=== PATIENT | female | born 1955 | race African-American/Black ===

== ENCOUNTER 2016-10-25 19:25 | Emergency (ER) | payer OTHER ==
[~2016-10-25] VITALS: Ht 157.5 cm; Wt 56.7 kg
[2016-10-25 19:31] VITALS: BP 166/84
--- NOTE | 2016-10-25 19:45 | PHYS DOC ---
Past Medical History Past Medical History: Asthma, [place] Past Surgical History: Other Additional Past Surgical Histo: 're-did my valves' Alcohol Use: None Drug Use: None Adult General Chief Complaint Chief Complaint: ELBOW PROBLEM HPI HPI Patient is a 61 year old male presents emergency department stating that she fell about 2 weeks ago and landed on her left elbow. She states that she is here tonight because she has fluid on the elbow. She denies any numbness or tingling into the hands. She has full range of motion of the left elbow. She does state she is right-hand dominant. Shunt denies any fever, chills or any nausea vomiting. Review of Systems Review of Systems Constitutional: Denies fever or chills [] Eyes: Denies change in visual acuity, redness, or eye pain [] HENT: Denies nasal congestion or sore throat [] Respiratory: Denies cough or shortness of breath [] Cardiovascular: No additional information not addressed in HPI [] GI: Denies abdominal pain, nausea, vomiting, bloody stools or diarrhea [] : Denies dysuria or hematuria [] Musculoskeletal: Denies back pain. C/o left elbow having water on it Integument: Denies rash or skin lesions [] Neurologic: Denies headache, focal weakness or sensory changes [] Allergies Allergies Allergies Coded Allergies Type Severity Reaction Last Updated Verified hydrocodone Allergy Intermediate Itching 10/25/16 Yes Physical Exam Physical Exam Constitutional: Well developed, well nourished, no acute distress, non-toxic appearance. [] HENT: Normocephalic, atraumatic, bilateral external ears normal, oropharynx moist, no oral exudates, nose normal. [] Eyes: PERRLA, EOMI, conjunctiva normal, no discharge. [] Neck: Normal range of motion, no tenderness, supple, no stridor. [] Cardiovascular:Heart rate regular rhythm Lungs & Thorax: Bilateral breath sounds clear to auscultation [] Skin: Warm, dry, no erythema, no rash. [] Back: No tenderness Extremities: No tenderness, no cyanosis, no clubbing, ROM intact, no edema. Left elbow appears to have swelling noted, no redness, no warmth and no drainage noted from the site. Patient with full ROM noted. peripheral pulses 2+ cap refill brick < 2 seconds. Neurologic: Alert and oriented X 3, normal motor function, normal sensory function, no focal deficits noted. [] Psychologic: Affect normal, judgement normal, mood normal. [] Current Patient Data Vital Signs Vital Signs Date Time Temp Pulse Resp B/P Pulse Ox O2 Delivery O2 Flow Rate FiO2 10/25/16 19:31 98.5 75 20 96 Room Air 98.5 EKG EKG [] Radiology/Procedures Radiology/Procedures [] Course & Med Decision Making Course & Med Decision Making Pertinent Labs and Imaging studies reviewed. (See chart for details) X-rays were negative for any bony abnormalities. No significant effusion noted at the elbow although there does appear to be swelling along the forearm area per Dr. Rossi. Patient will be placed in a sling with recommendations for ice packs on 20 minutes off 20 minutes several times today also recommended patient to take ibuprofen 600 mg every 8 hours. He'll follow-up with orthopedic. Signs and symptoms to return back to emergency department was provided. Patient agrees with discharge instructions treatment regimens and follow-up recommendations. [] Dragon Disclaimer Dragon Disclaimer This electronic medical record was generated, in whole or in part, using a voice recognition dictation system. Departure Departure Impression: Primary Impression: Elbow pain, left Disposition: 01 HOME, SELF-CARE Condition: STABLE Referrals: NO PCP (PCP) LISSETH FOSS MD Patient Instructions: Elbow Injury-Brief Additional Instructions: Activity as tolerated Ibuprofen 600 mg every 8 hours with food, stop taking if you develop upset stomach Wear the sling for comfort You make take the arm out of the sling several times a day Ice packs on 20 minutes and off 20 minutes several times a day Followup with orthopedic in 1 weeks Return to emergency department as needed for signs and symptoms that become worse. CASTILLO ROSADO APRN Oct 25, 2016 19:45
--- NOTE | 2016-10-26 08:41 | RAD ---
Left elbow, 3 views, 10/25/2016: History: Fall, elbow pain No fracture or dislocation is identified. There is mild spurring at the elbow joint. No joint effusion is seen. There is a prominent lucency projected over the deep soft tissues at the proximal forearm level. The appearance suggests the present of a fatty mass such as a lipoma. IMPRESSION: 1. No acute bony abnormality is detected. 2. Low-density mass in the proximal forearm, most likely a lipoma.
== END 2016-10-25 20:15 | disposition home or self-care (01) ==
LOC: ER 19:25
DX: M25.522 Pain in left elbow (principal); J45.909 Unspecified asthma, uncomplicated; I25.2 Old myocardial infarction; Z88.6 Allergy status to analgesic agent
CPT/HCPCS: 73080; 99284

== ENCOUNTER 2017-01-17 13:25 | Emergency (ER) | payer OTHER ==
[2017-01-17 13:53] LABS: BASO # 0.1 x10^3/uL (0.0-0.2); BASO % 1 % (0-3); EOS % 0 % (0-3); HEMATOCRIT 39.3 % (36.0-47.0); LYMPH # 2.7 x10^3/uL (1.0-4.8); LYMPH % 33 % (24-48); MEAN CORPUSCULAR HEMOGLOBIN 31 pg (25-35); MEAN CORPUSCULAR HGB CONC 33 g/dL (31-37); MEAN CORPUSCULAR VOLUME 93 fL (79-100); MONO % 5 % (0-9); NEUT % 61 % (31-73); PLATELET COUNT 252 x10^3/uL (140-400); RED BLOOD COUNT 4.23 x10^6/uL (3.50-5.40); RED CELL DISTRIBUTION WIDTH 14.4 % (11.5-14.5); WHITE BLOOD COUNT 8.2 x10^3/uL (4.0-11.0)
[2017-01-17 14:05] LABS: CALCIUM 9.1 mg/dL (8.5-10.1); CREATININE 0.8 mg/dL (0.6-1.0); GFR 87.9; POTASSIUM 3.7 mmol/L (3.5-5.1)
[2017-01-17 14:11] LABS: ALBUMIN 4.1 g/dL (3.4-5.0); ALBUMIN/GLOBULIN RATIO 1.3 (1.0-1.7); MAGNESIUM 1.9 mg/dL (1.8-2.4); TOTAL PROTEIN 7.3 g/dL (6.4-8.2)
[2017-01-17 14:23] LABS: PROTHROMBIN TIME PATIENT 12.9 SEC (11.7-14.0)
[2017-01-17] MEDS ORDERED: IPRATRPIUM/ALBUTEROL 0.5/2.5MG 3 ML NEBU. NEB ONE (14:30)
[2017-01-17] MEDS ORDERED: fentaNYL PF VIAL 100 MCG/2 ML VIAL IV ONE (14:30)
[2017-01-17] MEDS ORDERED: DEXAMETHASONE SOD PHOS 20 MG/5 ML VIAL. IV ONE (14:30)
[2017-01-17] MEDS ORDERED: PROAIR HFA8.5 GM INH (14:41)
--- NOTE | 2017-01-17 14:41 | PHYS DOC ---
Past Medical History Past Medical History: Asthma, [place] Past Surgical History: Other Additional Past Surgical Histo: 're-did my valves' Alcohol Use: None Drug Use: None Adult General Chief Complaint Chief Complaint: CHEST PAIN HPI HPI Patient is a 61 year old female presenting to the emergency department for evaluation of left-sided chest pain has been going on since last night and has persisted all day today. Cannot describe the pain and says that it is not tight pressure achy burning sharp stabbing. She says it just hurts. Patient says that she has some shortness of breath with it but no nausea vomiting diaphoresis. Patient said that she has a history of heart attacks and her last heart attack was in 1994 that she required no stents. Her trencher driver as it [facility] but she does not remember who it is and she says she has an appointment with cardiology in July. Patient took a full dose aspirin and nitroglycerin and neither helped her pain. Review of Systems Review of Systems Constitutional: Denies fever or chills [] Eyes: Denies change in visual acuity, redness, or eye pain [] HENT: Denies nasal congestion or sore throat [] Respiratory: Denies cough. + shortness of breath [] Cardiovascular: + CP GI: Denies abdominal pain, nausea, vomiting, bloody stools or diarrhea [] : Denies dysuria or hematuria [] Musculoskeletal: Denies back pain or joint pain [] Integument: Denies rash or skin lesions [] Neurologic: Denies headache, focal weakness or sensory changes [] Current Medications Current Medications Current Medications Medications (Trade) Dose Ordered Sig/[facility] Start Time Stop Time Status Last Admin Dose Admin Albuterol/ Ipratropium (Duoneb) 3 ml 1X ONCE 01/17/17 14:30 01/17/17 14:31 DC Dexamethasone Sodium Phosphate (Decadron) 8 mg 1X ONCE 01/17/17 14:30 01/17/17 14:31 DC Fentanyl Citrate (Fentanyl 2ml Vial) 75 mcg 1X ONCE 01/17/17 14:30 01/17/17 14:31 DC Allergies Allergies Allergies Coded Allergies Type Severity Reaction Last Updated Verified hydrocodone Allergy Intermediate Itching 10/25/16 Yes Physical Exam Physical Exam Constitutional: Well developed, well nourished, no acute distress, non-toxic appearance. [] HENT: Normocephalic, atraumatic, bilateral external ears normal, oropharynx moist, no oral exudates, nose normal. [] Eyes: PERRLA, EOMI, conjunctiva normal, no discharge. [] Neck: Normal range of motion, no tenderness, supple, no stridor. [] Cardiovascular:Heart rate regular rhythm, no murmur [] Lungs & Thorax: Bilateral breath sounds diminished with inspiratory and expiratory wheezing. Abdomen: Bowel sounds normal, soft, no tenderness, no masses, no pulsatile masses. [] Skin: Warm, dry, no erythema, no rash. [] Back: No tenderness, no CVA tenderness. [] Extremities: No tenderness, no cyanosis, no clubbing, ROM intact, no edema. [] Neurologic: Alert and oriented X 3, normal motor function, normal sensory function, no focal deficits noted. [] Current Patient Data Vital Signs Vital Signs Date Time Temp Pulse Resp B/P (MAP) Pulse Ox O2 Delivery O2 Flow Rate FiO2 01/17/17 13:33 98.6 91 20 146/69 (94) 96 Room Air 98.6 Lab Values Laboratory Tests Test 01/17/17 13:43 White Blood Count 8.2 x10^3/uL (4.0-11.0) Red Blood Count 4.23 x10^6/uL (3.50-5.40) Hemoglobin 13.0 g/dL (12.0-15.5) Hematocrit 39.3 % (36.0-47.0) Mean Corpuscular Volume 93 fL (79-100) Mean Corpuscular Hemoglobin 31 pg (25-35) Mean Corpuscular Hemoglobin Concent 33 g/dL (31-37) Red Cell Distribution Width 14.4 % (11.5-14.5) Platelet Count 252 x10^3/uL (140-400) Neutrophils (%) (Auto) 61 % (31-73) Lymphocytes (%) (Auto) 33 % (24-48) Monocytes (%) (Auto) 5 % (0-9) Eosinophils (%) (Auto) 0 % (0-3) Basophils (%) (Auto) 1 % (0-3) Neutrophils # (Auto) 4.9 x10^3uL (1.8-7.7) Lymphocytes # (Auto) 2.7 x10^3/uL (1.0-4.8) Monocytes # (Auto) 0.4 x10^3/uL (0.0-1.1) Eosinophils # (Auto) 0.0 x10^3/uL (0.0-0.7) Basophils # (Auto) 0.1 x10^3/uL (0.0-0.2) Prothrombin Time 12.9 SEC (11.7-14.0) Prothrombin Time INR 1.0 (0.8-1.1) PTT 27 SEC (24-38) Sodium Level 143 mmol/L (136-145) Potassium Level 3.7 mmol/L (3.5-5.1) Chloride Level 104 mmol/L (98-107) Carbon Dioxide Level 31 mmol/L (21-32) Anion Gap 8 (6-14) Blood Urea Nitrogen 12 mg/dL (7-20) Creatinine 0.8 mg/dL (0.6-1.0) Estimated GFR (Cockcroft-Gault) 87.9 BUN/Creatinine Ratio 15 (6-20) Glucose Level 96 mg/dL (70-99) Calcium Level 9.1 mg/dL (8.5-10.1) Magnesium Level 1.9 mg/dL (1.8-2.4) Total Bilirubin 1.0 mg/dL (0.2-1.0) Aspartate Amino Transferase (AST) 26 U/L (15-37) Alanine Aminotransferase (ALT) 29 U/L (14-59) Alkaline Phosphatase 71 U/L (46-116) Creatine Kinase 79 U/L (26-192) Troponin I Quantitative < 0.017 ng/mL (0.000-0.055) AX-Awx-I-Type Natriuretic Peptide 514 pg/mL (0-124) H Total Protein 7.3 g/dL (6.4-8.2) Albumin 4.1 g/dL (3.4-5.0) Albumin/Globulin Ratio 1.3 (1.0-1.7) Lipase 143 U/L (73-393) Laboratory Tests 01/17/17 13:43 Laboratory Tests 01/17/17 13:43 EKG EKG Sinus rhythm at 99 beats per minutes with leftward axis no obvious ST elevation or depression that she has inverted T waves in leads V1 and V2 and aVR. Radiology/Procedures Radiology/Procedures normal mediastinum, normal heart size. No obvious free air or pneumothorax or opacity. Course & Med Decision Making Course & Med Decision Making Patient with abnormal EKG in the setting of an elderly woman with multiple risk factors and prior heart attack so I recommended admission to the hospital. Patient refused stating that her grandchildren are in town and that she cannot stay in the hospital. She verbalized understanding of the limitations of the test I can do in the emergency department and she accepted the risks of and disability by leaving against my advice. I told her to use the albuterol and take her aspirin daily and follow with the trencher driver within 72 hours and come back to the ER sooner with any new worsening pain fevers vomiting or other general concerns. Dragon Disclaimer Dragon Disclaimer This electronic medical record was generated, in whole or in part, using a voice recognition dictation system. Departure Departure Impression: Primary Impression: Chest pain Additional Impression: Wheezing Disposition: HOME, SELF-CARE Condition: GOOD Referrals: MELVI SCOTT MD Patient Instructions: Chest Pain (Nonspecific) Additional Instructions: Take a full dose aspirin daily and follow with the trencher driver and come back to the ED sooner with any new or worsening symptoms. Thank you! Scripts Albuterol Sulfate (PROAIR HFA INHALER) 8.5 Gm Hfa.aer.ad 1 PUFF INH Q4HRS Y for SHORTNESS OF BREATH, #1 INHALER 0 Refills Prov: JAE FUENTES DO 01/17/17 Problem Qualifiers Primary Impression: Chest pain Chest pain type: unspecified Qualified Codes: R07.9 - Chest pain, unspecified JAE FUENTES DO Jan 17, 2017 14:41
[2017-01-17 15:00] VITALS: BP 179/79
--- NOTE | 2017-01-17 15:49 | RAD ---
EXAM: Chest one view. HISTORY: Left chest pain. COMPARISON: None. FINDINGS: A frontal view of the chest is obtained. There are changes of coronary artery bypass grafting. There are no confluent infiltrates. There is no pneumothorax or pleural effusion. The heart is at the upper limits of normal size. The aorta is calcified and tortuous. IMPRESSION: 1. No confluent infiltrates.
--- NOTE | 2017-01-18 06:39 | EKG ---
[facility] [address] [place] [address] Test Date: 2017-01-17 Test Time: 13:37:41 Pat Name: ADE NOVAK Department: Room: Gender: F Water Tester: : 1955 Requested By: JAE FUENTES Order Number: [id number] Reading MD: Quinton Ennis Measurements Intervals [place] Rate: 99 P: 132 HI: 134 QRS: -172 QRSD: 74 T: 63 QT: 354 QTc: 460 Interpretive Statements SINUS TACHCYARDIA RVH LIMB LEAD MISPLACEMENT NON-SPECIFIC ST/T CHANGES Electronically Signed On 01-18-2017 9:39:54 CDT by Quinton Ennis
== END 2017-01-17 15:33 | disposition home or self-care (01) ==
LOC: ER 13:25
DX: R07.89 Other chest pain (principal); R06.2 Wheezing; R06.02 Shortness of breath; J45.909 Unspecified asthma, uncomplicated; I25.2 Old myocardial infarction; Z88.5 Allergy status to narcotic agent
CPT/HCPCS: 36415; 71010; 80053; 82550; 83690; 83735; 83880; 84484; 85027; 85610; 85730; 93005; 94250; 94640; 96374; 96375; 99285; J1100; J3010; J7620

== ENCOUNTER 2017-02-22 14:13 | Emergency (ER) | payer OTHER ==
[~2017-02-22] VITALS: Ht 157.5 cm; Wt 56.7 kg
[~2017-02-22 14:13] MED LIST: PROAIR HFA8.5 GM INH
[2017-02-22] MEDS ORDERED: IV NORMAL SALINE 1000ML BAG 1,000 ML IV SCH (14:35)
--- NOTE | 2017-02-22 14:44 | EKG ---
[facility] [address] [place] [address] Test Date: 2017-02-22 Test Time: 14:21:52 Pat Name: ADE NOVAK Department: Room: Gender: F Singing Messenger: : 1955 Requested By: DEE WILLETT Order Number: [id number] Reading MD: Measurements Intervals [place] Rate: 54 P: 53 NC: 170 QRS: -8 QRSD: 78 T: 80 QT: 440 QTc: 419 Interpretive Statements SINUS RHYTHM LEFT ATRIAL ABNORMALITY LEFTWARD AXIS R-S TRANSITION ZONE IN V LEADS DISPLACED TO THE RIGHT QRS(T) CONTOUR ABNORMALITY CONSIDER ANTEROSEPTAL MYOCARDIAL DAMAGE ST & T ABNORMALITY, CONSIDER ANTERIOR ISCHEMIA OR LEFT VENTRICULAR STRAIN HIGH LATERAL ISCHEMIA OR LEFT VENTRICULAR STRAIN RI6.01 Unconfirmed report No previous ECG available for comparison
[2017-02-22] MEDS ORDERED: ASPIRIN CHEWABLE 81 MG TABLET. PO ONE (14:45)
[2017-02-22] MEDS ORDERED: 0.9 % SODIUM CHLORIDE 10 ML DISP.SYRIN. IV PRN (14:45)
--- NOTE | 2017-02-22 14:45 | PHYS DOC ---
Past Medical History Past Medical History: Asthma, Hypertension, LA Past Surgical History: Other Additional Past Surgical Histo: 're-did my valves',OPEN HEART Smoking: Cigarettes Additional Information: PATIENT STATES, "STOPPED SMOKING 3 DAYS AGO." Alcohol Use: None Drug Use: None Adult General Chief Complaint Chief Complaint: CHEST PAIN [facility] HPI Is patient is a pleasant 61-year-old female with a history of LA back in 1997 presents with chest pain that began 2 days ago on Tuesday at rest. She describes the chest pain as dull and achy as a pressure over her left breast that is been continuous for the last 2 days. It is worsened with range of motion at the shoulder is not change with position but it is increased with exertion. The pain does not radiate to her neck, back, shoulder, abdomen. Patient denies any direct trauma, denies any recent URI symptoms like cough, runny nose, congestion , fevers, chills, patient normally gets her care at [facility] in today because the chest pain. Nothing makes it feel any better. It is not improved with rest or her medications. Differential diagnosis for chest pain: Pericarditis, myocarditis, endocarditis, pneumothorax, pneumonia, aortic dissection, esophageal spasm, esophagitis, peptic ulcer disease, acute coronary syndrome, mediastinitis, Boerhaave syndrome , musculoskeletal chest wall pain, costochondritis, intercostal strain, rib fracture, pulmonary contusion, pneumonitis, pleural effusion, pericardial effusion, pericardial tamponode, and pleurisy. Was considered upon arrival patient had immediate emergent EKG, chest x-ray, appropriate cardiac workup given aspirin and pain medications. Review of Systems Review of Systems Constitutional: Denies fever or chills [] Eyes: Denies change in visual acuity, redness, or eye pain [] HENT: Denies nasal congestion or sore throat [] Respiratory: Denies cough or shortness of breath [] Cardiovascular: No additional information not addressed in HPI [] GI: Denies abdominal pain, nausea, vomiting, bloody stools or diarrhea [] : Denies dysuria or hematuria [] Musculoskeletal: Denies back pain or joint pain [] Integument: Denies rash or skin lesions [] Neurologic: Denies headache, focal weakness or sensory changes [] Endocrine: Denies polyuria or polydipsia [] Current Medications Current Medications Current Medications Medications (Trade) Dose Ordered Sig/Jody Start Time Stop Time Status Last Admin Dose Admin Aspirin (Children'S Aspirin) 243 mg 1X ONCE 02/22/17 14:45 02/22/17 14:46 DC 02/22/17 15:16 243 MG Fentanyl Citrate (Fentanyl 2ml Vial) 25 mcg PRN Q15MIN PRN 02/22/17 14:45 02/23/17 14:44 02/22/17 16:55 25 MCG Sodium Chloride (Normal Saline Flush) 10 ml QSHIFT PRN 02/22/17 14:45 02/22/17 15:23 10 ML Allergies Allergies Allergies Coded Allergies Type Severity Reaction Last Updated Verified hydrocodone Allergy Intermediate Itching 10/25/16 Yes Physical Exam Physical Exam Is patient's vital signs were reviewed from the nursing notes and his parents she is mildly bradycardic and hypertensive. Constitutional: Well developed, well nourished, no acute distress, non-toxic appearance. [] HENT: Normocephalic, atraumatic, bilateral external ears normal, oropharynx moist, no oral exudates, nose normal. [] Eyes: PERRLA, EOMI, conjunctiva normal, no discharge. [] Neck: Normal range of motion, no tenderness, supple, no stridor. [] Cardiovascular:Heart rate regular rhythm, no murmur is and has chest wall tenderness that is slightly reproducible on exam. Over the left breast. There is no obvious signs of trauma no rash no crepitus Lungs & Thorax: Bilateral breath sounds clear to auscultation [] Abdomen: Bowel sounds normal, soft, no tenderness, no masses, no pulsatile masses. [] Skin: Warm, dry, no erythema, no rash. [] Back: No tenderness, no CVA tenderness. [] Extremities: No tenderness, no cyanosis, no clubbing, ROM intact, no edema. [] Neurologic: Alert and oriented X 3, normal motor function, normal sensory function, no focal deficits noted. [] Psychologic: Affect normal, judgement normal, mood normal. [] Current Patient Data Vital Signs Vital Signs Date Time Temp Pulse Resp B/P (MAP) Pulse Ox O2 Delivery O2 Flow Rate FiO2 02/22/17 16:55 17 100 Room Air 02/22/17 14:18 98.5 56 169/73 (105) 98.5 Lab Values Laboratory Tests Test 02/22/17 14:40 02/22/17 16:45 White Blood Count 4.5 x10^3/uL (4.0-11.0) Red Blood Count 3.99 x10^6/uL (3.50-5.40) Hemoglobin 12.4 g/dL (12.0-15.5) Hematocrit 37.5 % (36.0-47.0) Mean Corpuscular Volume 94 fL (79-100) Mean Corpuscular Hemoglobin 31 pg (25-35) Mean Corpuscular Hemoglobin Concent 33 g/dL (31-37) Red Cell Distribution Width 14.7 % (11.5-14.5) H Platelet Count 183 x10^3/uL (140-400) Neutrophils (%) (Auto) 49 % (31-73) Lymphocytes (%) (Auto) 43 % (24-48) Monocytes (%) (Auto) 8 % (0-9) Eosinophils (%) (Auto) 0 % (0-3) Basophils (%) (Auto) 0 % (0-3) Neutrophils # (Auto) 2.2 x10^3uL (1.8-7.7) Lymphocytes # (Auto) 1.9 x10^3/uL (1.0-4.8) Monocytes # (Auto) 0.3 x10^3/uL (0.0-1.1) Eosinophils # (Auto) 0.0 x10^3/uL (0.0-0.7) Basophils # (Auto) 0.0 x10^3/uL (0.0-0.2) Sodium Level 140 mmol/L (136-145) Potassium Level 3.0 mmol/L (3.5-5.1) L Chloride Level 103 mmol/L (98-107) Carbon Dioxide Level 28 mmol/L (21-32) Anion Gap 9 (6-14) Blood Urea Nitrogen 7 mg/dL (7-20) Creatinine 0.6 mg/dL (0.6-1.0) Estimated GFR (Cockcroft-Gault) 122.6 Glucose Level 125 mg/dL (70-99) H Calcium Level 9.2 mg/dL (8.5-10.1) Magnesium Level 1.7 mg/dL (1.8-2.4) L Total Bilirubin 0.7 mg/dL (0.2-1.0) Direct Bilirubin 0.1 mg/dL (0.0-0.2) Aspartate Amino Transferase (AST) 22 U/L (15-37) Alanine Aminotransferase (ALT) 31 U/L (14-59) Alkaline Phosphatase 61 U/L (46-116) Creatine Kinase 84 U/L (26-192) Creatine Kinase MB (Mass) < 0.5 ng/mL (0.0-3.6) Creatine Kinase MB Relative Index 0.6 % (0-4) Troponin I Quantitative < 0.017 ng/mL (0.000-0.055) DU-Mfm-J-Type Natriuretic Peptide 761 pg/mL (0-124) H Total Protein 6.7 g/dL (6.4-8.2) Albumin 3.8 g/dL (3.4-5.0) Lipase 163 U/L (73-393) Urine Collection Type Unknown Urine Color Yellow Urine Clarity Clear Urine pH 7.0 Urine Specific [place] 1.010 Urine Protein Negative mg/dL (NEG-TRACE) Urine Glucose (UA) Negative mg/dL (NEG) Urine Ketones (Stick) Negative mg/dL (NEG) Urine Blood Negative (NEG) Urine Nitrite Negative (NEG) Urine Bilirubin Negative (NEG) Urine Urobilinogen Dipstick 1.0 mg/dL (0.2 mg/dL) Urine Leukocyte Esterase Small (NEG) Urine RBC 0 /HPF (0-2) Urine WBC Occ /HPF (0-4) Urine Squamous Epithelial Cells Mod /LPF Urine Bacteria Few /HPF (0-FEW) Urine Mucus Mod /LPF Laboratory Tests 02/22/17 14:40 Laboratory Tests 02/22/17 14:40 EKG EKG EKG timed 2:21 PM 02/22/2017 demonstrates normal sinus rhythm heart rate 54 bradycardic with left axis deviation patient has an old Q-wave in V1 which is likely secondary to her prior LA. Patient is T-wave inversion and T-wave flattening in the lateral leads. This is an abnormal EKG. Read by Dr. Willett. [ ] Radiology/Procedures Radiology/Procedures [] IMAGING REPORT Signed PATIENT: ADE NOVAK ACCOUNT: [id number] : 1955 LOCATION: ER AGE: 61 SEX: F EXAM STATUS: REG ER ORD. PHYSICIAN: DEE WILLETT MD REASON: chest pain PROCEDURE: CHEST PA & LATERAL Indication left-sided chest pain. PA and lateral views of the chest were obtained. Comparison is made to a study 01/17/2017. Heart size and pulmonary vessels are normal. Postoperative changes in the chest are noted. The lungs are clear of acute infiltrates. Significant pleural fluid is not seen. There is no pneumothorax. Bony structures appear grossly intact. IMPRESSION: No acute or focal process seen in the chest DICTATED and SIGNED BY: ADAM FLEMING MD DATE: 02/22/17 1504 CC: DEE WILLETT MD; UNKNOWN PCP NAME ~ Course & Med Decision Making Course & Med Decision Making Pertinent Labs and Imaging studies reviewed. (See chart for details) and presents with continuous chest pain for 2 daysDifferential diagnosis for chest pain: Pericarditis, myocarditis, endocarditis, pneumothorax, pneumonia, aortic dissection, esophageal spasm, esophagitis, peptic ulcer disease, acute coronary syndrome, mediastinitis, Boerhaave syndrome, musculoskeletal chest wall pain, costochondritis, intercostal strain, rib fracture, pulmonary contusion, pneumonitis, pleural effusion, pericardial effusion, pericardial tamponode, and pleurisy. Was considered upon arrival. Patient has easily reproducible chest pain on examination. But given her cardiac history I felt it prudent to explore this with a little more thoroughness. Patient had x-ray and EKG, cardiac workup to include troponin, BNP, CBC CMP and urinalysis. Patientmild hypokalemia with a negative troponin and mildly elevated BNP and x-ray findings or physical exam findings of congestive heart failure. sHe is symptom-free at this time and will follow-up [facility] in the future. Patient tells me that their symptoms given during CC are improved. Time is now 5 PM he feels markedly better and feels reassured that her troponin is negative Plan for discharge and is to follow-up with cardiology in the next 24-48 hours for repeat evaluation. 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 History: Highly suspicious 2 points moderately suspicious 1. slightly suspicious 0 point EKG: ST segment depression 2. nonspecific repolarization disturbance 1. normal 0 point Age: Greater than 65 2 points, 65-45 1., less than 45 years old 0 points Risk factors:> 3 risk factors 2 points, 1-2 risk factors one point, no risk factors 0 point Troponin: > 2 times normal 2 points, 1-2 times normal 1., normal limits 0 point Total score: Score % pts MACE/n MACE Policy 0-3 32% 1.9% 0.05% Discharge 4-6 51% 413/3136 13% 1.3% Observation Risk management 7-10 17% 518/1045 50% 2.8% Observation Treatment, CAG [] Impression chest pain of unclear etiology Disposition: PCP referral in next 24-48 hours with referral to cardiology within the next week. Asked to return for any new or increasing symptoms, chest pain not relieved with her medications at home or if she has new questions or concerns. Dragon Disclaimer Dragon Disclaimer This electronic medical record was generated, in whole or in part, using a voice recognition dictation system. Departure Departure Impression: Primary Impression: Chest pain Additional Impression: Hypokalemia Disposition: HOME, SELF-CARE Condition: IMPROVED Referrals: UNKNOWN PCP NAME (PCP) Patient Instructions: Chest Pain (Nonspecific), Hypokalemia Additional Instructions: Although your presentation is low risk for cardiac chest pain at this time I would advise a follow-up with your primary care doctor next 24-48 hours. Please return immediately for any new or increasing chest pain or feel any question concerns. Although there is no evidence of damage today we know he of heart disease and he would be advised to return immediately for any new or increasing chest pain. Scripts Potassium Chloride (POTASSIUM CHLORIDE) 10 Meq Capsule.er 10 MEQ PO DAILY for 10 Days, #10 TAB.SR Prov: DEE WILLETT MD 02/22/17 Naproxen (NAPROSYN) 500 Mg Tablet 1 TAB PO BID, #14 TAB 1 Refill Prov: DEE WILLETT MD 02/22/17 Problem Qualifiers DEE WILLETT MD Feb 22, 2017 14:45
[2017-02-22 14:53] LABS: BASO % 0 % (0-3); EOS % 0 % (0-3); HEMATOCRIT 37.5 % (36.0-47.0); HEMOGLOBIN 12.4 g/dL (12.0-15.5); LYMPH # 1.9 x10^3/uL (1.0-4.8); LYMPH % 43 % (24-48); MEAN CORPUSCULAR HEMOGLOBIN 31 pg (25-35); MEAN CORPUSCULAR HGB CONC 33 g/dL (31-37); MEAN CORPUSCULAR VOLUME 94 fL (79-100); MONO % 8 % (0-9); NEUT % 49 % (31-73); PLATELET COUNT 183 x10^3/uL (140-400); RED BLOOD COUNT 3.99 x10^6/uL (3.50-5.40); RED CELL DISTRIBUTION WIDTH 14.7 % (11.5-14.5); WHITE BLOOD COUNT 4.5 x10^3/uL (4.0-11.0)
--- NOTE | 2017-02-22 15:09 | RAD ---
Indication left-sided chest pain. PA and lateral views of the chest were obtained. Comparison is made to a study 01/17/2017. Heart size and pulmonary vessels are normal. Postoperative changes in the chest are noted. The lungs are clear of acute infiltrates. Significant pleural fluid is not seen. There is no pneumothorax. Bony structures appear grossly intact. IMPRESSION: No acute or focal process seen in the chest
[2017-02-22 15:14] LABS: ALBUMIN 3.8 g/dL (3.4-5.0); CALCIUM 9.2 mg/dL (8.5-10.1); CREATININE 0.6 mg/dL (0.6-1.0); DIRECT BILIRUBIN 0.1 mg/dL (0.0-0.2); GFR 122.6; MAGNESIUM 1.7 mg/dL (1.8-2.4); TOTAL BILIRUBIN 0.7 mg/dL (0.2-1.0); TOTAL PROTEIN 6.7 g/dL (6.4-8.2)
[2017-02-22 15:22] LABS: CREATINE KINASE 84 U/L (26-192)
[2017-02-22] MEDS: fentaNYL PF VIAL 100 MCG/2 ML VIAL IV PRN ×2 (15:22→16:55)
[2017-02-22 15:28] LABS: CKMB MASS < 0.5 ng/mL (0.0-3.6)
[2017-02-22 17:02] LABS: BILIRUBIN,URINE NEGATIVE (NEG); GLUCOSE,URINE NEGATIVE (NEG); NITRITE,URINE NEGATIVE (NEG); PROTEIN,URINE NEGATIVE (NEG-TRACE)
[2017-02-22 17:14] LABS: BACTERIA,URINE FEW /HPF (0-FEW); RBC,URINE 0 /HPF (0-2); SQUAMOUS EPITHELIAL CELL,UR MOD /LPF; WBC,URINE OCC /HPF (0-4)
[2017-02-22] MEDS ORDERED: NAPR500T PO (17:42)
[2017-02-22] MEDS ORDERED: POTASSIUM CHLO10 MEQ PO (17:43)
[2017-02-22 17:59] VITALS: BP 168/75
== END 2017-02-22 18:02 | disposition home or self-care (01) ==
LOC: ER 14:13
DX: R07.89 Other chest pain (principal); E87.6 Hypokalemia; R00.1 Bradycardia, unspecified; J45.909 Unspecified asthma, uncomplicated; I10 Essential (primary) hypertension; I25.2 Old myocardial infarction; F17.210 Nicotine dependence, cigarettes, uncomplicated; Z95.1 Presence of aortocoronary bypass graft; Z88.5 Allergy status to narcotic agent
CPT/HCPCS: 36415; 71020; 80048; 80076; 81001; 82553; 83690; 83735; 83880; 84484; 85027; 87086; 93005; 96361; 96374; 96376; 99285; J3010; J7030

== ENCOUNTER 2017-02-24 16:43 | Emergency (ER) | payer OTHER ==
[~2017-02-24] VITALS: Ht 157.5 cm; Wt 56.7 kg
[~2017-02-24 16:43] MED LIST changes: +NAPR500T PO; +POTASSIUM CHLO10 MEQ PO
[2017-02-24 17:06] LABS: BASO # 0.1 x10^3/uL (0.0-0.2); BASO % 1 % (0-3); EOS % 1 % (0-3); HEMATOCRIT 36.9 % (36.0-47.0); LYMPH # 2.5 x10^3/uL (1.0-4.8); LYMPH % 30 % (24-48); MEAN CORPUSCULAR HEMOGLOBIN 31 pg (25-35); MEAN CORPUSCULAR HGB CONC 33 g/dL (31-37); MEAN CORPUSCULAR VOLUME 95 fL (79-100); MONO % 8 % (0-9); NEUT % 61 % (31-73); PLATELET COUNT 194 x10^3/uL (140-400); RED BLOOD COUNT 3.89 x10^6/uL (3.50-5.40); RED CELL DISTRIBUTION WIDTH 14.7 % (11.5-14.5); WHITE BLOOD COUNT 8.3 x10^3/uL (4.0-11.0)
[2017-02-24 17:18] LABS: INR 0.9 (0.8-1.1)
[2017-02-24 17:28] LABS: BARBITURATES NEG (NEG); BENZODIAZEPINES NEG (NEG); CANNABINOIDS NEG (NEG); COCAINE NEG (NEG); METHADONE NEG (NEG); OPIATES NEG (NEG); PHENCYCLIDINE NEG (NEG)
--- NOTE | 2017-02-24 17:28 | PHYS DOC ---
Past Medical History Past Medical History: Asthma, Hypertension, [place] Past Surgical History: Other Additional Past Surgical Histo: 're-did my valves',OPEN HEART Additional Information: LESS THAN 0.25 PPD, PATIENT STATES, "I AM TRYING TO QUIT." Alcohol Use: None Drug Use: None Adult General Chief Complaint Chief Complaint: CHEST PAIN HPI HPI Patient is a 61 year old female who presents with achy left side chest pain x 2 weeks, constant in nature, no associated SOB. Worse with deep inspiration, no known trauma, no cough or fevers. PCP is Dr. Negrito Minaya. Patient reported that she had a heart attack in the past but when I asked that she had stents she reports that she had a valve replaced. 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 She does not recall her medications that she is supposed to be taking. Denies current smoking or any drug use. Review of Systems Review of Systems Constitutional: Denies fever or chills [] Eyes: Denies change in visual acuity, redness, or eye pain [] HENT: Denies nasal congestion or sore throat [] Respiratory: Denies cough or shortness of breath [] Cardiovascular: Per history of present illness GI: Denies abdominal pain, nausea, vomiting, bloody stools or diarrhea [] : Denies dysuria or hematuria [] Musculoskeletal: Denies back pain or joint pain [] Integument: Denies rash or skin lesions [] Neurologic: Denies headache, focal weakness or sensory changes [] Current Medications Current Medications Current Medications Medications (Trade) Dose Ordered Sig/Jody Start Time Stop Time Status Last Admin Dose Admin Albuterol/ Ipratropium (Duoneb) 3 ml 1X ONCE 02/24/17 18:00 02/24/17 18:01 DC 02/24/17 17:35 3 ML Aspirin (Tj Aspirin) 325 mg 1X ONCE 02/24/17 18:00 02/24/17 18:01 DC Ketorolac Tromethamine (Toradol) 30 mg 1X ONCE 02/24/17 18:00 02/24/17 18:01 DC 02/24/17 17:58 30 MG Allergies Allergies Allergies Coded Allergies Type Severity Reaction Last Updated Verified hydrocodone Allergy Intermediate Itching 10/25/16 Yes Physical Exam Physical Exam Constitutional: Well developed, well nourished, no acute distress, non-toxic appearance. constant moving and pt appears anxious HENT: Normocephalic, atraumatic, bilateral external ears normal, oropharynx moist, no oral exudates, nose normal. [] Eyes: PERRLA, EOMI, conjunctiva normal, no discharge. [] Neck: Normal range of motion, no tenderness, supple, no stridor. [] Cardiovascular:Heart rate regular with regular rhythm Lungs & Thorax: Bilateral breath sounds clear to auscultation, left side CP that is ttp and reproduces pt's pain. Abdomen:soft, no tenderness, no masses, no pulsatile masses. [] Skin: Warm, dry, no erythema, no rash. [] Back: No tenderness, no CVA tenderness. [] Extremities: No tenderness, no cyanosis, no clubbing, ROM intact, no edema. negative Homans bilaterally Neurologic: Alert and oriented X 3, normal motor function, normal sensory function, no focal deficits noted. [] Psychologic: Affect normal, judgement normal, mood normal. [] Current Patient Data Vital Signs Vital Signs Date Time Temp Pulse Resp B/P (MAP) Pulse Ox O2 Delivery O2 Flow Rate FiO2 02/24/17 17:37 99 Room Air 02/24/17 16:50 97.5 67 18 154/85 (108) 97.5 Lab Values Laboratory Tests Test 02/24/17 16:56 02/24/17 17:00 02/24/17 17:30 02/24/17 17:33 White Blood Count 8.3 x10^3/uL (4.0-11.0) # Red Blood Count 3.89 x10^6/uL (3.50-5.40) Hemoglobin 12.0 g/dL (12.0-15.5) Hematocrit 36.9 % (36.0-47.0) Mean Corpuscular Volume 95 fL (79-100) Mean Corpuscular Hemoglobin 31 pg (25-35) Mean Corpuscular Hemoglobin Concent 33 g/dL (31-37) Red Cell Distribution Width 14.7 % (11.5-14.5) H Platelet Count 194 x10^3/uL (140-400) Neutrophils (%) (Auto) 61 % (31-73) Lymphocytes (%) (Auto) 30 % (24-48) Monocytes (%) (Auto) 8 % (0-9) Eosinophils (%) (Auto) 1 % (0-3) Basophils (%) (Auto) 1 % (0-3) Neutrophils # (Auto) 5.1 x10^3uL (1.8-7.7) Lymphocytes # (Auto) 2.5 x10^3/uL (1.0-4.8) Monocytes # (Auto) 0.6 x10^3/uL (0.0-1.1) Eosinophils # (Auto) 0.0 x10^3/uL (0.0-0.7) Basophils # (Auto) 0.1 x10^3/uL (0.0-0.2) Prothrombin Time 12.0 SEC (11.7-14.0) Prothrombin Time INR 0.9 (0.8-1.1) Urine Opiates Screen Neg (NEG) Urine Methadone Screen Neg (NEG) Urine Barbiturates Neg (NEG) Urine Phencyclidine Screen Neg (NEG) Urine Amphetamine/Methamphetamine Neg (NEG) Urine Benzodiazepines Screen Neg (NEG) Urine Cocaine Screen Neg (NEG) Urine Cannabinoids Screen Neg (NEG) Urine Ethyl Alcohol Neg (NEG) Sodium Level 145 mmol/L (136-145) Potassium Level 4.0 mmol/L (3.5-5.1) Chloride Level 106 mmol/L (98-107) Carbon Dioxide Level 30 mmol/L (21-32) Anion Gap 9 (6-14) 13 mmol/L (6-14) Blood Urea Nitrogen 7 mg/dL (7-20) Creatinine 0.5 mg/dL (0.6-1.0) L Estimated GFR (Cockcroft-Gault) 151.3 BUN/Creatinine Ratio 14 (6-20) Glucose Level 97 mg/dL (70-99) 85 mg/dL (70-99) Calcium Level 8.8 mg/dL (8.5-10.1) Magnesium Level Pending Total Bilirubin Pending Aspartate Amino Transferase (AST) Pending Alanine Aminotransferase (ALT) Pending Alkaline Phosphatase Pending POC Troponin I 0.00 ng/ml (<0.08) Total Protein Pending Albumin Pending Albumin/Globulin Ratio Pending POC Hemoglobin 13.3 g/dL (12-15) POC Hematocrit 39 % (36-40) POC Sodium 141 mmol/L (135-145) POC Potassium 3.8 mmol/L (3.5-5.0) POC Chloride 103 mmol/L (98-110) POC Total CO2 31 mmol/L (23-32) POC Blood Urea Nitrogen 7 mg/dL (8-26) L POC Creatinine 0.7 mg/dL (0.5-1.4) POC Ionized Calcium (Ivette) 1.21 mmol/L (1.13-1.32) Laboratory Tests 02/24/17 16:56 Laboratory Tests 02/24/17 17:30 02/24/17 17:33 EKG EKG 55 bpm, sinus, normal axis, normal intervals, no ST elevation or depression appreciated, T-wave inversions in V3-V5[] Radiology/Procedures Radiology/Procedures CXR: No acute pulmonary, cardiac, or bony abnormality[] Course & Med Decision Making Course & Med Decision Making Pertinent Labs and Imaging studies reviewed. (See chart for details) Pt given aspirin and IV toradol. No acute findings on ED workup. pt to take naprosyn scheduled and f/u with Dr. Minaya. Terrance Disclaimer Terrance Disclaimer This electronic medical record was generated, in whole or in part, using a voice recognition dictation system. Departure Departure Impression: Primary Impression: Chest pain Disposition: HOME, SELF-CARE Condition: STABLE Referrals: UNKNOWN PCP NAME (PCP) Scripts Naproxen (NAPROSYN) 500 Mg Tablet 1 TAB PO BID, #30 TAB 0 Refills Take with food or milk Prov: CLEMENT OVALLE MD 02/24/17 CLEMENT OVALLE MD Feb 24, 2017 17:28
[2017-02-24 17:53] LABS: POTASSIUM ISTAT 3.8 mmol/L (3.5-5.0)
[2017-02-24 17:58] LABS: CALCIUM 8.8 mg/dL (8.5-10.1); CREATININE 0.5 mg/dL (0.6-1.0); GFR 151.3
[2017-02-24 18:00] VITALS: BP 136/74
[2017-02-24] MEDS ORDERED: ASPIRIN 325 MG TABLET PO ONE (18:00)
[2017-02-24] MEDS ORDERED: KETOROLAC TROMETHAMINE 30 MG/ML INJ. IV ONE (18:00)
[2017-02-24] MEDS ORDERED: IPRATRPIUM/ALBUTEROL 0.5/2.5MG 3 ML NEBU. NEB ONE (18:00)
[2017-02-24] MEDS ORDERED: NAPR500T PO (18:01)
[2017-02-24 18:03] LABS: ALBUMIN 3.8 g/dL (3.4-5.0); ALBUMIN/GLOBULIN RATIO 1.7 (1.0-1.7); MAGNESIUM 1.9 mg/dL (1.8-2.4); TOTAL BILIRUBIN 0.3 mg/dL (0.2-1.0)
--- NOTE | 2017-02-24 18:55 | EKG ---
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
--- NOTE | 2017-02-25 08:17 | RAD ---
Indication chest pain. A single view of the chest was obtained and is compared to an examination 2 days previously. Postoperative changes are noted. Heart size is unchanged. There is no acute parenchymal infiltrate. No pleural fluid or pneumothorax is seen. There has not been a significant change compared to the previous exam. IMPRESSION: No acute or focal process. No significant change
== END 2017-02-24 18:22 | disposition home or self-care (01) ==
LOC: ER 16:43
DX: R07.89 Other chest pain (principal); J45.909 Unspecified asthma, uncomplicated; I10 Essential (primary) hypertension; I25.2 Old myocardial infarction; F17.200 Nicotine dependence, unspecified, uncomplicated; Z95.1 Presence of aortocoronary bypass graft; Z95.2 Presence of prosthetic heart valve; Z88.5 Allergy status to narcotic agent
CPT/HCPCS: 36415; 71010; 80047; 80053; 80305; 80320; 83735; 83880; 84484; 85027; 85610; 93005; 94250; 94640; 96374; 99285; J1885; J7620; G0481

== ENCOUNTER 2018-04-27 16:23 | Inpatient (IN) | payer OTHER ==
[~2018-04-27] VITALS: Ht 157.5 cm; Wt 56.7 kg
[~2018-04-27 16:23] MED LIST changes: +NAPR-683 PO; -NAPR500T PO; +POTA10TA12 PO; -POTASSIUM CHLO10 MEQ PO
[2018-04-27] MEDS ORDERED: ASPIRIN CHEWABLE 81 MG TABLET. PO ONE (16:45)
[2018-04-27] MEDS: NITROGLYCERIN SUBLINGUAL 0.4 MG BOTTLE OF 25. SL PRN ×3 (17:02→17:28)
--- NOTE | 2018-04-27 17:13 | EKG ---
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
--- NOTE | 2018-04-27 17:34 | RAD ---
CHEST PA LATERAL History: Chest pain today Comparison: February 24, 2017 Findings: 2 views of the chest are submitted. There is no infiltrate, pneumothorax, or effusion. The cardiac silhouette is within normal limits in size. There again has been a medial sternotomy. There is atherosclerotic calcification near aortic arch. There may be emphysema. Impression: 1. There is no radiographic evidence of acute cardiopulmonary disease. Electronically signed by: Alex Medina MD (04/27/2018 5:30 PM) [id number]
[2018-04-27 18:07] LABS: BASO % 1 % (0-3); EOS % 1 % (0-3); HEMATOCRIT 39.2 % (36.0-47.0); HEMOGLOBIN 13.2 g/dL (12.0-15.5); LYMPH # 2.3 x10^3/uL (1.0-4.8); LYMPH % 43 % (24-48); MEAN CORPUSCULAR HEMOGLOBIN 31 pg (25-35); MEAN CORPUSCULAR HGB CONC 34 g/dL (31-37); MEAN CORPUSCULAR VOLUME 92 fL (79-100); MONO # 0.4 x10^3/uL (0.0-1.1); MONO % 7 % (0-9); NEUT # 2.6 x10^3uL (1.8-7.7); NEUT % 48 % (31-73); PLATELET COUNT 265 x10^3/uL (140-400); RED BLOOD COUNT 4.25 x10^6/uL (3.50-5.40); RED CELL DISTRIBUTION WIDTH 13.9 % (11.5-14.5); WHITE BLOOD COUNT 5.3 x10^3/uL (4.0-11.0)
[2018-04-27 18:20] LABS: CALCIUM 9.2 mg/dL (8.5-10.1); CREATININE 0.7 mg/dL (0.6-1.0); GFR 102.3
[2018-04-27 18:22] LABS: PROTHROMBIN TIME PATIENT 13.6 SEC (11.7-14.0)
[2018-04-27 18:26] LABS: ALBUMIN 4.2 g/dL (3.4-5.0); ALBUMIN/GLOBULIN RATIO 1.4 (1.0-1.7); TOTAL BILIRUBIN 0.9 mg/dL (0.2-1.0); TOTAL PROTEIN 7.3 g/dL (6.4-8.2)
--- NOTE | 2018-04-27 20:27 | EKG ---
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
[2018-04-27] MEDS ORDERED: KETOROLAC 15 MG/ML VIAL. IV ONE (20:45)
[2018-04-27] MEDS ORDERED: INFLUENZA VAX SCREEN BY RX. MC ONE (22:15)
--- NOTE | 2018-04-27 22:18 | PHYS DOC ---
Past Medical History Past Medical History: Asthma, Hypertension, [place] Past Surgical History: Other Additional Past Surgical Histo: 're-did my valves',OPEN HEART, bypass in L leg Alcohol Use: None Drug Use: None Adult General Chief Complaint Chief Complaint: CHEST PAIN HPI HPI Patient is a 62 year old [f__sex] who presents with [] Review of Systems Review of Systems Constitutional: Denies fever or chills [] Eyes: Denies change in visual acuity, redness, or eye pain [] HENT: Denies nasal congestion or sore throat [] Respiratory: Denies cough or shortness of breath [] Cardiovascular: No additional information not addressed in HPI [] GI: Denies abdominal pain, nausea, vomiting, bloody stools or diarrhea [] : Denies dysuria or hematuria [] Musculoskeletal: Denies back pain or joint pain [] Integument: Denies rash or skin lesions [] Neurologic: Denies headache, focal weakness or sensory changes [] Endocrine: Denies polyuria or polydipsia [] All other systems were reviewed and found to be within normal limits, except as documented in this note. Current Medications Current Medications Current Medications Medications (Trade) Dose Ordered Sig/Jody Start Time Stop Time Status Last Admin Dose Admin Aspirin (Children'S Aspirin) 243 mg 1X ONCE 04/27/18 16:45 04/27/18 16:46 DC 04/27/18 17:03 243 MG Nitroglycerin (Nitrostat) 0.4 mg PRN Q5MIN PRN 04/27/18 16:45 04/27/18 17:28 0.4 MG Allergies Allergies Allergies Coded Allergies Type Severity Reaction Last Updated Verified hydrocodone Allergy Intermediate Itching 10/25/16 Yes Physical Exam Physical Exam Constitutional: Well developed, well nourished, no acute distress, non-toxic appearance. [] HENT: Normocephalic, atraumatic, bilateral external ears normal, oropharynx moist, no oral exudates, nose normal. [] Eyes: PERRLA, EOMI, conjunctiva normal, no discharge. [] Neck: Normal range of motion, no tenderness, supple, no stridor. [] Cardiovascular:Heart rate regular rhythm, no murmur [] Lungs & Thorax: Bilateral breath sounds clear to auscultation [] Abdomen: Bowel sounds normal, soft, no tenderness, no masses, no pulsatile masses. [] Skin: Warm, dry, no erythema, no rash. [] Back: No tenderness, no CVA tenderness. [] Extremities: No tenderness, no cyanosis, no clubbing, ROM intact, no edema. [] Neurologic: Alert and oriented X 3, normal motor function, normal sensory function, no focal deficits noted. [] Psychologic: Affect normal, judgement normal, mood normal. [] Current Patient Data Vital Signs Vital Signs Date Time Temp Pulse Resp B/P (MAP) Pulse Ox O2 Delivery O2 Flow Rate FiO2 04/27/18 20:22 58 18 156/70 (98) 99 Room Air 04/27/18 16:30 98.6 98.6 Lab Values Laboratory Tests Test 04/27/18 17:39 04/27/18 20:24 04/27/18 20:26 White Blood Count 5.3 x10^3/uL (4.0-11.0) Red Blood Count 4.25 x10^6/uL (3.50-5.40) Hemoglobin 13.2 g/dL (12.0-15.5) Hematocrit 39.2 % (36.0-47.0) Mean Corpuscular Volume 92 fL (79-100) Mean Corpuscular Hemoglobin 31 pg (25-35) Mean Corpuscular Hemoglobin Concent 34 g/dL (31-37) Red Cell Distribution Width 13.9 % (11.5-14.5) Platelet Count 265 x10^3/uL (140-400) Neutrophils (%) (Auto) 48 % (31-73) Lymphocytes (%) (Auto) 43 % (24-48) Monocytes (%) (Auto) 7 % (0-9) Eosinophils (%) (Auto) 1 % (0-3) Basophils (%) (Auto) 1 % (0-3) Neutrophils # (Auto) 2.6 x10^3uL (1.8-7.7) Lymphocytes # (Auto) 2.3 x10^3/uL (1.0-4.8) Monocytes # (Auto) 0.4 x10^3/uL (0.0-1.1) Eosinophils # (Auto) 0.0 x10^3/uL (0.0-0.7) Basophils # (Auto) 0.0 x10^3/uL (0.0-0.2) Prothrombin Time 13.6 SEC (11.7-14.0) Prothrombin Time INR 1.1 (0.8-1.1) Sodium Level 143 mmol/L (136-145) Potassium Level 4.0 mmol/L (3.5-5.1) Chloride Level 104 mmol/L (98-107) Carbon Dioxide Level 27 mmol/L (21-32) Anion Gap 12 (6-14) Blood Urea Nitrogen 19 mg/dL (7-20) Creatinine 0.7 mg/dL (0.6-1.0) Estimated GFR (Cockcroft-Gault) 102.3 BUN/Creatinine Ratio 27 (6-20) H Glucose Level 90 mg/dL (70-99) Calcium Level 9.2 mg/dL (8.5-10.1) Total Bilirubin 0.9 mg/dL (0.2-1.0) Aspartate Amino Transferase (AST) 15 U/L (15-37) Alanine Aminotransferase (ALT) 25 U/L (14-59) Alkaline Phosphatase 80 U/L (46-116) Troponin I Quantitative < 0.017 ng/mL (0.000-0.055) < 0.017 ng/mL (0.000-0.055) Total Protein 7.3 g/dL (6.4-8.2) Albumin 4.2 g/dL (3.4-5.0) Albumin/Globulin Ratio 1.4 (1.0-1.7) POC Troponin I 0.00 ng/ml (<0.08) Laboratory Tests 04/27/18 17:39 Laboratory Tests 04/27/18 17:39 EKG EKG 1630- SR no STEMI read by Dr. Chaidez increased inverted T wave in lead V3 no STEMI read by Dr. Leary. [] Radiology/Procedures Radiology/Procedures [] Course & Med Decision Making Course & Med Decision Making Pertinent Labs and Imaging studies reviewed. (See chart for details) Chest pain Pt was given 243 mg of ASA, 3 SL 0.4 mg nitro with no reduction in chest pain. 15 mg of IV toradol was given prior to admission. Labs were unremarkable, however EKG changes were present. [address] Novak will admit the patient for further evaluation of chest pain, advised Dr. Novak of EKG changes present, second troponin is pending. [] Dragon Disclaimer Dragon Disclaimer This electronic medical record was generated, in whole or in part, using a voice recognition dictation system. Departure Departure Impression: Primary Impression: Chest pain Disposition: ADMITTED INPATIENT Admitting Physician: Negrito Novak Condition: STABLE Referrals: NEGRITO NOVAK MD (PCP) Problem Qualifiers Primary Impression: Chest pain Chest pain type: unspecified Qualified Codes: R07.9 - Chest pain, unspecified TIMBO DAVIES [employer] PROGRAM MANAGER Apr 27, 2018 22:18
[2018-04-27 23:00] VITALS: BP 152/74
[2018-04-27] MEDS ORDERED: HALO5TAB PO (23:29)
[2018-04-27] MEDS ORDERED: ATOR40TA59 PO (23:29)
[2018-04-27] MEDS ORDERED: PANT20TA2 PO (23:29)
[2018-04-27] MEDS ORDERED: TRAZ150T49 PO (23:29)
[2018-04-27] MEDS ORDERED: SENN-37 PO (23:29)
[2018-04-27] MEDS ORDERED: LOSA25TA5 PO (23:29)
[2018-04-27] MEDS ORDERED: ASPI-630 PO (23:29)
[2018-04-27] MEDS ORDERED: PROAIR HFA8.5 GM INH (23:29)
[2018-04-27] MEDS ORDERED: NITR0.4T22 SL (23:29)
[2018-04-27] MEDS ORDERED: METO25TA4 PO (23:29)
[2018-04-27] MEDS ORDERED: ACET325T9 PO (23:29)
[2018-04-28 03:00] VITALS: BP 139/63
[2018-04-28 07:00] VITALS: BP 137/70
--- NOTE | 2018-04-28 08:55 | DISCH ---
DISCHARGE INSTRUCTIONS Condition on Discharge Condition on Discharge: Stable Activity After Discharge Activity Instructions for Disc: No restrictions Diet after Discharge Diet after Discharge: Regular Follow-Up Follow up with: per her doctor JAE NOVAK MD Apr 28, 2018 08:55
--- NOTE | 2018-04-28 08:57 | PDOC ---
Provider Note Provider Note [id number] JAE NOVAK MD Apr 28, 2018 08:57
[2018-04-28] MEDS ORDERED: ACETAMINOPHEN 325 MG TABLET. PO PRN (09:00)
[2018-04-28] MEDS ORDERED: NITROGLYCERIN SUBLINGUAL 0.4 MG BOTTLE OF 25. SL PRN (09:00)
--- NOTE | 2018-04-28 09:18 | SSS ---
ADMIT DATE: 04/27/2018 HOSPITAL SUMMARY: A 62-year-old black female whose primary care is another doctor Rei over by [facility] and just left after a normal cardiac workup for chest pain. It appears her chest pain is more of a chest wall pain area below the left breast. CBC, cardiac enzymes and CMP were all normal as was the chest x-ray and she is comfortable to be discharged and followed as an outpatient. FINAL DIAGNOSIS: Noncardiac chest pain. OPERATIONS, PROCEDURES, COMPLICATIONS AND CONSULTATIONS: None. DISPOSITION: All medications remain the same as she has taken from her primary care provider. Follow up with [facility] as her cardiologists are there as well. JAE NOVAK MD DR: JOSE/nts JOB#: [id number] / [id number]
[2018-04-28] MEDS ORDERED: LOSARTAN POTASSIUM 25 MG TABLET. PO SCH (09:30)
[2018-04-28] MEDS ORDERED: SENNOSIDES/DOCUSATE 8.6/50MG TABLET. PO SCH (09:30)
[2018-04-28] MEDS ORDERED: HALOPERIDOL 5 MG TABLET. PO SCH (09:30)
[2018-04-28] MEDS ORDERED: ASPIRIN CHEWABLE 81 MG TABLET. PO SCH (09:30)
[2018-04-28] MEDS: METOPROLOL TART IMMED RELEASE 25 MG TABLET. PO SCH ×3 (09:30→11:04)
[2018-04-28] MEDS ORDERED: PANTOPRAZOLE 40 MG TABLET.DR. PO SCH (09:30)
[2018-04-28 10:01] LABS: CHOLESTEROL/HDL RATIO 2.3
[2018-04-28 11:00] VITALS: BP 136/69
[2018-04-28 11:04] VITALS: BP 137/70
[2018-04-28] MEDS ORDERED: traZODone 50 MG TABLET. PO SCH (21:00)
[2018-04-28] MEDS ORDERED: ATORVASTATIN CALCIUM 40 MG TABLET. PO SCH (21:00)
== END 2018-04-28 14:15 | disposition home or self-care (01) | DRG 313 ==
LOC: ER 16:23 → 5 SOUTH 20:42
PROVIDERS: ADMIT Family Medicine; ATTEND Family Medicine
DX: R07.89 Other chest pain (principal); I10 Essential (primary) hypertension; J45.909 Unspecified asthma, uncomplicated; I25.2 Old myocardial infarction; Z79.899 Other long term (current) drug therapy; Z88.8 Allergy status to other drugs, medicaments and biological substances
CPT/HCPCS: 36415; 71046; 80053; 80061; 84443; 84484; 85025; 85610; 90471; 90756; 93005; J1885; Q2035

== ENCOUNTER 2018-05-14 17:10 | Emergency (ER) | payer OTHER ==
[~2018-05-14] VITALS: Ht 157.5 cm; Wt 54.4 kg
[~2018-05-14 17:10] MED LIST changes: +ACET325T9 PO; +ASPI-630 PO; +ATOR40TA59 PO; +HALO5TAB PO; +LOSA25TA5 PO; +METO25TA4 PO; +NITR0.4T22 SL; +PANT20TA2 PO; +SENN-37 PO; +TRAZ150T49 PO
[2018-05-14] MEDS ORDERED: ASPIRIN CHEWABLE 81 MG TABLET. PO ONE (17:45)
[2018-05-14] MEDS ORDERED: NITROGLYCERIN OINT 1 GM PACKET. TP ONE (17:45)
--- NOTE | 2018-05-14 17:45 | PHYS DOC ---
Past Medical History Past Medical History: Asthma, CAD, High Cholesterol, Hypertension, CT Past Surgical History: Other Additional Past Surgical Histo: 're-did my valves',OPEN HEART, bypass in L leg Additional Information: quit smoking 6 months ago Alcohol Use: None Drug Use: None Adult General Chief Complaint Chief Complaint: CHEST PAIN HPI HPI 62-year-old female presents to ER with complaints of left side chest pain just under her left breast which started 2 days ago. Patient reports she was not active when pain started up and pain has been constant. Patient currently rates pain at 7 out of 10 sharp and tight in nature. Patient denies any shortness of air, abdominal pain, nausea or vomiting, fever, or cough. Patient denies swelling in her extremities. Patient reports pain does increase when she rests the pain eases up. Patient denies any recent travel. Patient reports she has been out of her medications for the past 2 days which include cholesterol and hypertension medicine. Patient reports she has been out of her 81 mg aspirin and has not taken that in the past couple of days as well. Patient reports she quit smoking approximately 6 months ago. Patient denies any recent fall or injury. Review of Systems Review of Systems Constitutional: Denies fever or chills [] Eyes: Denies change in visual acuity, redness, or eye pain [] HENT: Denies nasal congestion or sore throat [] Respiratory: Denies cough or shortness of breath [] Cardiovascular: No additional information not addressed in HPI [] GI: Denies abdominal pain, nausea, vomiting, bloody stools or diarrhea [] : Denies dysuria or hematuria [] Musculoskeletal: Denies back pain or joint pain [] Integument: Denies rash or skin lesions [] Neurologic: Denies headache, focal weakness or sensory changes [] Endocrine: Denies polyuria or polydipsia [] All other systems were reviewed and found to be within normal limits, except as documented in this note. Current Medications Current Medications Current Medications Medications (Trade) Dose Ordered Sig/Jody Start Time Stop Time Status Last Admin Dose Admin Aspirin (Children'S Aspirin) 324 mg 1X ONCE 05/14/18 17:45 05/14/18 17:46 DC 05/14/18 17:58 324 MG Ibuprofen (Motrin) 600 mg 1X ONCE 05/14/18 19:45 05/14/18 19:46 DC 05/14/18 19:53 600 MG Nitroglycerin (Nitro-Bid Oint) 0.5 inch 1X ONCE 05/14/18 17:45 05/14/18 17:46 DC 05/14/18 17:59 0.5 INCH Allergies Allergies Allergies Coded Allergies Type Severity Reaction Last Updated Verified hydrocodone Allergy Intermediate Itching 10/25/16 Yes Physical Exam Physical Exam Constitutional: Well developed, well nourished, no acute distress, non-toxic appearance. [] HENT: Normocephalic, atraumatic, bilateral external ears normal, oropharynx moist, no oral exudates, nose normal. [] Eyes: PERRLA, EOMI, conjunctiva normal, no discharge. [] Neck: Normal range of motion, no tenderness, supple, no stridor. [] Cardiovascular:Heart rate regular rhythm, no murmur [] Lungs & Thorax: Bilateral breath sounds clear to auscultation [] Abdomen: Bowel sounds normal, soft, no tenderness, no masses, no pulsatile masses. [] Skin: Warm, dry, no erythema, no rash. [] Back: No tenderness, no CVA tenderness. [] Extremities: No tenderness, no cyanosis, no clubbing, ROM intact, no edema. [] Neurologic: Alert and oriented X 3, normal motor function, normal sensory function, no focal deficits noted. [] Psychologic: Affect normal, judgement normal, mood normal. [] Current Patient Data Vital Signs Vital Signs Date Time Temp Pulse Resp B/P (MAP) Pulse Ox O2 Delivery O2 Flow Rate FiO2 05/14/18 18:30 58 157/86 (109) 98 Room Air 05/14/18 17:15 98.2 20 98.2 Lab Values Laboratory Tests Test 05/14/18 17:25 05/14/18 19:38 White Blood Count 5.4 x10^3/uL (4.0-11.0) Red Blood Count 3.98 x10^6/uL (3.50-5.40) Hemoglobin 12.2 g/dL (12.0-15.5) Hematocrit 36.5 % (36.0-47.0) Mean Corpuscular Volume 92 fL (79-100) Mean Corpuscular Hemoglobin 31 pg (25-35) Mean Corpuscular Hemoglobin Concent 33 g/dL (31-37) Red Cell Distribution Width 14.0 % (11.5-14.5) Platelet Count 268 x10^3/uL (140-400) Neutrophils (%) (Auto) 39 % (31-73) Lymphocytes (%) (Auto) 50 % (24-48) H Monocytes (%) (Auto) 9 % (0-9) Eosinophils (%) (Auto) 1 % (0-3) Basophils (%) (Auto) 1 % (0-3) Neutrophils # (Auto) 2.1 x10^3uL (1.8-7.7) Lymphocytes # (Auto) 2.7 x10^3/uL (1.0-4.8) Monocytes # (Auto) 0.5 x10^3/uL (0.0-1.1) Eosinophils # (Auto) 0.1 x10^3/uL (0.0-0.7) Basophils # (Auto) 0.0 x10^3/uL (0.0-0.2) D-Dimer (Claudia) < 0.27 ug/mlFEU Sodium Level 143 mmol/L (136-145) Potassium Level 3.7 mmol/L (3.5-5.1) Chloride Level 104 mmol/L (98-107) Carbon Dioxide Level 32 mmol/L (21-32) Anion Gap 7 (6-14) Blood Urea Nitrogen 11 mg/dL (7-20) Creatinine 0.7 mg/dL (0.6-1.0) Estimated GFR (Cockcroft-Gault) 102.3 BUN/Creatinine Ratio 16 (6-20) Glucose Level 82 mg/dL (70-99) Calcium Level 9.2 mg/dL (8.5-10.1) Total Bilirubin 0.5 mg/dL (0.2-1.0) Aspartate Amino Transferase (AST) 14 U/L (15-37) L Alanine Aminotransferase (ALT) 23 U/L (14-59) Alkaline Phosphatase 70 U/L (46-116) Troponin I Quantitative < 0.017 ng/mL (0.000-0.055) < 0.017 ng/mL (0.000-0.055) Total Protein 7.3 g/dL (6.4-8.2) Albumin 3.7 g/dL (3.4-5.0) Albumin/Globulin Ratio 1.0 (1.0-1.7) Lipase 148 U/L (73-393) Laboratory Tests 05/14/18 17:25 Laboratory Tests 05/14/18 17:25 EKG EKG [] Radiology/Procedures Radiology/Procedures []PROCEDURE: CHEST AP ONLY Single view chest 05/14/2018 CLINICAL INDICATION: Left-sided chest pain. COMPARISON: Chest 04/27/2018 FINDINGS: Prior median sternotomy and CABG. Cardiac and mediastinal silhouettes unremarkable. No pleural effusion, pneumothorax or focal consolidation. IMPRESSION: No acute cardiopulmonary abnormality. Electronically signed by: Jorge Vazquez MD (05/14/2018 6:10 PM) [facility] DICTATED and SIGNED BY: JORGE VAZQUEZ MD DATE: 05/14/181807 Course & Med Decision Making Course & Med Decision Making Pertinent Labs and Imaging studies reviewed. (See chart for details) 1849: Discussed test results with pt with EKG having no acute ST elevation or STEMI and troponin <0.017; DDimer <0.27; chest xray with no acute findings. Discussed admission for further evaluation and pt is preferring to be discharged home. With her preference on being discharged home will repeat troponin while in the ER to obtain 2nd result to further rule out ACS. Patient reports she has had no change in left side chest pain while in the ER after Nitropaste was applied. RN reports pt after this provider left room preferred to be admitted although initially wanting to be discharged. Call placed to Dr. Novak her primary care physician and had return call from Dr. moreno who is on-call. Education's case and plan of care and with patient having ongoing chest pain 2 days with troponin <0.017 she is wanting 2nd troponin to be obtained and if NL then discussion will be had with pt regarding d/c home with outpt f/u w/cardiology and PCP for further eval/care. Dr. Moreno was accepting of admission but wanted further discussion with pt. This phone call was discussed with patient and following discussion regarding admission versus home discharge patient states she is comfortable if second troponin is normal limits she with again prefer home discharge with plans to follow up with tooling mechanic office tomorrow to discuss sooner appointment as she is scheduled in 2 weeks for her eval. 2027: Pt's 2nd troponin is <0.017- she is in no visible distress when this provider enters room for reevaluation area. Patient has equal nonlabored respirations and remains nontoxic in appearance. Patient reports no change or worsening of left-sided chest pain. Patient has been provided with dose of ibuprofen and with negative troponin discussed plans for home discharge with patient to follow-up with her tooling mechanic and primary care physician tomorrow. Education provided on signs and symptoms to return to ER for. Discharge instructions were discussed. Patient instructed on [id number] Tylenol and/ or ibuprofen as needed for pain relief as directed on container. Pt's case and plan of care was discussed with Dr. Leary. Terrance Disclaimer Terrance Disclaimer This electronic medical record was generated, in whole or in part, using a voice recognition dictation system. Departure Departure Impression: Primary Impression: Chest pain Disposition: 01 HOME, SELF-CARE Condition: STABLE Referrals: JAE NOVAK MD (PCP) Patient Instructions: Chest Pain (Nonspecific) Additional Instructions: As discussed you had to troponin levels obtained while in the ER which were both <0.017- as discussed you should call your tooling mechanic and primary doctor tomorrow for follow-up appointment. Tylenol and/or ibuprofen as needed for pain as directed on container. You need to get she reports daily medications refilled and continue on those as previously prescribed. CASEY GRIFFIN APRN May 14, 2018 17:45
[2018-05-14 17:50] LABS: BASO % 1 % (0-3); EOS # 0.1 x10^3/uL (0.0-0.7); EOS % 1 % (0-3); HEMATOCRIT 36.5 % (36.0-47.0); HEMOGLOBIN 12.2 g/dL (12.0-15.5); LYMPH # 2.7 x10^3/uL (1.0-4.8); LYMPH % 50 % (24-48); MEAN CORPUSCULAR HEMOGLOBIN 31 pg (25-35); MEAN CORPUSCULAR HGB CONC 33 g/dL (31-37); MEAN CORPUSCULAR VOLUME 92 fL (79-100); MONO # 0.5 x10^3/uL (0.0-1.1); MONO % 9 % (0-9); NEUT # 2.1 x10^3uL (1.8-7.7); NEUT % 39 % (31-73); PLATELET COUNT 268 x10^3/uL (140-400); RED BLOOD COUNT 3.98 x10^6/uL (3.50-5.40); WHITE BLOOD COUNT 5.4 x10^3/uL (4.0-11.0)
[2018-05-14 18:01] LABS: CALCIUM 9.2 mg/dL (8.5-10.1); CREATININE 0.7 mg/dL (0.6-1.0); GFR 102.3; POTASSIUM 3.7 mmol/L (3.5-5.1)
[2018-05-14 18:07] LABS: ALBUMIN 3.7 g/dL (3.4-5.0); TOTAL BILIRUBIN 0.5 mg/dL (0.2-1.0); TOTAL PROTEIN 7.3 g/dL (6.4-8.2)
--- NOTE | 2018-05-14 18:13 | RAD ---
Single view chest 05/14/2018 CLINICAL INDICATION: Left-sided chest pain. COMPARISON: Chest 04/27/2018 FINDINGS: Prior median sternotomy and CABG. Cardiac and mediastinal silhouettes unremarkable. No pleural effusion, pneumothorax or focal consolidation. IMPRESSION: No acute cardiopulmonary abnormality. Electronically signed by: Stan Vazquez MD (05/14/2018 6:10 PM) [facility]
[2018-05-14] MEDS ORDERED: IBUPROFEN 200 MG TABLET. PO ONE (19:45)
[2018-05-14 20:10] VITALS: BP 165/77
--- NOTE | 2018-05-15 01:00 | EKG ---
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
== END 2018-05-14 21:00 | disposition home or self-care (01) ==
LOC: ER 17:10
DX: R07.89 Other chest pain (principal); I10 Essential (primary) hypertension; E78.00 Pure hypercholesterolemia, unspecified; J45.909 Unspecified asthma, uncomplicated; I25.10 Atherosclerotic heart disease of native coronary artery without angina pectoris; I25.2 Old myocardial infarction; Z87.891 Personal history of nicotine dependence; Z95.1 Presence of aortocoronary bypass graft; Z88.5 Allergy status to narcotic agent
CPT/HCPCS: 36415; 71045; 80053; 83690; 84484; 85025; 85379; 93005; 99285-25

== ENCOUNTER 2018-08-28 19:22 | Emergency (ER) | payer OTHER ==
[~2018-08-28] VITALS: Ht 157.5 cm; Wt 56.7 kg
[~2018-08-28 19:22] MED LIST changes: +ALBU2.5V8 INH; -LOSA25TA5 PO; +LOSA25TA54 PO; -PROAIR HFA8.5 GM INH
[2018-08-28] MEDS ORDERED: ASPIRIN CHEWABLE 81 MG TABLET. PO ONE (19:30)
[2018-08-28] MEDS ORDERED: NITROGLYCERIN SUBLINGUAL 0.4 MG BOTTLE OF 25. SL PRN (19:30)
--- NOTE | 2018-08-28 19:45 | PHYS DOC ---
Past Medical History Past Medical History: Asthma, CAD, High Cholesterol, Hypertension, [place] Past Surgical History: Other Additional Past Surgical Histo: 're-did my valves',OPEN HEART, bypass in L leg Alcohol Use: None Drug Use: None Adult General Chief Complaint Chief Complaint: CHEST PAIN [facility] HPI Patient is a 63 year old female who presents with chest pain. Patient had onset of pain symptoms around 9:00 this morning. She was at rest when the pain started. She describes the pain over the lower portion of the left side of her chest which has been constant throughout the day. The patient reports that she has these symptoms on a chronic basis but they normally do not last this long. Today, she became alarmed because the symptoms lasted longer than normal. Patient does state she has a prior history of some heart problem but she is unable to say exactly what that is. She reports that she was seen at [facility]. She denies that she has any stents or has undergone any other intervention. The pain is nonradiating. There are no aggravating or alleviating factors. She does not have shortness of breath. She took a nitroglycerin without any relief. She states this pain feels different from prior pain related to her heart. No indigestion. No recent fever, chills, cough. Review of Systems Review of Systems Constitutional: Denies fever or chills Eyes: Denies change in visual acuity HENT: Denies nasal congestion Respiratory: Denies cough or shortness of breath Cardiovascular: No additional information not addressed in HPI GI: Denies abdominal pain : Denies dysuria Musculoskeletal: Denies back pain Integument: Denies rash or skin lesions Neurologic: Denies headache Endocrine: Denies polyuria All other systems were reviewed and found to be within normal limits, except as documented in this note. Current Medications Current Medications Current Medications Medications (Trade) Dose Ordered Sig/Jody Start Time Stop Time Status Last Admin Dose Admin Aspirin (Children'S Aspirin) 324 mg 1X ONCE 08/28/18 19:30 08/28/18 19:33 DC 08/28/18 19:39 324 MG Morphine Sulfate (Morphine Sulfate) 6 mg 1X ONCE 08/28/18 22:30 08/28/18 22:31 DC 08/28/18 23:10 6 MG Nitroglycerin (Nitrostat) 0.4 mg PRN Q5MIN PRN 08/28/18 19:30 08/28/18 19:40 0.4 MG Allergies Allergies Allergies Coded Allergies Type Severity Reaction Last Updated Verified hydrocodone Allergy Intermediate Itching 10/25/16 Yes Physical Exam Physical Exam Constitutional: Well developed, well nourished, no acute distress, non-toxic appearance HENT: Normocephalic, atraumatic, bilateral external ears normal, oropharynx moist Eyes: PERRLA, EOMI, conjunctiva normal Neck: Normal range of motion Cardiovascular:Heart rate regular rhythm, no murmur Lungs & Thorax: Bilateral breath sounds clear to auscultation Abdomen: Bowel sounds normal, soft, no tenderness Skin: Warm, dry, no erythema, no rash Extremities: No tenderness, no edema Neurologic: Alert and oriented X 3 Psychologic: Affect normal Current Patient Data Vital Signs Vital Signs Date Time Temp Pulse Resp B/P (MAP) Pulse Ox O2 Delivery O2 Flow Rate FiO2 08/28/18 23:10 18 98 08/28/18 20:19 Room Air 08/28/18 19:40 60 150/101 08/28/18 19:33 98.3 98.3 Lab Values Laboratory Tests Test 08/28/18 19:45 08/28/18 20:00 08/28/18 23:04 White Blood Count 5.7 x10^3/uL (4.0-11.0) Red Blood Count 3.96 x10^6/uL (3.50-5.40) Hemoglobin 12.3 g/dL (12.0-15.5) Hematocrit 37.4 % (36.0-47.0) Mean Corpuscular Volume 94 fL (79-100) Mean Corpuscular Hemoglobin 31 pg (25-35) Mean Corpuscular Hemoglobin Concent 33 g/dL (31-37) Red Cell Distribution Width 15.7 % (11.5-14.5) H Platelet Count 289 x10^3/uL (140-400) Neutrophils (%) (Auto) 34 % (31-73) Lymphocytes (%) (Auto) 56 % (24-48) H Monocytes (%) (Auto) 8 % (0-9) Eosinophils (%) (Auto) 2 % (0-3) Basophils (%) (Auto) 1 % (0-3) Neutrophils # (Auto) 1.9 x10^3uL (1.8-7.7) Lymphocytes # (Auto) 3.2 x10^3/uL (1.0-4.8) Monocytes # (Auto) 0.5 x10^3/uL (0.0-1.1) Eosinophils # (Auto) 0.1 x10^3/uL (0.0-0.7) Basophils # (Auto) 0.1 x10^3/uL (0.0-0.2) Prothrombin Time 12.5 SEC (11.7-14.0) Prothrombin Time INR 1.0 (0.8-1.1) PTT 30 SEC (24-38) D-Dimer (Claudia) < 0.27 ug/mlFEU Sodium Level 141 mmol/L (136-145) Potassium Level 4.8 mmol/L (3.5-5.1) Chloride Level 104 mmol/L (98-107) Carbon Dioxide Level 30 mmol/L (21-32) Anion Gap 7 (6-14) Blood Urea Nitrogen 21 mg/dL (7-20) H Creatinine 0.5 mg/dL (0.6-1.0) L Estimated GFR (Cockcroft-Gault) 150.3 Glucose Level 89 mg/dL (70-99) Calcium Level 8.9 mg/dL (8.5-10.1) Troponin I Quantitative < 0.017 ng/mL (0.000-0.055) < 0.017 ng/mL (0.000-0.055) SD-Fni-F-Type Natriuretic Peptide 533 pg/mL (0-124) H Urine Collection Type Unknown Urine Color Yellow Urine Clarity Clear Urine pH 6.0 Urine Specific [place] >=1.030 Urine Protein Negative mg/dL (NEG-TRACE) Urine Glucose (UA) Negative mg/dL (NEG) Urine Ketones (Stick) Negative mg/dL (NEG) Urine Blood Negative (NEG) Urine Nitrite Negative (NEG) Urine Bilirubin Negative (NEG) Urine Urobilinogen Dipstick 0.2 mg/dL (0.2 mg/dL) Urine Leukocyte Esterase Negative (NEG) Urine RBC 0 /HPF (0-2) Urine WBC 0 /HPF (0-4) Urine Squamous Epithelial Cells Few /LPF Urine Bacteria 0 /HPF (0-FEW) Urine Mucus Slight /LPF Urine Opiates Screen Neg (NEG) Urine Methadone Screen Neg (NEG) Urine Barbiturates Neg (NEG) Urine Phencyclidine Screen Neg (NEG) Urine Amphetamine/Methamphetamine Neg (NEG) Urine Benzodiazepines Screen Neg (NEG) Urine Cocaine Screen Neg (NEG) Urine Cannabinoids Screen Neg (NEG) Urine Ethyl Alcohol Neg (NEG) Laboratory Tests 08/28/18 19:45 Laboratory Tests 08/28/18 19:45 EKG EKG No STEMI Interpretation Time: 19:30 Radiology/Procedures Radiology/Procedures CXR: No acute findings. Course & Med Decision Making Course & Med Decision Making Pertinent Labs and Imaging studies reviewed. (See chart for details) 19:35: Patient is seen and examined. She has an EKG that does not reveal any acute ST changes concerning for ischemia. Nitroglycerin is not improving her pain symptoms. Standard ACS workup is ordered and morphine is ordered for pain. 20:50: Patient currently feeling improved. Will keep in the ER for a 3 hour troponin. 22:00: Pain initially improved but has returned. Patient is ordered to have an additional dose of pain medications.\ 23:50: Second troponin is returned and is not elevated. The patient does have flipped T waves in some of the V leads on her EKG except these are unchanged from prior EKGs. No dynamic changes are seen today. Patient does not have heart score greater than 3. Plan is for discharge home. Patient is agreeable. She is given some pain medication use at home and advised to follow-up with Dr. Minaya or return to the ER for any new or worsening symptoms. She is accompanied by her this evening who is driving her home. Dragon Disclaimer Dragon Disclaimer This electronic medical record was generated, in whole or in part, using a voice recognition dictation system. Departure Departure Disposition: 01 HOME, SELF-CARE Condition: GOOD Referrals: JAE MINAYA MD (PCP) Scripts Oxycodone/Apap 5-325 (PERCOCET 5-325 MG TABLET ) 1 Each Tablet 1-2 EACH PO PRN TID PRN for SEVERE PAIN, #15 TAB pain Prov: LIANA NOBLE DO 08/28/18 Ibuprofen (IBUPROFEN) 600 Mg Tablet 600 MG PO PRN Q6HRS PRN for PAIN, #20 TAB take with food or milk Prov: LIANA NOBLE DO 08/28/18 LIANA NOBLE DO Aug 28, 2018 19:45
[2018-08-28 19:55] LABS: BASO # 0.1 x10^3/uL (0.0-0.2); BASO % 1 % (0-3); EOS # 0.1 x10^3/uL (0.0-0.7); EOS % 2 % (0-3); HEMATOCRIT 37.4 % (36.0-47.0); HEMOGLOBIN 12.3 g/dL (12.0-15.5); LYMPH # 3.2 x10^3/uL (1.0-4.8); LYMPH % 56 % (24-48); MEAN CORPUSCULAR HEMOGLOBIN 31 pg (25-35); MEAN CORPUSCULAR HGB CONC 33 g/dL (31-37); MEAN CORPUSCULAR VOLUME 94 fL (79-100); MONO # 0.5 x10^3/uL (0.0-1.1); MONO % 8 % (0-9); NEUT # 1.9 x10^3uL (1.8-7.7); NEUT % 34 % (31-73); PLATELET COUNT 289 x10^3/uL (140-400); RED BLOOD COUNT 3.96 x10^6/uL (3.50-5.40); RED CELL DISTRIBUTION WIDTH 15.7 % (11.5-14.5); WHITE BLOOD COUNT 5.7 x10^3/uL (4.0-11.0)
[2018-08-28] MEDS ORDERED: MORPHINE SULFATE 4 MG/ML VIAL. IV ONE ×2 (20:00→22:30)
[2018-08-28 20:04] LABS: PROTHROMBIN TIME PATIENT 12.5 SEC (11.7-14.0)
[2018-08-28 20:07] LABS: BILIRUBIN,URINE NEGATIVE (NEG); CLARITY,URINE CLEAR; COLOR,URINE YELLOW; NITRITE,URINE NEGATIVE (NEG); PROTEIN,URINE NEGATIVE (NEG-TRACE); UROBILINOGEN,URINE 0.2 mg/dL (0.2 mg/dL)
[2018-08-28 20:08] LABS: CALCIUM 8.9 mg/dL (8.5-10.1); CREATININE 0.5 mg/dL (0.6-1.0); GFR 150.3; POTASSIUM 4.8 mmol/L (3.5-5.1)
[2018-08-28 20:14] LABS: BACTERIA,URINE 0 /HPF (0-FEW); BARBITURATES NEG (NEG); BENZODIAZEPINES NEG (NEG); CANNABINOIDS NEG (NEG); COCAINE NEG (NEG); METHADONE NEG (NEG); OPIATES NEG (NEG); PHENCYCLIDINE NEG (NEG); RBC,URINE 0 /HPF (0-2); SQUAMOUS EPITHELIAL CELL,UR FEW /LPF; WBC,URINE 0 /HPF (0-4)
[2018-08-28 20:15] LABS: AMPHETAMINE/METHAMPHETAMINE NEG (NEG)
[2018-08-28 23:30] VITALS: BP 141/73
[2018-08-28] MEDS ORDERED: IBUP-1007 PO (23:42)
[2018-08-28] MEDS ORDERED: OXYC1TAB15 PO (23:42)
--- NOTE | 2018-08-28 23:46 | RAD ---
Examination: PORTABLE CHEST 1V History: LEFT SIDED CHEST PAIN X1 DAY Comparison/Correlation: 05/14/2018 portable chest x-ray exam Findings: Portable upright frontal view of the chest was obtained. Sternal wires and mediastinal clips are present. Heart size and pulmonary vasculature are normal. No infiltrate or effusion. Surgical clips at the epigastric level is present. Impression: No active disease. Electronically signed by: Massimo Colin MD (08/28/2018 11:41 PM) [facility]
--- NOTE | 2018-08-29 05:12 | EKG ---
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
--- NOTE | 2018-08-29 08:30 | EKG ---
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
== END 2018-08-28 23:53 | disposition home or self-care (01) ==
LOC: ER 19:22
DX: R07.89 Other chest pain (principal); E78.00 Pure hypercholesterolemia, unspecified; J45.909 Unspecified asthma, uncomplicated; I10 Essential (primary) hypertension; I25.10 Atherosclerotic heart disease of native coronary artery without angina pectoris; I25.2 Old myocardial infarction; Z88.5 Allergy status to narcotic agent
CPT/HCPCS: 36415; 71045; 80048; 80307; 81001; 83880; 84484; 85025; 85379; 85610; 85730; 93005; 96374; 96376; 99284; J2270

== ENCOUNTER 2018-09-25 18:06 | Emergency (ER) | payer OTHER ==
[~2018-09-25] VITALS: Ht 157.5 cm; Wt 61.2 kg
[~2018-09-25 18:06] MED LIST changes: +IBUP-1007 PO; +OXYC1TAB15 PO
[2018-09-25] MEDS ORDERED: ASPIRIN CHEWABLE 81 MG TABLET. PO ONE (18:45)
--- NOTE | 2018-09-25 18:52 | PHYS DOC ---
Past Medical History Past Medical History: Asthma, CAD, High Cholesterol, Hypertension, [place] Past Surgical History: Other Additional Past Surgical Histo: 're-did my valves',OPEN HEART, bypass in L leg Smoking: Less than 1pk/day Alcohol Use: None Drug Use: None Adult General Chief Complaint Chief Complaint: CHEST PAIN HPI HPI Patient is a 63 year old female who presents with reproducible sharp stabbing chest wall pain that began at [id number] today while at rest. Currently rates pain at 8/10. No relief with nitro paste x1 and Tylenol before presenting to ED. No identifiable precipitating or aggravating factors. Denies shortness of breath, nausea, vomiting, headache, cough or recent illness. [] Review of Systems Review of Systems Constitutional: Denies fever or chills [] Eyes: Denies change in visual acuity, redness, or eye pain [] HENT: Denies nasal congestion or sore throat [] Respiratory: Denies cough or shortness of breath [] Cardiovascular: No additional information not addressed in HPI [] GI: Denies abdominal pain, nausea, vomiting, bloody stools or diarrhea [] : Denies dysuria or hematuria [] Musculoskeletal: Denies back pain or joint pain [] Integument: Denies rash or skin lesions [] Neurologic: Denies headache, focal weakness or sensory changes [] Endocrine: Denies polyuria or polydipsia [] All other systems were reviewed and found to be within normal limits, except as documented in this note. Current Medications Current Medications Current Medications Medications (Trade) Dose Ordered Sig/Jody Start Time Stop Time Status Last Admin Dose Admin Aspirin (Children'S Aspirin) 324 mg 1X ONCE 09/25/18 18:45 09/25/18 18:46 DC 09/25/18 19:13 324 MG Ketorolac Tromethamine (Toradol 15mg Vial) 15 mg 1X ONCE 09/25/18 19:45 09/25/18 19:46 DC 09/25/18 20:14 15 MG Allergies Allergies Allergies Coded Allergies Type Severity Reaction Last Updated Verified hydrocodone Allergy Intermediate Itching 10/25/16 Yes Physical Exam Physical Exam Constitutional: Well developed, well nourished, no acute distress, non-toxic appearance. [] HENT: Normocephalic, atraumatic, bilateral external ears normal, oropharynx moist, no oral exudates, nose normal. [] Eyes: PERRLA, EOMI, conjunctiva normal, no discharge. [] Neck: Normal range of motion, no tenderness, supple, no stridor. [] Cardiovascular:Heart rate regular rhythm, no murmur [] Lungs & Thorax: Bilateral breath sounds clear to auscultation, chest wall tenderness to palpation inferior to left breast. [] Abdomen: Bowel sounds normal, soft, no tenderness, no masses, no pulsatile masses. [] Skin: Warm, dry, no erythema, no rash. [] Back: No tenderness, no CVA tenderness. [] Extremities: No tenderness, no cyanosis, no clubbing, ROM intact, no edema. [] Neurologic: Alert and oriented X 3, normal motor function, normal sensory function, no focal deficits noted. [] Psychologic: Affect normal, judgement normal, mood normal, mild psychomotor agitation. [] Current Patient Data Vital Signs Vital Signs Date Time Temp Pulse Resp B/P (MAP) Pulse Ox O2 Delivery O2 Flow Rate FiO2 09/25/18 21:45 64 20 179/86 (117) 99 Room Air 09/25/18 18:55 98.2 98.2 Lab Values Laboratory Tests Test 09/25/18 19:03 09/25/18 21:42 White Blood Count 5.3 x10^3/uL (4.0-11.0) Red Blood Count 3.93 x10^6/uL (3.50-5.40) Hemoglobin 12.0 g/dL (12.0-15.5) Hematocrit 36.5 % (36.0-47.0) Mean Corpuscular Volume 93 fL (79-100) Mean Corpuscular Hemoglobin 31 pg (25-35) Mean Corpuscular Hemoglobin Concent 33 g/dL (31-37) Red Cell Distribution Width 14.7 % (11.5-14.5) H Platelet Count 288 x10^3/uL (140-400) Neutrophils (%) (Auto) 40 % (31-73) Lymphocytes (%) (Auto) 50 % (24-48) H Monocytes (%) (Auto) 7 % (0-9) Eosinophils (%) (Auto) 1 % (0-3) Basophils (%) (Auto) 1 % (0-3) Neutrophils # (Auto) 2.1 x10^3uL (1.8-7.7) Lymphocytes # (Auto) 2.6 x10^3/uL (1.0-4.8) Monocytes # (Auto) 0.4 x10^3/uL (0.0-1.1) Eosinophils # (Auto) 0.1 x10^3/uL (0.0-0.7) Basophils # (Auto) 0.1 x10^3/uL (0.0-0.2) Sodium Level 143 mmol/L (136-145) Potassium Level 4.4 mmol/L (3.5-5.1) Chloride Level 103 mmol/L (98-107) Carbon Dioxide Level 31 mmol/L (21-32) Anion Gap 9 (6-14) Blood Urea Nitrogen 19 mg/dL (7-20) Creatinine 0.8 mg/dL (0.6-1.0) Estimated GFR (Cockcroft-Gault) 87.4 BUN/Creatinine Ratio 24 (6-20) H Glucose Level 99 mg/dL (70-99) Calcium Level 9.5 mg/dL (8.5-10.1) Total Bilirubin 0.4 mg/dL (0.2-1.0) Aspartate Amino Transferase (AST) 18 U/L (15-37) Alanine Aminotransferase (ALT) 17 U/L (14-59) Alkaline Phosphatase 68 U/L (46-116) Troponin I Quantitative < 0.017 ng/mL (0.000-0.055) < 0.017 ng/mL (0.000-0.055) Total Protein 7.4 g/dL (6.4-8.2) Albumin 3.8 g/dL (3.4-5.0) Albumin/Globulin Ratio 1.1 (1.0-1.7) Laboratory Tests 09/25/18 19:03 Laboratory Tests 09/25/18 19:03 EKG EKG NSR, rate 57, TWI PRESENT BUT SIMILAR TO PRIOR EKG DATED 08/28/18 Radiology/Procedures Radiology/Procedures [] Course & Med Decision Making Course & Med Decision Making Pt is a 63 year old female with past medical history of [place] ( 1997), hypertension, hyperlipidemia, and a valve replacement presents with reproducible left-sided chest wall pain. Most consistent with MSK related pain. Pertinent Labs and Imaging studies reviewed. (See chart for details) Plan EKG, no acute changes CXR, negative CBC, BMP \ MULTIPLE PRIOR PRESENTATIONS FOR SAME PT REPORTS RECENT NEG STRESS TEST AT [facility] A FEW MONTHS AGO SHE TELLS ME TROP NEG X TWO FEELS BETTER WITH TORADOL, seems appropriate for d/c home. does not sound like pe or dissection [] Dragon Disclaimer Dragon Disclaimer This electronic medical record was generated, in whole or in part, using a voice recognition dictation system. Departure Departure Impression: Primary Impression: Chest pain Disposition: HOME, SELF-CARE Condition: STABLE Referrals: JAE NOVAK MD (PCP) WIL MUÑIZ MD Sep 25, 2018 18:52
[2018-09-25 19:20] LABS: BASO # 0.1 x10^3/uL (0.0-0.2); BASO % 1 % (0-3); EOS # 0.1 x10^3/uL (0.0-0.7); EOS % 1 % (0-3); HEMATOCRIT 36.5 % (36.0-47.0); LYMPH # 2.6 x10^3/uL (1.0-4.8); LYMPH % 50 % (24-48); MEAN CORPUSCULAR HEMOGLOBIN 31 pg (25-35); MEAN CORPUSCULAR HGB CONC 33 g/dL (31-37); MEAN CORPUSCULAR VOLUME 93 fL (79-100); MONO # 0.4 x10^3/uL (0.0-1.1); MONO % 7 % (0-9); NEUT # 2.1 x10^3uL (1.8-7.7); NEUT % 40 % (31-73); PLATELET COUNT 288 x10^3/uL (140-400); RED BLOOD COUNT 3.93 x10^6/uL (3.50-5.40); RED CELL DISTRIBUTION WIDTH 14.7 % (11.5-14.5); WHITE BLOOD COUNT 5.3 x10^3/uL (4.0-11.0)
[2018-09-25 19:27] LABS: CALCIUM 9.5 mg/dL (8.5-10.1); CREATININE 0.8 mg/dL (0.6-1.0); GFR 87.4; POTASSIUM 4.4 mmol/L (3.5-5.1)
[2018-09-25 19:33] LABS: ALBUMIN 3.8 g/dL (3.4-5.0); ALBUMIN/GLOBULIN RATIO 1.1 (1.0-1.7); TOTAL BILIRUBIN 0.4 mg/dL (0.2-1.0); TOTAL PROTEIN 7.4 g/dL (6.4-8.2)
[2018-09-25] MEDS ORDERED: KETOROLAC 15 MG/ML VIAL. IV ONE (19:45)
[2018-09-25 21:45] VITALS: BP 179/86
--- NOTE | 2018-09-25 22:59 | RAD ---
AP portable chest radiograph 09/25/2018 Clinical History: Left-sided chest pain. Asthma. An AP erect portable digital radiograph of the chest was obtained. Comparison study is dated 08/28/2018. The patient is post median sternotomy. The cardiac silhouette is borderline enlarged. The thoracic aorta is tortuous. Atherosclerotic calcification of the thoracic aorta is seen. No acute pulmonary infiltrate is seen. No pleural effusion or pneumothorax is noted. Degenerative changes are seen involving the thoracic spine and both shoulders. Impression: No acute abnormality is seen. Electronically signed by: Bladimir Escudero MD (09/25/2018 10:56 PM) [facility]
--- NOTE | 2018-09-26 08:04 | EKG ---
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
== END 2018-09-25 22:26 | disposition home or self-care (01) ==
LOC: ER 18:06
DX: R07.89 Other chest pain (principal); J45.909 Unspecified asthma, uncomplicated; I25.10 Atherosclerotic heart disease of native coronary artery without angina pectoris; E78.00 Pure hypercholesterolemia, unspecified; I10 Essential (primary) hypertension; I25.2 Old myocardial infarction; F17.200 Nicotine dependence, unspecified, uncomplicated; Z88.5 Allergy status to narcotic agent
CPT/HCPCS: 36415; 71045; 80053; 84484; 85025; 93005; 96374; 99284; J1885

== ENCOUNTER 2018-12-27 00:48 | Emergency (ER) | payer OTHER ==
[~2018-12-27] VITALS: Ht 157.5 cm; Wt 59.0 kg
[2018-12-27 00:59] VITALS: BP 158/81
[2018-12-27] MEDS ORDERED: KETOROLAC 15 MG/ML VIAL. IV ONE (01:15)
--- NOTE | 2018-12-27 01:38 | RAD ---
AP chest. HISTORY: Chest pain Portable AP view was taken of the chest. Comparison is made with a study from September 2018. Patient had previous bypass. There is minimal linear scarring or atelectasis on the left. There are no other infiltrates. There is no effusion. Heart is upper normal in size. There is not evidence of heart failure. IMPRESSION: 1. Minimal linear scarring or atelectasis without other infiltrates. Electronically signed by: Yunior Harman MD (12/27/2018 1:34 AM) [facility]
[2018-12-27 01:42] LABS: BASO # 0.1 x10^3/uL (0.0-0.2); BASO % 1 % (0-3); EOS # 0.1 x10^3/uL (0.0-0.7); EOS % 1 % (0-3); HEMATOCRIT 33.8 % (36.0-47.0); HEMOGLOBIN 11.1 g/dL (12.0-15.5); LYMPH # 3.3 x10^3/uL (1.0-4.8); LYMPH % 52 % (24-48); MEAN CORPUSCULAR HEMOGLOBIN 30 pg (25-35); MEAN CORPUSCULAR HGB CONC 33 g/dL (31-37); MEAN CORPUSCULAR VOLUME 92 fL (79-100); MONO # 0.4 x10^3/uL (0.0-1.1); MONO % 7 % (0-9); NEUT # 2.4 x10^3uL (1.8-7.7); NEUT % 39 % (31-73); PLATELET COUNT 295 x10^3/uL (140-400); RED BLOOD COUNT 3.69 x10^6/uL (3.50-5.40); WHITE BLOOD COUNT 6.3 x10^3/uL (4.0-11.0)
[2018-12-27 01:51] LABS: CALCIUM 9.1 mg/dL (8.5-10.1); CREATININE 0.7 mg/dL (0.6-1.0); GFR 101.9; POTASSIUM 3.2 mmol/L (3.5-5.1)
[2018-12-27 01:57] LABS: ALBUMIN/GLOBULIN RATIO 1.3 (1.0-1.7); TOTAL BILIRUBIN 0.3 mg/dL (0.2-1.0)
--- NOTE | 2018-12-27 03:02 | PHYS DOC ---
Past Medical History Past Medical History: Asthma, CAD, High Cholesterol, Hypertension, [place] Past Surgical History: , Other Additional Past Surgical Histo: 're-did my valves',OPEN HEART, bypass in L leg Alcohol Use: None Drug Use: None Adult General Chief Complaint Chief Complaint: CHEST PAIN HPI HPI Patient is a 63 year old female presenting with chest pain. She's had this pain for 8 hours or more. It is been constant his left side under the breast it feels like, just double almost like a pressure sometimes hurts more to touch it or move in a certain way she says this feels very similar to the multiple times she has been in the emergency room for similar symptoms over the last year. Not worse with exertion Review of Systems Review of Systems Constitutional: Denies fever or chills [] Eyes: Denies change in visual acuity, redness, or eye pain [] HENT: Denies nasal congestion or sore throat [] Respiratory: GI: Denies abdominal pain, nausea, vomiting, bloody stools or diarrhea [] : Denies dysuria or hematuria [] Musculoskeletal: Denies back pain or joint pain [] Integument: Denies rash or skin lesions [] Neurologic: Denies headache, focal weakness or sensory changes []patient has known tremor Endocrine: Denies polyuria or polydipsia [] All other systems were reviewed and found to be within normal limits, except as documented in this note. Current Medications Current Medications Current Medications Medications (Trade) Dose Ordered Sig/Jody Start Time Stop Time Status Last Admin Dose Admin Ketorolac Tromethamine (Toradol 15mg Vial) 15 mg 1X ONCE 12/27/18 01:15 12/27/18 01:16 DC 12/27/18 01:19 15 MG Allergies Allergies Allergies Coded Allergies Type Severity Reaction Last Updated Verified hydrocodone Allergy Intermediate Itching 10/25/16 Yes Physical Exam Physical Exam Constitutional: Well developed, well nourished, no acute distress, non-toxic appearance. [] HENT: Normocephalic, atraumatic, bilateral external ears normal, oropharynx moist, no oral exudates, nose normal. [] Eyes: PERRLA, EOMI, conjunctiva normal, no discharge. [] Neck: Normal range of motion, no tenderness, supple, no stridor. [] Cardiovascular:Heart rate regular rhythm, mechanical heart sound noted Lungs & Thorax: Bilateral breath sounds clear to auscultation []reproducible chest wall tenderness just underneath the left breast Abdomen: Bowel sounds normal, soft, no tenderness, no masses, no pulsatile masses. [] Skin: Warm, dry, no erythema, no rash. [] Back: No tenderness, no CVA tenderness. [] Extremities: No tenderness, no cyanosis, no clubbing, ROM intact, no edema. [] Neurologic: Alert and oriented X 3, normal motor function, normal sensory function, no focal deficits noted. Tremor[] Psychologic: Affect normal, judgement normal, mood normal. [] Current Patient Data Vital Signs Vital Signs Date Time Temp Pulse Resp B/P (MAP) Pulse Ox O2 Delivery O2 Flow Rate FiO2 12/27/18 00:50 98.7 78 16 158/81 (106) 99 Room Air 98.7 Lab Values Laboratory Tests Test 12/27/18 01:25 White Blood Count 6.3 x10^3/uL (4.0-11.0) Red Blood Count 3.69 x10^6/uL (3.50-5.40) Hemoglobin 11.1 g/dL (12.0-15.5) L Hematocrit 33.8 % (36.0-47.0) L Mean Corpuscular Volume 92 fL (79-100) Mean Corpuscular Hemoglobin 30 pg (25-35) Mean Corpuscular Hemoglobin Concent 33 g/dL (31-37) Red Cell Distribution Width 14.0 % (11.5-14.5) Platelet Count 295 x10^3/uL (140-400) Neutrophils (%) (Auto) 39 % (31-73) Lymphocytes (%) (Auto) 52 % (24-48) H Monocytes (%) (Auto) 7 % (0-9) Eosinophils (%) (Auto) 1 % (0-3) Basophils (%) (Auto) 1 % (0-3) Neutrophils # (Auto) 2.4 x10^3uL (1.8-7.7) Lymphocytes # (Auto) 3.3 x10^3/uL (1.0-4.8) Monocytes # (Auto) 0.4 x10^3/uL (0.0-1.1) Eosinophils # (Auto) 0.1 x10^3/uL (0.0-0.7) Basophils # (Auto) 0.1 x10^3/uL (0.0-0.2) Sodium Level 141 mmol/L (136-145) Potassium Level 3.2 mmol/L (3.5-5.1) L Chloride Level 103 mmol/L (98-107) Carbon Dioxide Level 26 mmol/L (21-32) Anion Gap 12 (6-14) Blood Urea Nitrogen 16 mg/dL (7-20) Creatinine 0.7 mg/dL (0.6-1.0) Estimated GFR (Cockcroft-Gault) 101.9 BUN/Creatinine Ratio 23 (6-20) H Glucose Level 97 mg/dL (70-99) Calcium Level 9.1 mg/dL (8.5-10.1) Total Bilirubin 0.3 mg/dL (0.2-1.0) Aspartate Amino Transferase (AST) 14 U/L (15-37) L Alanine Aminotransferase (ALT) 20 U/L (14-59) Alkaline Phosphatase 63 U/L (46-116) Troponin I Quantitative < 0.017 ng/mL (0.000-0.055) Total Protein 7.0 g/dL (6.4-8.2) Albumin 4.0 g/dL (3.4-5.0) Albumin/Globulin Ratio 1.3 (1.0-1.7) Laboratory Tests 12/27/18 01:25 Laboratory Tests 12/27/18 01:25 EKG EKG []EKG shows a normal sinus rhythm rate of 57 there are T wave inversions anterolaterally similar to previous May 14, 2018 Radiology/Procedures Radiology/Procedures [] Impressions: IMPRESSION: 1. Minimal linear scarring or atelectasis without other infiltrates. Electronically signed by: Yunior Hough MD (12/27/2018 1:34 AM) [facility] DICTATED and SIGNED BY: YUNIOR HOUGH MD DATE: 12/27/18 0134 Course & Med Decision Making Course & Med Decision Making Pertinent Labs and Imaging studies reviewed. (See chart for details) []63 old female history of valve replacement not on any blood thinners presenting with chest pain multiple ER presentations for the same symptom. It d oes not sound cardiac troponin is negative after greater than 8 hours of constant pain it's not exertional EKG unchanged I removed her from last time this is almost an identical story think she is safe for outpatient management Terrance Disclaimer Dragon Disclaimer This electronic medical record was generated, in whole or in part, using a voice recognition dictation system. Departure Departure Impression: Primary Impression: Chest pain Disposition: 01 HOME, SELF-CARE Condition: STABLE Referrals: JAE NOVAK MD (PCP) Patient Instructions: Chest Pain (Nonspecific), [id number] WIL MUÑIZ MD December 27, 2018 03:02
--- NOTE | 2018-12-27 06:05 | EKG ---
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
== END 2018-12-27 02:31 | disposition home or self-care (01) ==
LOC: ER 00:48
DX: R07.89 Other chest pain (principal); R25.1 Tremor, unspecified; J45.909 Unspecified asthma, uncomplicated; E78.00 Pure hypercholesterolemia, unspecified; I10 Essential (primary) hypertension; I25.2 Old myocardial infarction; I25.10 Atherosclerotic heart disease of native coronary artery without angina pectoris; Z98.890 Other specified postprocedural states; Z88.5 Allergy status to narcotic agent
CPT/HCPCS: 36415; 71045; 80053; 84484; 85025; 93005; 96374; 99285; J1885

== ENCOUNTER 2019-04-25 18:24 | Emergency (ER) | payer OTHER ==
[~2019-04-25] VITALS: Ht 157.5 cm; Wt 60.8 kg
[~2019-04-25 18:24] MED LIST changes: +CLONAZEPAM1 MG PO; +CYCL10TA2 PO
[2019-04-25] MEDS ORDERED: ASPIRIN 325 MG TABLET PO ONE (18:45)
[2019-04-25] MEDS ORDERED: IV NORMAL SALINE 1000ML BAG 1,000 ML IV ONE (18:45)
--- NOTE | 2019-04-25 18:52 | EKG ---
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
--- NOTE | 2019-04-25 18:52 | PHYS DOC ---
Past Medical History Past Medical History: Asthma, CAD, High Cholesterol, Hypertension, AL Past Surgical History: Coronary Bypass Surgery, , Other Additional Past Surgical Histo: 're-did my valves',OPEN HEART, bypass in L leg Smoking: Quit Greater Than 1 Year Alcohol Use: None Drug Use: None Adult General Chief Complaint Chief Complaint: Chest pain HPI HPI 63-year-old female presents with report of chest pain to left side which started yesterday. Patient reports was recently admitted to the hospital for same 04/13/19 through 04/16/19. Patient denies trauma. Denies fever or chills. Denies cough. Denies leg swelling or calf tenderness. Patient reports she trialed nitroglycerin without improvement. Reports pain is worse with laying down. Patient with cardiac risk factors of prior CAD s/p single vessel CABG with COWAN to the LAD, former smoker, HTN, and hyperlipidemia. [facility] patient with Cath at 01/22/19. Records were obtained and showed patent COWAN graft with no distal stenosis in the LAD, mild disease involving the LCX, and minimal plaquing in the RCA as noted below. Additionally, Of note, she has had 5 admissions to for CP in the last 2 months with most recent at the end of March. Pain felt to be non-cardiac at the time with no further cardiac workup warranted after negative serial troponin. Review of Systems Review of Systems Constitutional: Denies fever or chills Eyes: Denies redness or eye pain HENT: Denies nasal congestion or sore throat Respiratory: Denies cough or shortness of breath Cardiovascular: Reports chest pain; denies palpitations GI: Denies abdominal pain, nausea, or vomiting : Denies dysuria or hematuria Musculoskeletal: Denies back pain or calf pain Integument: Denies rash or skin lesions Neurologic: Denies headache, focal weakness or sensory changes Complete systems were reviewed and found to be within normal limits, except as documented in this note. Current Medications Current Medications Current Medications Medications (Trade) Dose Ordered Sig/Jody Start Time Stop Time Status Last Admin Dose Admin Aspirin (Tj Aspirin) 325 mg 1X ONCE 04/25/19 18:45 04/25/19 18:46 DC 04/25/19 19:00 325 MG Fentanyl Citrate (Fentanyl 2ml Vial) 50 mcg 1X ONCE 04/25/19 21:00 04/25/19 21:01 DC 04/25/19 20:59 50 MCG Info (CONTRAST GIVEN -- Rx MONITORING) 1 each PRN DAILY PRN 04/25/19 19:45 04/27/19 19:44 Iohexol (Omnipaque 350 Mg/ml) 100 ml STK-MED ONCE 04/25/19 19:32 04/25/19 19:33 DC Sodium Chloride 1,000 ml @ 1,000 mls/hr 1X ONCE 04/25/19 18:45 04/25/19 19:44 DC 04/25/19 19:00 1,000 MLS/HR Allergies Allergies Allergies Coded Allergies Type Severity Reaction Last Updated Verified hydrocodone Allergy Intermediate Itching 10/25/16 Yes Physical Exam Physical Exam Constitutional: Well developed, well nourished, no acute distress, non-toxic appearance HENT: Normocephalic, atraumatic, oropharynx moist Eyes: Conjunctiva normal, no discharge Neck: Normal range of motion, no tenderness, supple Cardiovascular: Heart rate normal, regular rhythm Lungs & Thorax: Bilateral breath sounds clear to auscultation, no wheezing Abdomen: Soft, no tenderness Skin: Warm, dry, no erythema, no rash Extremities: No tenderness, ROM intact, no edema Neurologic: Alert and oriented X 3, no focal deficits noted Psychologic: Affect normal, judgement normal Current Patient Data Vital Signs Vital Signs Date Time Temp Pulse Resp B/P (MAP) Pulse Ox O2 Delivery O2 Flow Rate FiO2 04/25/19 20:59 18 100 Room Air 04/25/19 20:31 78 186/74 (111) 04/25/19 18:38 97.6 97.6 Lab Values Laboratory Tests Test 04/25/19 18:45 04/25/19 19:35 04/25/19 20:45 White Blood Count 6.2 x10^3/uL (4.0-11.0) Red Blood Count 3.52 x10^6/uL (3.50-5.40) Hemoglobin 10.6 g/dL (12.0-15.5) L Hematocrit 31.6 % (36.0-47.0) L Mean Corpuscular Volume 90 fL (79-100) Mean Corpuscular Hemoglobin 30 pg (25-35) Mean Corpuscular Hemoglobin Concent 34 g/dL (31-37) Red Cell Distribution Width 14.9 % (11.5-14.5) H Platelet Count 291 x10^3/uL (140-400) Neutrophils (%) (Auto) 47 % (31-73) Lymphocytes (%) (Auto) 43 % (24-48) Monocytes (%) (Auto) 8 % (0-9) Eosinophils (%) (Auto) 1 % (0-3) Basophils (%) (Auto) 1 % (0-3) Neutrophils # (Auto) 2.9 x10^3/uL (1.8-7.7) Lymphocytes # (Auto) 2.6 x10^3/uL (1.0-4.8) Monocytes # (Auto) 0.5 x10^3/uL (0.0-1.1) Eosinophils # (Auto) 0.1 x10^3/uL (0.0-0.7) Basophils # (Auto) 0.1 x10^3/uL (0.0-0.2) Prothrombin Time 11.8 SEC (11.7-14.0) Prothrombin Time INR 0.9 (0.8-1.1) Activated Partial Thromboplast Time 29 SEC (24-38) D-Dimer (Claudia) < 0.27 ug/mlFEU Sodium Level 144 mmol/L (136-145) Potassium Level 3.5 mmol/L (3.5-5.1) Chloride Level 107 mmol/L (98-107) Carbon Dioxide Level 31 mmol/L (21-32) Anion Gap 6 (6-14) Blood Urea Nitrogen 19 mg/dL (7-20) Creatinine 0.7 mg/dL (0.6-1.0) Estimated GFR (Cockcroft-Gault) 101.9 BUN/Creatinine Ratio 27 (6-20) H Glucose Level 101 mg/dL (70-99) H Calcium Level 8.9 mg/dL (8.5-10.1) Magnesium Level 1.8 mg/dL (1.8-2.4) Total Bilirubin 0.3 mg/dL (0.2-1.0) Aspartate Amino Transferase (AST) 15 U/L (15-37) Alanine Aminotransferase (ALT) 18 U/L (14-59) Alkaline Phosphatase 68 U/L (46-116) Creatine Kinase 98 U/L (26-192) Creatine Kinase MB (Mass) 1.0 ng/mL (0.0-3.6) Creatine Kinase MB Relative Index 1.0 % (0-4) Troponin I Quantitative < 0.017 ng/mL (0.000-0.055) < 0.017 ng/mL (0.000-0.055) QI-Igf-B-Type Natriuretic Peptide 169 pg/mL (0-124) H Total Protein 7.1 g/dL (6.4-8.2) Albumin 3.7 g/dL (3.4-5.0) Albumin/Globulin Ratio 1.1 (1.0-1.7) Lipase 179 U/L (73-393) Ethyl Alcohol Level < 10 mg/dL (0-10) Urine Collection Type Unknown Urine Color Yellow Urine Clarity Clear Urine pH 6.0 Urine Specific [place] 1.020 Urine Protein Negative mg/dL (NEG-TRACE) Urine Glucose (UA) Negative mg/dL (NEG) Urine Ketones (Stick) Negative mg/dL (NEG) Urine Blood Negative (NEG) Urine Nitrite Negative (NEG) Urine Bilirubin Negative (NEG) Urine Urobilinogen Dipstick 0.2 mg/dL (0.2 mg/dL) Urine Leukocyte Esterase Small (NEG) Urine RBC 0 /HPF (0-2) Urine WBC 1-4 /HPF (0-4) Urine Squamous Epithelial Cells Few /LPF Urine Bacteria 0 /HPF (0-FEW) Urine Mucus Mod /LPF Urine Opiates Screen Neg (NEG) Urine Methadone Screen Neg (NEG) Urine Barbiturates Neg (NEG) Urine Phencyclidine Screen Neg (NEG) Urine Amphetamine/Methamphetamine Neg (NEG) Urine Benzodiazepines Screen Neg (NEG) Urine Cocaine Screen Neg (NEG) Urine Cannabinoids Screen Neg (NEG) Urine Ethyl Alcohol Neg (NEG) Laboratory Tests 04/25/19 18:45 Laboratory Tests 04/25/19 18:45 EKG EKG @1828 NSR at 73bpm, NO ST elevation, t wave inversion I and avL and V2-V5; compared to prior EKG per [facility] from 12/27/18 without significant change Radiology/Procedures Radiology/Procedures PROCEDURE: CT ANGIOGRAPHY CHEST Examination: CT ANGIOGRAPHY CHEST History: Chest pain Comparison/Correlation: 04/13/2019 two-view chest x-ray exam Findings: Axial images of chest were obtained following IV contrast according to pulmonary arteriography protocol. Sagittal and coronal reformatted images were provided. MIP images provided. Tracheobronchial tree is unremarkable. Mild diffuse centrilobular emphysematous involvement of the lung sanchez noted. Pulmonary arterial vasculature is normal with no thromboembolic disease. Mild dilated cardiomegaly is evident. Thoracic aorta is unremarkable for the patient's age. No pleural or pericardial effusion. No enlarged thoracic lymph nodes. Partially visualized upper abdomen is unremarkable. No infiltrate. Significant calcific involvement of the proximal right main renal artery origin is noted up to 75 percent stenosis suspected. Approximately 50 percent left main renal artery stenosis suspected as well. Impression: No pulmonary arterial thromboembolic disease. Surrounding calcific involvement of the proximal right main renal artery with approximately 75 percent stenosis suspected. Centrilobular emphysema. PQRS Compliance Statement: One or more of the following individualized dose reduction techniques were utilized for this examination: 1. Automated exposure control 2. Adjustment of the mA and/or kV according to patient size 3. Use of iterative reconstruction technique Electronically signed by: Massimo Colin MD (04/25/2019 8:42 PM) [facility] Course & Med Decision Making Course & Med Decision Making Pertinent Labs and Imaging studies reviewed. (See chart for details) Patient presents with report of chest pain which has been ongoing since yesterday. Patient with history of multiple visits to both and here for same. Most recent visit here 04/13/19-04/16/19. Patient with history of recent cath at which was without concern for blockage. EKG stable. Labs obtained and posted to chart. Troponin x 2 negative. CTA chest without signs of PE. Some renal stenosis noted to right side. A copy of CT imaging given to patient to give to PCP and specialists as needed. Given recent admission and recent cath, doubt cardiac etiology despite HEART score 5. Discussed case with Dr. Ennis (cardiology) who is in agreement patient can follow up as outpatient. Patient stable for discharge with outpatient follow-up with PCP/cardiology/nephrology/vascular surgery. Discussed findings and plan with patient, who acknowledges understanding and agreement. Dragon Disclaimer Dragon Disclaimer This electronic medical record was generated, in whole or in part, using a voice recognition dictation system. Departure Departure Impression: Primary Impression: Chest pain Additional Impression: Renal artery stenosis Disposition: 01 HOME, SELF-CARE Condition: STABLE Referrals: JAE NOVAK MD (PCP) JOSEFINA ROLLINS MD, KIRK A MD KATRAPATI, PRASHANTH S MD Patient Instructions: Chest Pain (Nonspecific), [id number], Renal Artery Stenosis Scripts Oxycodone/Apap 5-325 (PERCOCET 5-325 MG TABLET ) 1 Each Tablet 0.5-1 TAB PO PRN Q6HRS PRN for PAIN, #10 TAB 0 Refills Prov: DIXIE WILLOUGHBY DO 04/25/19 The HEART Score for CP Pts HEART Score for Chest Pain: HEART Score for Chest Pain Response (Comments) Value History Moderately Suspicious 1 ECG Nonspecific Repolarizatio 1 Age >45 - < 65 1 Risk Factors >3 Risk Factors or Hx CAD 2 Troponin < Normal Limit 0 Total 5 Risk Factors: Risk Factors: DM, Current or recent (<one month) smoker, HTN, HLP, family history of CAD, obesity. Risk Scores: Score 0 - 3: 2.5% MACE over next 6 weeks - Discharge Home Score 4 - 6: 20.3% MACE over next 6 weeks - Admit for Clinical Observation Score 7 - 10: 72.7% MACE over next 6 weeks - Early Invasive Strategies Problem Qualifiers Primary Impression: Chest pain Chest pain type: unspecified Qualified Codes: R07.9 - Chest pain, unspecified DIXIE WILLOUGHBY DO Apr 25, 2019 18:52
[2019-04-25 19:00] LABS: BASO # 0.1 x10^3/uL (0.0-0.2); BASO % 1 % (0-3); EOS # 0.1 x10^3/uL (0.0-0.7); EOS % 1 % (0-3); HEMATOCRIT 31.6 % (36.0-47.0); HEMOGLOBIN 10.6 g/dL (12.0-15.5); LYMPH # 2.6 x10^3/uL (1.0-4.8); LYMPH % 43 % (24-48); MEAN CORPUSCULAR HEMOGLOBIN 30 pg (25-35); MEAN CORPUSCULAR HGB CONC 34 g/dL (31-37); MEAN CORPUSCULAR VOLUME 90 fL (79-100); MONO # 0.5 x10^3/uL (0.0-1.1); MONO % 8 % (0-9); NEUT # 2.9 x10^3/uL (1.8-7.7); NEUT % 47 % (31-73); PLATELET COUNT 291 x10^3/uL (140-400); RED BLOOD COUNT 3.52 x10^6/uL (3.50-5.40); RED CELL DISTRIBUTION WIDTH 14.9 % (11.5-14.5); WHITE BLOOD COUNT 6.2 x10^3/uL (4.0-11.0)
[2019-04-25 19:07] LABS: PARTIAL THROMBOPLASTIN TIME 29 SEC (24-38); PROTHROMBIN TIME PATIENT 11.8 SEC (11.7-14.0)
[2019-04-25 19:10] LABS: D-DIMER < 0.27 ug/mlFEU (0.00-0.50)
[2019-04-25 19:20] LABS: CALCIUM 8.9 mg/dL (8.5-10.1); CREATININE 0.7 mg/dL (0.6-1.0); GFR 101.9; POTASSIUM 3.5 mmol/L (3.5-5.1)
[2019-04-25] MEDS ORDERED: IOHEXOL 350 MG/ML 100 ML VIAL. IV ONE (19:30)
[2019-04-25 19:32] LABS: ALBUMIN 3.7 g/dL (3.4-5.0); ALBUMIN/GLOBULIN RATIO 1.1 (1.0-1.7); MAGNESIUM 1.8 mg/dL (1.8-2.4); TOTAL BILIRUBIN 0.3 mg/dL (0.2-1.0); TOTAL PROTEIN 7.1 g/dL (6.4-8.2)
[2019-04-25] MEDS ORDERED: IOHEXOL 350 MG/ML 100 ML VIAL. ONE (19:32)
[2019-04-25] MEDS ORDERED: CONTRAST GIVEN. MC PRN (19:45)
[2019-04-25 20:22] LABS: BARBITURATES NEG (NEG); BENZODIAZEPINES NEG (NEG); CANNABINOIDS NEG (NEG); COCAINE NEG (NEG); METHADONE NEG (NEG); OPIATES NEG (NEG); PHENCYCLIDINE NEG (NEG)
[2019-04-25 20:23] LABS: AMPHETAMINE/METHAMPHETAMINE NEG (NEG)
[2019-04-25 20:27] LABS: BILIRUBIN,URINE NEGATIVE (NEG); CLARITY,URINE CLEAR; COLOR,URINE YELLOW; NITRITE,URINE NEGATIVE (NEG); PROTEIN,URINE NEGATIVE (NEG-TRACE); UROBILINOGEN,URINE 0.2 mg/dL (0.2 mg/dL)
[2019-04-25 20:30] LABS: RBC,URINE 0 /HPF (0-2); SQUAMOUS EPITHELIAL CELL,UR FEW /LPF
[2019-04-25 20:31] VITALS: BP 186/74
[2019-04-25 20:31] LABS: BACTERIA,URINE 0 /HPF (0-FEW)
--- NOTE | 2019-04-25 20:45 | RAD ---
Examination: CT ANGIOGRAPHY CHEST History: Chest pain Comparison/Correlation: 04/13/2019 two-view chest x-ray exam Findings: Axial images of chest were obtained following IV contrast according to pulmonary arteriography protocol. Sagittal and coronal reformatted images were provided. MIP images provided. Tracheobronchial tree is unremarkable. Mild diffuse centrilobular emphysematous involvement of the lung sanchez noted. Pulmonary arterial vasculature is normal with no thromboembolic disease. Mild dilated cardiomegaly is evident. Thoracic aorta is unremarkable for the patient's age. No pleural or pericardial effusion. No enlarged thoracic lymph nodes. Partially visualized upper abdomen is unremarkable. No infiltrate. Significant calcific involvement of the proximal right main renal artery origin is noted up to 75 percent stenosis suspected. Approximately 50 percent left main renal artery stenosis suspected as well. Impression: No pulmonary arterial thromboembolic disease. Surrounding calcific involvement of the proximal right main renal artery with approximately 75 percent stenosis suspected. Centrilobular emphysema. PQRS Compliance Statement: One or more of the following individualized dose reduction techniques were utilized for this examination: 1. Automated exposure control 2. Adjustment of the mA and/or kV according to patient size 3. Use of iterative reconstruction technique Electronically signed by: Massimo Colin MD (04/25/2019 8:42 PM) [facility]
[2019-04-25] MEDS ORDERED: fentaNYL PF VIAL 100 MCG/2 ML VIAL IV ONE (21:00)
[2019-04-25] MEDS ORDERED: OXYC1TAB15 PO (21:04)
== END 2019-04-25 21:36 | disposition home or self-care (01) ==
LOC: ER 18:24
DX: R07.89 Other chest pain (principal); I70.1 Atherosclerosis of renal artery; J45.909 Unspecified asthma, uncomplicated; I25.10 Atherosclerotic heart disease of native coronary artery without angina pectoris; E78.00 Pure hypercholesterolemia, unspecified; I25.2 Old myocardial infarction; I10 Essential (primary) hypertension; Z95.5 Presence of coronary angioplasty implant and graft; Z98.890 Other specified postprocedural states; Z87.891 Personal history of nicotine dependence; Z88.5 Allergy status to narcotic agent
CPT/HCPCS: 36415; 71275; 80053; 80307; 81001; 82553; 83690; 83735; 83880; 84484; 85025; 85379; 85610; 85730; 87086; 93005; 96374; 99285; G0480; J3010; J7030; Q9967

== ENCOUNTER 2019-05-08 16:32 | Inpatient (IN) | payer OTHER ==
[~2019-05-08] VITALS: Ht 157.5 cm; Wt 63.2 kg
--- NOTE | 2019-05-08 17:19 | RAD ---
Exam: Chest one view INDICATION: Arm pain TECHNIQUE: Frontal view of the chest Comparisons: 04/13/2019 FINDINGS: Sternotomy wires are noted. The cardiomediastinal silhouette and pulmonary vessels are within normal limits. The lung and pleural spaces are clear. IMPRESSION: No acute cardiopulmonary process. Electronically signed by: Law Krishna MD (05/08/2019 5:16 PM) [facility]
[2019-05-08 17:40] LABS: PROTHROMBIN TIME PATIENT 12.9 SEC (11.7-14.0)
--- NOTE | 2019-05-08 17:40 | PHYS DOC ---
Past Medical History Past Medical History: Asthma, CAD, High Cholesterol, Hypertension, [place] (MODE MURPHY APRN) Past Surgical History: Coronary Bypass Surgery, , Other Additional Past Surgical Histo: 're-did my valves',OPEN HEART, bypass in L leg (MODE MURPHY APRN) Alcohol Use: None Drug Use: None (MODE MURPHY APRN) Adult General Chief Complaint Chief Complaint: UPPER EXTREMITY PAIN HPI HPI Patient is a 63 year old female with a history of [place] with open heart surgery in 1999, hypertension, high cholesterol, [place] disease, Who presents to the ED today complaining of intermittent episodes of left arm pain specifically shoulder to the elbow for the last 3 days. Patient denies any relieving or exacerbating factors to her symptoms. She states the pain was in bilateral shoulders three days ago but now it is on the left side only. Patient states she did not take her blood pressure medications today. She does not have any reason why. (MODE MURPHY APRN) Review of Systems Review of Systems Constitutional: Denies fever or chills [] Eyes: Denies change in visual acuity, redness, or eye pain [] HENT: Denies nasal congestion or sore throat [] Respiratory: Denies cough or shortness of breath [] Cardiovascular: Reports bilateral shoulder pain currently left shoulder and left arm GI: Denies abdominal pain, nausea, vomiting, bloody stools or diarrhea [] : Denies dysuria or hematuria [] Musculoskeletal: Denies back pain or joint pain [] Integument: Denies rash or skin lesions [] Neurologic: Denies headache, focal weakness or sensory changes [] All other systems were reviewed and found to be within normal limits, except as documented in this note. (MODE MURPHY APRN) Current Medications Current Medications Current Medications Medications (Trade) Dose Ordered Sig/Jody Start Time Stop Time Status Last Admin Dose Admin Acetaminophen (Tylenol) 1,000 mg 1X ONCE 05/08/19 20:45 05/08/19 20:46 DC 05/08/19 20:46 1,000 MG (KIARA MOFFETT MD) Allergies Allergies Allergies Coded Allergies Type Severity Reaction Last Updated Verified hydrocodone Allergy Intermediate Itching 10/25/16 Yes (KIARA MOFFETT MD) Physical Exam Physical Exam Constitutional: Well developed, well nourished, no acute distress, non-toxic appearance. [] HENT: Normocephalic, atraumatic, bilateral external ears normal, oropharynx moist, no oral exudates, nose normal. [] Eyes: PERRLA, EOMI, conjunctiva normal, no discharge. [] Neck: Normal range of motion, no tenderness, supple, no stridor. [] Cardiovascular: Old healed surgical incision noted midline chest. Heart rate regular rhythm, no murmur [] Lungs & Thorax: Bilateral breath sounds clear to auscultation [] Abdomen: Bowel sounds normal, soft, no tenderness, no masses, no pulsatile masses. [] Skin: Warm, dry, no erythema, no rash. [] Back: No tenderness, no CVA tenderness. [] Extremities: No tenderness, no cyanosis, no clubbing, ROM intact, no edema. [] Neurologic: Alert and oriented X 3, normal motor function, normal sensory function, no focal deficits noted. [] Psychologic: Affect normal, judgement normal, mood normal. [] (MODE MURPHY APRN) Current Patient Data Vital Signs Vital Signs Date Time Temp Pulse Resp B/P (MAP) Pulse Ox O2 Delivery O2 Flow Rate FiO2 05/08/19 19:30 63 143/69 (93) 98 Room Air 05/08/19 16:36 98.4 20 98.4 (KIARA MOFFETT MD) Lab Values Laboratory Tests Test 05/08/19 17:08 05/08/19 17:33 05/08/19 19:00 Prothrombin Time 12.9 SEC (11.7-14.0) Prothrombin Time INR 1.0 (0.8-1.1) Sodium Level 144 mmol/L (136-145) Potassium Level 3.5 mmol/L (3.5-5.1) Chloride Level 106 mmol/L (98-107) Carbon Dioxide Level 31 mmol/L (21-32) Anion Gap 7 (6-14) Blood Urea Nitrogen 12 mg/dL (7-20) Creatinine 0.7 mg/dL (0.6-1.0) Estimated GFR (Cockcroft-Gault) 101.9 BUN/Creatinine Ratio 17 (6-20) Glucose Level 86 mg/dL (70-99) Calcium Level 9.3 mg/dL (8.5-10.1) Magnesium Level 1.9 mg/dL (1.8-2.4) Total Bilirubin 0.6 mg/dL (0.2-1.0) Aspartate Amino Transferase (AST) 12 U/L (15-37) L Alanine Aminotransferase (ALT) 15 U/L (14-59) Alkaline Phosphatase 76 U/L (46-116) Creatine Kinase 86 U/L (26-192) Creatine Kinase MB (Mass) 0.8 ng/mL (0.0-3.6) Creatine Kinase MB Relative Index 0.9 % (0-4) Troponin I Quantitative < 0.017 ng/mL (0.000-0.055) MA-Prj-I-Type Natriuretic Peptide 375 pg/mL (0-124) H Total Protein 7.3 g/dL (6.4-8.2) Albumin 3.9 g/dL (3.4-5.0) Albumin/Globulin Ratio 1.1 (1.0-1.7) Thyroid Stimulating Hormone (TSH) 1.659 uIU/mL (0.358-3.74) White Blood Count 5.1 x10^3/uL (4.0-11.0) Red Blood Count 3.64 x10^6/uL (3.50-5.40) Hemoglobin 10.8 g/dL (12.0-15.5) L Hematocrit 32.6 % (36.0-47.0) L Mean Corpuscular Volume 89 fL (79-100) Mean Corpuscular Hemoglobin 30 pg (25-35) Mean Corpuscular Hemoglobin Concent 33 g/dL (31-37) Red Cell Distribution Width 14.8 % (11.5-14.5) H Platelet Count 308 x10^3/uL (140-400) Neutrophils (%) (Auto) 44 % (31-73) Lymphocytes (%) (Auto) 43 % (24-48) Monocytes (%) (Auto) 11 % (0-9) H Eosinophils (%) (Auto) 2 % (0-3) Basophils (%) (Auto) 1 % (0-3) Neutrophils # (Auto) 2.2 x10^3/uL (1.8-7.7) Lymphocytes # (Auto) 2.2 x10^3/uL (1.0-4.8) Monocytes # (Auto) 0.5 x10^3/uL (0.0-1.1) Eosinophils # (Auto) 0.1 x10^3/uL (0.0-0.7) Basophils # (Auto) 0.1 x10^3/uL (0.0-0.2) Urine Collection Type Unknown Urine Color Yellow Urine Clarity Clear Urine pH 7.5 Urine Specific [place]ullinger 1.025 Urine Protein Negative mg/dL (NEG-TRACE) Urine Glucose (UA) Negative mg/dL (NEG) Urine Ketones (Stick) Negative mg/dL (NEG) Urine Blood Negative (NEG) Urine Nitrite Negative (NEG) Urine Bilirubin Negative (NEG) Urine Urobilinogen Dipstick 1.0 mg/dL (0.2 mg/dL) Urine Leukocyte Esterase Small (NEG) Urine RBC 3-5 /HPF (0-2) Urine WBC 1-4 /HPF (0-4) Urine Squamous Epithelial Cells Mod /LPF Urine Amorphous Sediment Present /HPF Urine Bacteria Few /HPF (0-FEW) Urine Mucus Mod /LPF Urine Opiates Screen Neg (NEG) Urine Methadone Screen Neg (NEG) Urine Barbiturates Neg (NEG) Urine Phencyclidine Screen Neg (NEG) Urine Amphetamine/Methamphetamine Neg (NEG) Urine Benzodiazepines Screen Neg (NEG) Urine Cocaine Screen Neg (NEG) Urine Cannabinoids Screen Neg (NEG) Urine Ethyl Alcohol Neg (NEG) Laboratory Tests 05/08/19 17:33 Laboratory Tests 05/08/19 17:08 (KIARA MOFFETT MD) Lab Values Laboratory Tests Test 05/08/19 17:08 05/08/19 17:33 05/08/19 19:00 Prothrombin Time 12.9 SEC (11.7-14.0) Prothrombin Time INR 1.0 (0.8-1.1) Sodium Level 144 mmol/L (136-145) Potassium Level 3.5 mmol/L (3.5-5.1) Chloride Level 106 mmol/L (98-107) Carbon Dioxide Level 31 mmol/L (21-32) Anion Gap 7 (6-14) Blood Urea Nitrogen 12 mg/dL (7-20) Creatinine 0.7 mg/dL (0.6-1.0) Estimated GFR (Cockcroft-Gault) 101.9 BUN/Creatinine Ratio 17 (6-20) Glucose Level 86 mg/dL (70-99) Calcium Level 9.3 mg/dL (8.5-10.1) Magnesium Level 1.9 mg/dL (1.8-2.4) Total Bilirubin 0.6 mg/dL (0.2-1.0) Aspartate Amino Transferase (AST) 12 U/L (15-37) L Alanine Aminotransferase (ALT) 15 U/L (14-59) Alkaline Phosphatase 76 U/L (46-116) Creatine Kinase 86 U/L (26-192) Creatine Kinase MB (Mass) 0.8 ng/mL (0.0-3.6) Creatine Kinase MB Relative Index 0.9 % (0-4) Troponin I Quantitative < 0.017 ng/mL (0.000-0.055) EV-Xvf-O-Type Natriuretic Peptide 375 pg/mL (0-124) H Total Protein 7.3 g/dL (6.4-8.2) Albumin 3.9 g/dL (3.4-5.0) Albumin/Globulin Ratio 1.1 (1.0-1.7) Thyroid Stimulating Hormone (TSH) 1.659 uIU/mL (0.358-3.74) White Blood Count 5.1 x10^3/uL (4.0-11.0) Red Blood Count 3.64 x10^6/uL (3.50-5.40) Hemoglobin 10.8 g/dL (12.0-15.5) L Hematocrit 32.6 % (36.0-47.0) L Mean Corpuscular Volume 89 fL (79-100) Mean Corpuscular Hemoglobin 30 pg (25-35) Mean Corpuscular Hemoglobin Concent 33 g/dL (31-37) Red Cell Distribution Width 14.8 % (11.5-14.5) H Platelet Count 308 x10^3/uL (140-400) Neutrophils (%) (Auto) 44 % (31-73) Lymphocytes (%) (Auto) 43 % (24-48) Monocytes (%) (Auto) 11 % (0-9) H Eosinophils (%) (Auto) 2 % (0-3) Basophils (%) (Auto) 1 % (0-3) Neutrophils # (Auto) 2.2 x10^3/uL (1.8-7.7) Lymphocytes # (Auto) 2.2 x10^3/uL (1.0-4.8) Monocytes # (Auto) 0.5 x10^3/uL (0.0-1.1) Eosinophils # (Auto) 0.1 x10^3/uL (0.0-0.7) Basophils # (Auto) 0.1 x10^3/uL (0.0-0.2) Urine Collection Type Unknown Urine Color Yellow Urine Clarity Clear Urine pH 7.5 Urine Specific [place] 1.025 Urine Protein Negative mg/dL (NEG-TRACE) Urine Glucose (UA) Negative mg/dL (NEG) Urine Ketones (Stick) Negative mg/dL (NEG) Urine Blood Negative (NEG) Urine Nitrite Negative (NEG) Urine Bilirubin Negative (NEG) Urine Urobilinogen Dipstick 1.0 mg/dL (0.2 mg/dL) Urine Leukocyte Esterase Small (NEG) Urine RBC 3-5 /HPF (0-2) Urine WBC 1-4 /HPF (0-4) Urine Squamous Epithelial Cells Mod /LPF Urine Amorphous Sediment Present /HPF Urine Bacteria Few /HPF (0-FEW) Urine Mucus Mod /LPF Urine Opiates Screen Neg (NEG) Urine Methadone Screen Neg (NEG) Urine Barbiturates Neg (NEG) Urine Phencyclidine Screen Neg (NEG) Urine Amphetamine/Methamphetamine Neg (NEG) Urine Benzodiazepines Screen Neg (NEG) Urine Cocaine Screen Neg (NEG) Urine Cannabinoids Screen Neg (NEG) Urine Ethyl Alcohol Neg (NEG) Laboratory Tests 05/08/19 17:33 Laboratory Tests 05/08/19 17:08 (MODE MURPHY APRN) EKG EKG [address] Moffett sinus rhythm with inverted T waves noted in V4, V5, V2, V3, V6, this is similar to the last EKG done on April 25, 2019.[] (MODE MURPHY APRN) Radiology/Procedures Radiology/Procedures []PROCEDURE: PORTABLE CHEST 1V Exam: Chest one view INDICATION: Arm pain TECHNIQUE: Frontal view of the chest Comparisons: 04/13/2019 FINDINGS: Sternotomy wires are noted. The cardiomediastinal silhouette and pulmonary vessels are within normal limits. The lung and pleural spaces are clear. IMPRESSION: No acute cardiopulmonary process. Electronically signed by: Law Cuello MD (05/08/2019 5:16 PM) [facility] DICTATED and SIGNED BY: LAW CUELLO MD DATE: 05/08/19 1716 (MODE MURPHY APRN) Course & Med Decision Making Course & Med Decision Making Pertinent Labs and Imaging studies reviewed. (See chart for details) This is a 63-year-old female patient presented to the ED today with bilateral shoulder pain that began 3 days and currently concentrated on her left shoulder into the left arm. Patient's cardiac workup is negative. See Heart score template She has multiple risk factors. Will be admitted for chest pain rule out. I talked to Dr. Minaya, he stated he fired this patient I spoke to Dr. Aden who accepted patient for admission (MODE MURPHY APRN) Course & Med Decision Making I was not involved in the care of this patient at 1800 on 05/08/2019. (KIARA MOFFETT MD) Dragon Disclaimer Dragon Disclaimer This electronic medical record was generated, in whole or in part, using a voice recognition dictation system. (MODE MURPHY APRN) The HEART Score for CP Pts HEART Score for Chest Pain: HEART Score for Chest Pain Response (Comments) Value History Slighlty/Non-Suspicious 0 ECG Normal 0 Age >45 - < 65 1 Risk Factors >3 Risk Factors or Hx CAD 2 Troponin < Normal Limit 0 Total 3 Risk Factors: Risk Factors: DM, Current or recent (<one month) smoker, HTN, HLP, family history of CAD, obesity. Risk Scores: Score 0 - 3: 2.5% MACE over next 6 weeks - Discharge Home Score 4 - 6: 20.3% MACE over next 6 weeks - Admit for Clinical Observation Score 7 - 10: 72.7% MACE over next 6 weeks - Early Invasive Strategies (MODE MURPHY APRN) Departure Departure Impression: Primary Impression: Chest pain Additional Impressions: HTN (hypertension) Arm pain, left Disposition: 09 ADMITTED INPATIENT Condition: STABLE Referrals: JAE MINAYA MD (PCP) Problem Qualifiers Primary Impression: Chest pain Chest pain type: unspecified Qualified Codes: R07.9 - Chest pain, unspecified Additional Impressions: HTN (hypertension) Hypertension type: unspecified Qualified Codes: I10 - Essential (primary) hypertension MODE MURPHY APRN May 08, 2019 17:40 KIARA MOFFETT MD May 12, 2019 06:28
[2019-05-08 17:44] LABS: BASO # 0.1 x10^3/uL (0.0-0.2); BASO % 1 % (0-3); EOS # 0.1 x10^3/uL (0.0-0.7); EOS % 2 % (0-3); HEMATOCRIT 32.6 % (36.0-47.0); HEMOGLOBIN 10.8 g/dL (12.0-15.5); LYMPH # 2.2 x10^3/uL (1.0-4.8); LYMPH % 43 % (24-48); MEAN CORPUSCULAR HEMOGLOBIN 30 pg (25-35); MEAN CORPUSCULAR HGB CONC 33 g/dL (31-37); MEAN CORPUSCULAR VOLUME 89 fL (79-100); MONO # 0.5 x10^3/uL (0.0-1.1); MONO % 11 % (0-9); NEUT # 2.2 x10^3/uL (1.8-7.7); NEUT % 44 % (31-73); PLATELET COUNT 308 x10^3/uL (140-400); RED BLOOD COUNT 3.64 x10^6/uL (3.50-5.40); RED CELL DISTRIBUTION WIDTH 14.8 % (11.5-14.5); WHITE BLOOD COUNT 5.1 x10^3/uL (4.0-11.0)
[2019-05-08 17:48] LABS: CALCIUM 9.3 mg/dL (8.5-10.1); CREATININE 0.7 mg/dL (0.6-1.0); GFR 101.9; POTASSIUM 3.5 mmol/L (3.5-5.1)
[2019-05-08 17:50] LABS: ALBUMIN 3.9 g/dL (3.4-5.0); ALBUMIN/GLOBULIN RATIO 1.1 (1.0-1.7); MAGNESIUM 1.9 mg/dL (1.8-2.4); TOTAL BILIRUBIN 0.6 mg/dL (0.2-1.0); TOTAL PROTEIN 7.3 g/dL (6.4-8.2)
--- NOTE | 2019-05-08 18:09 | EKG ---
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
[2019-05-08 19:11] LABS: BILIRUBIN,URINE NEGATIVE (NEG); CLARITY,URINE CLEAR; COLOR,URINE YELLOW; NITRITE,URINE NEGATIVE (NEG); PH,URINE 7.5; PROTEIN,URINE NEGATIVE (NEG-TRACE)
[2019-05-08 19:19] LABS: AMPHETAMINE/METHAMPHETAMINE NEG (NEG); BARBITURATES NEG (NEG); BENZODIAZEPINES NEG (NEG); CANNABINOIDS NEG (NEG); COCAINE NEG (NEG); METHADONE NEG (NEG); OPIATES NEG (NEG); PHENCYCLIDINE NEG (NEG)
[2019-05-08 19:25] LABS: AMORPHOUS SEDIMENT,UR PRESENT /HPF; BACTERIA,URINE FEW /HPF (0-FEW); SQUAMOUS EPITHELIAL CELL,UR MOD /LPF
[2019-05-08] MEDS ORDERED: ACETAMINOPHEN 500 MG TABLET PO ONE (20:45)
[2019-05-08] MEDS ORDERED: NITROGLYCERIN SUBLINGUAL 0.4 MG BOTTLE OF 25. SL PRN (21:45)
[2019-05-08] MEDS ORDERED: ONDANSETRON PF 4 MG/2 ML VIAL. IV PRN (21:45)
[2019-05-08 23:25] VITALS: BP 166/105
[2019-05-08] MEDS ORDERED: OMEP20CA10 PO (23:50)
[2019-05-08] MEDS ORDERED: ISOS20TA2 PO (23:50)
[2019-05-08] MEDS ORDERED: NAPR500T8 PO (23:50)
[2019-05-09] MEDS: ACETAMINOPHEN 325 MG TABLET. PO PRN ×2 (00:39→10:58)
[2019-05-09 03:00] VITALS: BP 141/65
[2019-05-09 04:16] LABS: BASO % 1 % (0-3); EOS # 0.1 x10^3/uL (0.0-0.7); EOS % 2 % (0-3); HEMATOCRIT 33.5 % (36.0-47.0); HEMOGLOBIN 10.9 g/dL (12.0-15.5); LYMPH # 2.8 x10^3/uL (1.0-4.8); LYMPH % 56 % (24-48); MEAN CORPUSCULAR HEMOGLOBIN 29 pg (25-35); MEAN CORPUSCULAR HGB CONC 33 g/dL (31-37); MEAN CORPUSCULAR VOLUME 90 fL (79-100); MONO # 0.5 x10^3/uL (0.0-1.1); MONO % 10 % (0-9); NEUT # 1.6 x10^3/uL (1.8-7.7); NEUT % 32 % (31-73); PLATELET COUNT 302 x10^3/uL (140-400); RED BLOOD COUNT 3.72 x10^6/uL (3.50-5.40); RED CELL DISTRIBUTION WIDTH 14.8 % (11.5-14.5); WHITE BLOOD COUNT 4.9 x10^3/uL (4.0-11.0)
[2019-05-09 04:37] LABS: ALBUMIN 3.7 g/dL (3.4-5.0); ALBUMIN/GLOBULIN RATIO 1.1 (1.0-1.7); CALCIUM 9.4 mg/dL (8.5-10.1); CREATININE 0.7 mg/dL (0.6-1.0); GFR 101.9; POTASSIUM 3.1 mmol/L (3.5-5.1); TOTAL BILIRUBIN 0.7 mg/dL (0.2-1.0); TOTAL PROTEIN 7.1 g/dL (6.4-8.2)
[2019-05-09 07:20] VITALS: BP 158/70
[2019-05-09 10:39] VITALS: BP 145/107
[2019-05-09] MEDS ORDERED: POTASSIUM CHLORIDE 20 MEQ TABLET.ER. PO ONE (10:45)
--- NOTE | 2019-05-09 10:49 | PDOC2 ---
GABY COOPER COMMUNITY RELATIONS DIRECTOR 05/09/19 1049: CARDIAC CONSULT DATE OF CONSULT Date of Consult DATE: 05/09/19 TIME: 10:30 REASON FOR CONSULT Reason for Consult: Chest pain and arm pain REFERRING PHYSICIAN Referring Physician: Roseanna SOURCE Source: Chart review, Patient HISTORY OF PRESENT ILLNESS HISTORY OF PRESENT ILLNESS This is a 63 yo female admitted for complains of arm pain. No chest pain per se but only arms and shoulders. Reports that 3 days ago she started having intermittent achiness to both her arms and shoulders. No focal abnormalities and actually her right arm is better and its just her left arm now but tolerable. I was able to reproduce her pain with palpation to posterior side of her shoulder. Denies any exertional CP, nor LUZ nor diaphoresis. No fever or chills and no intractable coughing. No leg swelling, palpitations. Reports no nausea or vomiting. No recent heavy lifting or falls. She takes prilosec, and takes both ibuprofen and aleve and ASA. She ran out of statin, flexeril, and aleve last week. She has a follow up with cardiology on Jun 03 and she could not tell me his name. She has been hospitalized several times both at and here in the last 6 months and has had significant cardiac workup including LHC. PAST MEDICAL HISTORY Cardiovascular: CAD, HTN, Hyperlipidemia Pulmonary: Asthma CENTRAL NERVOUS SYSTEM: Other (charbel chorea) GI: GERD Psych: Schizophrenia (?denies, not on any meds) PAST SURGICAL HISTORY Past Surgical History: CABG (1999), Other ([facility] ) FAMILY HISTORY Family History noncontributory SOCIAL HISTORY Smoke: No ALCOHOL: none Drugs: None Lives: with Family CURRENT MEDICATIONS CURRENT MEDICATIONS Current Medications Medications (Trade) Dose Ordered Sig/Jody Route PRN Reason Start Time Stop Time Status Last Admin Dose Admin Acetaminophen (Tylenol) 1,000 mg 1X ONCE PO 05/08/19 20:45 05/08/19 20:46 DC 05/08/19 20:46 Acetaminophen (Tylenol) 650 mg PRN Q4HRS PRN PO FEVER 05/08/19 21:45 05/09/19 21:44 05/09/19 00:39 ALLERGIES ALLERGIES: Coded Allergies: hydrocodone (Verified Allergy, Intermediate, Itching, 10/25/16) swelling, itching ROS Review of System 14 point ROS evaluated with pertinent positives noted per HPI PHYSICAL EXAM General: Alert, Oriented X3, Cooperative, No acute distress HEENT: Atraumatic, Mucous membr. moist/pink Lungs: Clear to auscultation, Normal air movement Heart: Regular rate (SR no ectopies), Normal S1, Normal S2, No murmurs Abdomen: Soft, No tenderness Extremities: No cyanosis, No edema Skin: No breakdown, No significant lesion Neuro: Normal speech, Sensation intact, Other (arm restlessness, chorea form) Psych/Mental Status: Mental status NL, Mood NL MUSCULOSKELETAL: Osteoarthritic changes both hands VITALS/I&O VITALS/I&O: Vital Signs Date Time Temp Pulse Resp B/P (MAP) Pulse Ox O2 Delivery O2 Flow Rate FiO2 05/09/19 08:00 Room Air 05/09/19 07:20 98.4 69 18 158/70 (99) 97 98.4 LABS Lab: Laboratory Tests Test 05/08/19 17:08 05/08/19 17:33 05/08/19 19:00 05/09/19 00:52 Prothrombin Time 12.9 SEC (11.7-14.0) Prothrombin Time INR 1.0 (0.8-1.1) Sodium Level 144 mmol/L (136-145) Potassium Level 3.5 mmol/L (3.5-5.1) Chloride Level 106 mmol/L (98-107) Carbon Dioxide Level 31 mmol/L (21-32) Anion Gap 7 (6-14) Blood Urea Nitrogen 12 mg/dL (7-20) Creatinine 0.7 mg/dL (0.6-1.0) Estimated GFR (Cockcroft-Gault) 101.9 BUN/Creatinine Ratio 17 (6-20) Glucose Level 86 mg/dL (70-99) Calcium Level 9.3 mg/dL (8.5-10.1) Magnesium Level 1.9 mg/dL (1.8-2.4) Total Bilirubin 0.6 mg/dL (0.2-1.0) Aspartate Amino Transferase (AST) 12 U/L (15-37) L Alanine Aminotransferase (ALT) 15 U/L (14-59) Alkaline Phosphatase 76 U/L (46-116) Creatine Kinase 86 U/L (26-192) Creatine Kinase MB (Mass) 0.8 ng/mL (0.0-3.6) Creatine Kinase MB Relative Index 0.9 % (0-4) Troponin I Quantitative < 0.017 ng/mL (0.000-0.055) < 0.017 ng/mL (0.000-0.055) YX-Cal-D-Type Natriuretic Peptide 375 pg/mL (0-124) H Total Protein 7.3 g/dL (6.4-8.2) Albumin 3.9 g/dL (3.4-5.0) Albumin/Globulin Ratio 1.1 (1.0-1.7) Thyroid Stimulating Hormone (TSH) 1.659 uIU/mL (0.358-3.74) White Blood Count 5.1 x10^3/uL (4.0-11.0) Red Blood Count 3.64 x10^6/uL (3.50-5.40) Hemoglobin 10.8 g/dL (12.0-15.5) L Hematocrit 32.6 % (36.0-47.0) L Mean Corpuscular Volume 89 fL (79-100) Mean Corpuscular Hemoglobin 30 pg (25-35) Mean Corpuscular Hemoglobin Concent 33 g/dL (31-37) Red Cell Distribution Width 14.8 % (11.5-14.5) H Platelet Count 308 x10^3/uL (140-400) Neutrophils (%) (Auto) 44 % (31-73) Lymphocytes (%) (Auto) 43 % (24-48) Monocytes (%) (Auto) 11 % (0-9) H Eosinophils (%) (Auto) 2 % (0-3) Basophils (%) (Auto) 1 % (0-3) Neutrophils # (Auto) 2.2 x10^3/uL (1.8-7.7) Lymphocytes # (Auto) 2.2 x10^3/uL (1.0-4.8) Monocytes # (Auto) 0.5 x10^3/uL (0.0-1.1) Eosinophils # (Auto) 0.1 x10^3/uL (0.0-0.7) Basophils # (Auto) 0.1 x10^3/uL (0.0-0.2) Urine Collection Type Unknown Urine Color Yellow Urine Clarity Clear Urine pH 7.5 Urine Specific Sears 1.025 Urine Protein Negative mg/dL (NEG-TRACE) Urine Glucose (UA) Negative mg/dL (NEG) Urine Ketones (Stick) Negative mg/dL (NEG) Urine Blood Negative (NEG) Urine Nitrite Negative (NEG) Urine Bilirubin Negative (NEG) Urine Urobilinogen Dipstick 1.0 mg/dL (0.2 mg/dL) Urine Leukocyte Esterase Small (NEG) Urine RBC 3-5 /HPF (0-2) Urine WBC 1-4 /HPF (0-4) Urine Squamous Epithelial Cells Mod /LPF Urine Amorphous Sediment Present /HPF Urine Bacteria Few /HPF (0-FEW) Urine Mucus Mod /LPF Urine Opiates Screen Neg (NEG) Urine Methadone Screen Neg (NEG) Urine Barbiturates Neg (NEG) Urine Phencyclidine Screen Neg (NEG) Urine Amphetamine/Methamphetamine Neg (NEG) Urine Benzodiazepines Screen Neg (NEG) Urine Cocaine Screen Neg (NEG) Urine Cannabinoids Screen Neg (NEG) Urine Ethyl Alcohol Neg (NEG) Test 05/09/19 03:40 White Blood Count 4.9 x10^3/uL (4.0-11.0) Red Blood Count 3.72 x10^6/uL (3.50-5.40) Hemoglobin 10.9 g/dL (12.0-15.5) L Hematocrit 33.5 % (36.0-47.0) L Mean Corpuscular Volume 90 fL (79-100) Mean Corpuscular Hemoglobin 29 pg (25-35) Mean Corpuscular Hemoglobin Concent 33 g/dL (31-37) Red Cell Distribution Width 14.8 % (11.5-14.5) H Platelet Count 302 x10^3/uL (140-400) Neutrophils (%) (Auto) 32 % (31-73) Lymphocytes (%) (Auto) 56 % (24-48) H Monocytes (%) (Auto) 10 % (0-9) H Eosinophils (%) (Auto) 2 % (0-3) Basophils (%) (Auto) 1 % (0-3) Neutrophils # (Auto) 1.6 x10^3/uL (1.8-7.7) L Lymphocytes # (Auto) 2.8 x10^3/uL (1.0-4.8) Monocytes # (Auto) 0.5 x10^3/uL (0.0-1.1) Eosinophils # (Auto) 0.1 x10^3/uL (0.0-0.7) Basophils # (Auto) 0.0 x10^3/uL (0.0-0.2) Sodium Level 144 mmol/L (136-145) Potassium Level 3.1 mmol/L (3.5-5.1) L Chloride Level 105 mmol/L (98-107) Carbon Dioxide Level 30 mmol/L (21-32) Anion Gap 9 (6-14) Blood Urea Nitrogen 10 mg/dL (7-20) Creatinine 0.7 mg/dL (0.6-1.0) Estimated GFR (Cockcroft-Gault) 101.9 BUN/Creatinine Ratio 14 (6-20) Glucose Level 95 mg/dL (70-99) Calcium Level 9.4 mg/dL (8.5-10.1) Total Bilirubin 0.7 mg/dL (0.2-1.0) Aspartate Amino Transferase (AST) 10 U/L (15-37) L Alanine Aminotransferase (ALT) 12 U/L (14-59) L Alkaline Phosphatase 75 U/L (46-116) Troponin I Quantitative < 0.017 ng/mL (0.000-0.055) Total Protein 7.1 g/dL (6.4-8.2) Albumin 3.7 g/dL (3.4-5.0) Albumin/Globulin Ratio 1.1 (1.0-1.7) Laboratory Tests 05/08/19 17:33 05/09/19 03:40 Laboratory Tests 05/08/19 17:08 05/09/19 03:40 ECHOCARDIOGRAM ECHOCARDIOGRAM Echo 04/08/18 SUMMARY 1. Normal aortic size. 2. No aortic stenosis. 3. Left ventricular hypertrophy and diastolic dysfunction. Normal wall motion and ejection fraction. 4. Normal pulmonary artery pressure. 5. Normal right ventricle size and ejection fraction. 6. No pericardial effusion. STRESS TEST STRESS TEST Stress test 01/20/19 SUMMARY/OPINION: 1. Abnormal study. Again seen is the uptake defect in the mid to apical anteroseptum and entire apex that is partially reversible. Suggestive of mixed defect of prior myocardial injury with and ischemia. Summed stress score of 11 summed rest score of 4 with a summed difference/ischemia score of 7. Compared to prior study to 2014, and 2017 studies, defects were noted at the same anatomical location and with the same extent, intensity appears only slightly more pronounced on the current study (summed stress score was 9, summed rest score was 5 with a summed difference score of 4). No major changes. 2. Again noted intermediate risk features for future cardiovascular mortality: With summed stress score of 11. 3. Nonischemic ECG response to infusion. Abnormal baseline ECG as above. 4. Normal left ventricular ejection fraction 57% HEART CATH HEART CATH Cath 01/22/19 The left main coronary artery is a large-caliber vessel which distally bifurcates into LAD and circumflex. The left main is free of angiographically- significant disease, but does have some extraluminal calcification noted. The LAD is a medium-caliber vessel which gives off 1 major diagonal branch. The proximal/ostial portion of the LAD has 50% stenosis. The proximal portion of the diagonal has 30% stenosis. There is competitive filling within the midportion of the LAD. The circumflex is a medium caliber, at least codominant vessel, which gives off 2 obtuse marginal branches. There is diffuse [id number] plaquing throughout the AV-groove segment. There is 30% stenosis at the bifurcation of the 1st obtuse marginal, involving both the AV groove segment and the obtuse marginal. In the distal AV groove, there is a 30% stenosis present. The remainder of the vessel has only mild plaquing. The right coronary artery is a small vessel which appears to be codominant, perhaps supplying the basal inferior segment. There is diff IMPRESSION: [place] multivessel coronary disease. Patent COWAN to LAD. Normal LVEDP. ASSESSMENT/PLAN ASSESSMENT/PLAN 1. Atypical CP: MSK, reproducible 2. CAD s/p single vessel CABG with COWAN to the LAD. Cath at 01/24 showed patent COWAN graft with no distal stenosis in the LAD, mild disease involving the LCX, and minimal plaquing in the RCA as noted below. Of note, she has had 5 admissions to for CP in the last 2 months with most recent at the end of March. Pain felt to be non-cardiac at the time with no further cardiac workup warranted. 3. Hypertension: Controlled 4. Hyperlipidemia: lipids on goal 5. Schizophrenia? 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 Defer to PCP Recommendations 1. Pt did ran out of flexeril, lipitor, SL NTG last week but still has imdur. Continue this upon DC 2. Pt does take aleve, ibuprofen Rx and also ASA and prilosec . Advised not to take both aleve and ibuprofen 3. No further cardaic workup warranted at this time. Follow up with [facility] cardiology as scheduled on 06/03 MELVI SCOTT MD 05/09/19 8132: CARDIAC CONSULT ASSESSMENT/PLAN ASSESSMENT/PLAN Patient seen and examined. Agree with STRIKER OUT's assessment and plan. Chest pain with atypical features and most probably musculoskeletal. Myocardial infarction has been ruled out. Recent cardiac catheterization showed patent COWAN to LAD. No further cardiac workup is indicated at this time. Follow-up with primary cardiology at [facility]. Thank you for your consultation. GABY COOPER APRN May 09, 2019 10:49 MELVI SCOTT MD May 09, 2019 16:39
--- NOTE | 2019-05-09 12:00 | NUR ---
Discharge Note: MAGUE NOVAK Discharge instructions and discharge home medications reviewed with Patient and a copy given. All questions have been answered and understanding verbalized. The following instructions and handouts were given: losartan, cyclobenzaprine Patient discharged to home or self care with self via ambulated
--- NOTE | 2019-05-09 12:17 | SSS ---
ADMIT DATE: 05/09/2019 CHIEF COMPLAINT: Right arm pain. 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 She also has some other issues and is supposed to be on about 10 different prescriptions, but I think she ran out of all and all the bottles were empty. She apparently also had LA back in 1999. I discussed the case with ER physician. The patient was admitted overnight for observation. We did consult Cardiology, they saw her this morning I think, she states that she is cleared to go. I wrote all new prescriptions for her. We plan to discharge this afternoon. PAST MEDICAL HISTORY: Noncompliance, Rani's chorea, asthma, hypertension, hyperlipidemia and coronary artery bypass surgery. ALLERGIES: HYDROCODONE. FAMILY HISTORY: Coronary artery disease. SOCIAL HISTORY: She does not drink, smoke or take drugs. MEDICATIONS: Reviewed, please refer to the MRAD. REVIEW OF SYSTEMS: GENERAL: No history of weight change, weakness or fevers. SKIN: No bruising, hair changes or rashes. EYES: No blurred, double or loss of vision. NOSE AND THROAT: No history of nosebleeds, hoarseness or sore throat. HEART: No history of palpitations, chest pain or shortness of breath on exertion. LUNGS: Denies cough, hemoptysis, wheezing or shortness of breath. GASTROINTESTINAL: Denies changes in appetite, nausea, vomiting, diarrhea or constipation. GENITOURINARY: No history of frequency, urgency, hesitancy or nocturia. NEUROLOGIC: Denies history of numbness, tingling, tremor or weakness. PSYCHIATRIC: No history of panic, anxiety or depression. ENDOCRINE: No history of heat or cold intolerance, polyuria or polydipsia. EXTREMITIES: Denies muscle weakness, joint pain, pain on walking or stiffness. PHYSICAL EXAMINATION: VITALS: Within normal limits and are stable. GENERAL: No apparent distress. Alert and oriented. HEENT: Head is normocephalic, atraumatic, pupils were equally round and reactive to light and accommodation. NECK: Supple, no JVD, no thyromegaly was noted. LUNGS: Clear to auscultation in all lung sanchez without rhonchi or wheezing. HEART: RRR, S1, S2 present. Peripheral pulses intact, no obvious murmurs were noted. ABDOMEN: Soft, nontender. Positive bowel sounds no organomegaly, normal bowel sounds. EXTREMITIES: Without any cyanosis, clubbing, or edema. Pedal pulses intact, Homans sign is negative. NEUROLOGIC: She has some shaking from her [place]'s chorea. I did walk her, she was able to walk slowly. PSYCHIATRIC: Normal affect, normal mood. Stable. SKIN: No ulcerations or rashes, good skin turgor, no jaundice. VASCULAR: Good capillary refill, neurovascular bundle appears to be intact. LABORATORY DATA: Troponins are negative. ASSESSMENT AND PLAN: Atypical chest pain in a middle-aged female with above noted comorbidities. The patient was seen by Cardiology as I understand she is cleared for discharge. I wrote all new prescriptions for her. DISPOSITION: Home. ACTIVITY: As tolerated. DIET: Low sodium. MEDICATIONS: Please see the MRAD. TOTAL TIME: 32 minutes. OFELIA ROMERO DO DR: CLEO/shelbie JOB#: [id number] / [id number]
== END 2019-05-09 12:10 | disposition home or self-care (01) | DRG 392 ==
LOC: ER 16:32 → 2 NORTH 20:53
PROVIDERS: ADMIT Family Medicine; ATTEND Family Medicine
DX: K21.9 Gastro-esophageal reflux disease without esophagitis (principal); G10 Huntington's disease; E78.00 Pure hypercholesterolemia, unspecified; E78.5 Hyperlipidemia, unspecified; F20.9 Schizophrenia, unspecified; J45.909 Unspecified asthma, uncomplicated; I10 Essential (primary) hypertension; I25.10 Atherosclerotic heart disease of native coronary artery without angina pectoris; I25.2 Old myocardial infarction; Z82.49 Family history of ischemic heart disease and other diseases of the circulatory system; Z91.19 Patient's noncompliance with other medical treatment and regimen; Z95.1 Presence of aortocoronary bypass graft; Z88.8 Allergy status to other drugs, medicaments and biological substances; Z79.899 Other long term (current) drug therapy
CPT/HCPCS: 36415; 71045; 80053; 80307; 81001; 82553; 83735; 83880; 84443; 84484; 85025; 85610; 93005; 99285-25; G0378

== ENCOUNTER 2019-09-05 10:39 | Observation (INO) | payer OTHER ==
[~2019-09-05] VITALS: Ht 157.5 cm; Wt 60.0 kg
[~2019-09-05 10:39] MED LIST changes: +ISOS20TA2 PO; +NAPR500T8 PO; +OMEP20CA16 PO
--- NOTE | 2019-09-05 11:19 | RAD ---
EXAM: Chest, single view. HISTORY: Chest pain. COMPARISON: 05/08/2019 FINDINGS: A frontal view of the chest is obtained. There is no infiltrate, pleural effusion or pneumothorax. There is stable enlargement of the cardiac silhouette and evidence of prior coronary artery bypass grafting. IMPRESSION: No acute pulmonary finding. Electronically signed by: Kaitlynn Jordan MD (09/05/2019 11:16 AM) [facility] [place]
--- NOTE | 2019-09-05 11:23 | PHYS DOC ---
Past Medical History Past Medical History: Asthma, CAD, High Cholesterol, Hypertension, [place] Past Surgical History: Coronary Bypass Surgery, , Other Additional Past Surgical Histo: 're-did my valves',OPEN HEART, bypass in L leg Alcohol Use: None Drug Use: None Adult General Chief Complaint Chief Complaint: CHEST PAIN HPI HPI Patient is a 64-year-old female, who unfortunately has a history of [place]'s chorea, also with a history of coronary artery disease, post CABG, who presents to the emergency department for evaluation of left-sided chest pressure, which has been constant for the past 2 days. She denies any other associated symptomshas not had any shortness of breath, diaphoresis, nausea, or vomiting. She denies any dizziness or lightheadedness, numbness, or new weakness. There are no alleviating, or exacerbating factors to her symptoms. She is somewhat of a limited historian. Assuming a negative troponin, the patient's HEART score is a 4 Review of Systems Review of Systems Constitutional: Denies fever or chills [] Eyes: Denies change in visual acuity, redness, or eye pain [] HENT: Denies nasal congestion or sore throat [] Respiratory: Denies cough or shortness of breath [] Cardiovascular: No additional information not addressed in HPI [] GI: Denies abdominal pain, nausea, vomiting, bloody stools or diarrhea [] : Denies dysuria or hematuria [] Musculoskeletal: Denies back pain or joint pain [] Integument: Denies rash or skin lesions [] Neurologic: Denies headache, focal weakness or sensory changes [] Endocrine: Denies polyuria or polydipsia [] All other systems were reviewed and found to be within normal limits, except as documented in this note. Current Medications Current Medications Current Medications Medications (Trade) Dose Ordered Sig/Jody Start Time Stop Time Status Last Admin Dose Admin Aspirin (Children'S Aspirin) 324 mg 1X ONCE 09/05/19 11:30 09/05/19 11:31 DC 09/05/19 11:41 324 MG Nitroglycerin (Nitro-Bid Oint) 1 inch 1X ONCE 09/05/19 11:30 09/05/19 11:31 DC 09/05/19 11:41 1 INCH Allergies Allergies Allergies Coded Allergies Type Severity Reaction Last Updated Verified hydrocodone Allergy Intermediate Itching 10/25/16 Yes Physical Exam Physical Exam PHYSICAL EXAM: CONSTITUTIONAL: Well developed, well nourished HEAD: normocephalic, atraumatic EENT: PERRL, EOMI. Conjunctivae normal color, sclerae non-icteric; moist mucous membranes. NECK: Supple, non-tender; no meningismus. LUNGS: Lungs CTA, breathing even and unlabored. Normal air movement. HEART: Regular rate and rhythm, no murmur CHEST: No deformity; non-tender ABDOMEN: The abdomen is soft, and non-tender, no masses or bruits. EXTREM: Normal ROM; no deformity, no calf tenderness. Normal pulses palpable in all extremities. There is no pedal edema. SKIN: No rash; no diaphoresis NEURO: Alert; normal speech and cognition; CN's grossly intact; strength grossly intact without focal deficit. There are choreiform movements, consistent with the patient's history of Rani's chorea. BACK: No CVA TTP. Current Patient Data Vital Signs Vital Signs Date Time Temp Pulse Resp B/P (MAP) Pulse Ox O2 Delivery O2 Flow Rate FiO2 09/05/19 11:41 64 136/60 09/05/19 10:47 98.3 20 98 Room Air 98.3 Lab Values Laboratory Tests Test 09/05/19 11:50 White Blood Count 5.4 x10^3/uL (4.0-11.0) Red Blood Count 4.26 x10^6/uL (3.50-5.40) Hemoglobin 12.2 g/dL (12.0-15.5) Hematocrit 37.7 % (36.0-47.0) Mean Corpuscular Volume 88 fL (79-100) Mean Corpuscular Hemoglobin 29 pg (25-35) Mean Corpuscular Hemoglobin Concent 32 g/dL (31-37) Red Cell Distribution Width 15.0 % (11.5-14.5) H Platelet Count 271 x10^3/uL (140-400) Neutrophils (%) (Auto) 36 % (31-73) Lymphocytes (%) (Auto) 55 % (24-48) H Monocytes (%) (Auto) 8 % (0-9) Eosinophils (%) (Auto) 1 % (0-3) Basophils (%) (Auto) 1 % (0-3) Neutrophils # (Auto) 1.9 x10^3/uL (1.8-7.7) Lymphocytes # (Auto) 2.9 x10^3/uL (1.0-4.8) Monocytes # (Auto) 0.4 x10^3/uL (0.0-1.1) Eosinophils # (Auto) 0.1 x10^3/uL (0.0-0.7) Basophils # (Auto) 0.0 x10^3/uL (0.0-0.2) Prothrombin Time 12.8 SEC (11.7-14.0) Prothrombin Time INR 1.0 (0.8-1.1) Sodium Level 144 mmol/L (136-145) Potassium Level 3.3 mmol/L (3.5-5.1) L Chloride Level 105 mmol/L (98-107) Carbon Dioxide Level 29 mmol/L (21-32) Anion Gap 10 (6-14) Blood Urea Nitrogen 14 mg/dL (7-20) Creatinine 0.6 mg/dL (0.6-1.0) Estimated GFR (Cockcroft-Gault) 121.4 BUN/Creatinine Ratio 23 (6-20) H Glucose Level 94 mg/dL (70-99) Calcium Level 9.0 mg/dL (8.5-10.1) Magnesium Level 2.0 mg/dL (1.8-2.4) Total Bilirubin 0.7 mg/dL (0.2-1.0) Aspartate Amino Transferase (AST) 10 U/L (15-37) L Alanine Aminotransferase (ALT) 9 U/L (14-59) L Alkaline Phosphatase 85 U/L (46-116) Troponin I Quantitative < 0.017 ng/mL (0.000-0.055) HF-Wyw-S-Type Natriuretic Peptide 445 pg/mL (0-124) H Total Protein 6.9 g/dL (6.4-8.2) Albumin 3.9 g/dL (3.4-5.0) Albumin/Globulin Ratio 1.3 (1.0-1.7) Laboratory Tests 09/05/19 11:50 Laboratory Tests 09/05/19 11:50 EKG EKG Normal sinus rhythm at a rate of 54 beats for minute, left axis deviation, normal intervals, there is anterior/lateral T-wave inversion, and nonspecific ST/T changes, not significantly changed compared to patient's prior EKG.[] Radiology/Procedures Radiology/Procedures PROCEDURE: PORTABLE CHEST 1V EXAM: Chest, single view. HISTORY: Chest pain. COMPARISON: 05/08/2019 FINDINGS: A frontal view of the chest is obtained. There is no infiltrate, pleural effusion or pneumothorax. There is stable enlargement of the cardiac silhouette and evidence of prior coronary artery bypass grafting. IMPRESSION: No acute pulmonary finding. [] Course & Med Decision Making Course & Med Decision Making Pertinent Labs and Imaging studies reviewed. (See chart for details) []The patient's condition remains stable. I spoke with the hospitalist, who accepted the patient to the hospital for further evaluation and treatment. Dragon Disclaimer Dragon Disclaimer This electronic medical record was generated, in whole or in part, using a voice recognition dictation system. Departure Departure Impression: Primary Impression: Chest pain Additional Impression: Unstable angina Disposition: ADMITTED INPATIENT Admitting Physician: MARISOL Condition: STABLE Referrals: UNKNOWN PCP NAME (PCP) Problem Qualifiers JAE HINES MD Sep 05, 2019 11:23
[2019-09-05] MEDS ORDERED: ASPIRIN CHEWABLE 81 MG TABLET. PO ONE (11:30)
[2019-09-05] MEDS ORDERED: NITROGLYCERIN OINT 1 GM PACKET. TP ONE (11:30)
--- NOTE | 2019-09-05 11:40 | EKG ---
[facility] [address] [place] [address] Test Date: 2019-09-05 Test Time: 11:13:59 Pat Name: ADE NOVAK Department: Room: Gender: F Him Coder: : 1955 Requested By: JAE HINES Order Number: [id number] Reading MD: Measurements Intervals [place] Rate: 54 P: 58 [place]: 192 QRS: -6 QRSD: 84 T: 97 QT: 446 QTc: 424 Interpretive Statements SINUS RHYTHM LEFTWARD AXIS LVH WITH REPOLARIZATION ABNORMALITY CONSIDER RIGHT VENTRICULAR HYPERTROPHY QRS(T) CONTOUR ABNORMALITY CONSIDER ANTEROSEPTAL MYOCARDIAL DAMAGE ABNORMAL ECG No previous ECG available for comparison
--- NOTE | 2019-09-05 11:44 | EKG ---
[facility] [address] [place] [address] Test Date: 2019-09-05 Test Time: 10:47:31 Pat Name: ADE NOVAK Department: Room: Gender: F Billing Spec: : 1955 Requested By: JAE HINES Order Number: [id number] Reading MD: Measurements Intervals [place] Rate: 54 P: 100 RI: 178 QRS: -8 QRSD: 82 T: 62 QT: 442 QTc: 420 Interpretive Statements SINUS RHYTHM LEFT ATRIAL ABNORMALITY LEFTWARD AXIS CONSIDER RIGHT VENTRICULAR HYPERTROPHY ST & T ABNORMALITY, CONSIDER ANTERIOR ISCHEMIA OR LEFT VENTRICULAR STRAIN T ABNORMALITY IN LATERAL LEADS ABNORMAL ECG No previous ECG available for comparison
[2019-09-05 12:04] LABS: BASO % 1 % (0-3); EOS # 0.1 x10^3/uL (0.0-0.7); EOS % 1 % (0-3); HEMATOCRIT 37.7 % (36.0-47.0); HEMOGLOBIN 12.2 g/dL (12.0-15.5); LYMPH # 2.9 x10^3/uL (1.0-4.8); LYMPH % 55 % (24-48); MEAN CORPUSCULAR HEMOGLOBIN 29 pg (25-35); MEAN CORPUSCULAR HGB CONC 32 g/dL (31-37); MEAN CORPUSCULAR VOLUME 88 fL (79-100); MONO # 0.4 x10^3/uL (0.0-1.1); MONO % 8 % (0-9); NEUT # 1.9 x10^3/uL (1.8-7.7); NEUT % 36 % (31-73); PLATELET COUNT 271 x10^3/uL (140-400); RED BLOOD COUNT 4.26 x10^6/uL (3.50-5.40); WHITE BLOOD COUNT 5.4 x10^3/uL (4.0-11.0)
[2019-09-05 12:15] LABS: PROTHROMBIN TIME PATIENT 12.8 SEC (11.7-14.0)
[2019-09-05 12:19] LABS: CREATININE 0.6 mg/dL (0.6-1.0); GFR 121.4; POTASSIUM 3.3 mmol/L (3.5-5.1)
[2019-09-05 12:24] LABS: ALBUMIN 3.9 g/dL (3.4-5.0); ALBUMIN/GLOBULIN RATIO 1.3 (1.0-1.7); TOTAL BILIRUBIN 0.7 mg/dL (0.2-1.0); TOTAL PROTEIN 6.9 g/dL (6.4-8.2)
--- NOTE | 2019-09-05 13:41 | PDOC1 ---
History and Physical Date of Admission Date of Admission DATE: 09/05/19 TIME: 13:41 Identification/Chief Complaint Chief Complaint SEEN IN ER WITH CHEST DISCOMFORT history of coronary artery disease, post CABG, who presents to the emergency department for evaluation of left-sided chest pressure, which has been constant for the past 2 days. She denies any other associated symptomshas not had any shortness of breath, diaphoresis, nausea, or vomiting. She denies any dizziness or lightheadedness, numbness, or new weakness. There are no alleviating, or exacerbating factors to her symptoms. She is somewhat of a limited historian patient's HEART score is a 4 CATH AT [facility] 10 MO AGO C/W noncritical diffuse CAD Past Medical History Past Medical History Past Medical History Past Medical History Past Medical History: Asthma, CAD, High Cholesterol, Hypertension, [place] Past Surgical History: Coronary Bypass Surgery, , Other Additional Past Surgical Histo: 're-did my valves',OPEN HEART, bypass in L leg Alcohol Use: None Drug Use: None fhx htn Cardiovascular: CAD, HTN, Hyperlipidemia Pulmonary: Asthma CENTRAL NERVOUS SYSTEM: Other GI: GERD Heme/Onc: No pertinent hx Psych: Anxiety, Schizophrenia Renal/: No pertinent hx Past Surgical History Past Surgical History: CABG, Other Family History Family History: Asthma, High Cholestrol, Hypertension Social History Smoke: Quit ALCOHOL: none Drugs: None Current Problem List Problem List Problems Medical Problems: (1) Chest pain Status: Acute (2) Unstable angina Status: Acute Current Medications Current Medications Current Medications Aspirin (Children'S Aspirin) 324 mg 1X ONCE PO Last administered on 09/05/19at 11:41; Start 09/05/19 at 11:30; Stop 09/05/19 at 11:31; Status DC Nitroglycerin (Nitro-Bid Oint) 1 inch 1X ONCE TP Last administered on at 11:41; Start 09/05/19 at 11:30; Stop 09/05/19 at 11:31; Status DC Active Scripts Active NITROGLYCERIN SubLingual (Nitroglycerin) 0.4 Mg Tab.subl 0.4 Mg SL PRN Q5MIN PRN Ibuprofen 600 Mg Tablet 600 Mg PO PRN Q6HRS PRN take with food or milk Reported Isosorbide Mononitrate 20 Mg Tablet 20 Mg PO BID Omeprazole 20 Mg Capsule.dr 1 Cap PO DAILY Naproxen 500 Mg Tablet. 1 Tab PO BID Cyclobenzaprine Hcl 10 Mg Tablet 1 Tab PO PRN TID PRN Losartan Potassium (Losartan Potassium) 25 Mg Tablet 25 Mg PO DAILY Atorvastatin Calcium 40 Mg Tablet 1 Tab PO QHS Aspirin 81 Mg Tab.chew 1 Tab PO DAILY Tylenol (Acetaminophen) 325 Mg Tablet 650 Mg PO PRN Q4HRS PRN Allergies Allergies: Coded Allergies: hydrocodone (Verified Allergy, Intermediate, Itching, 10/25/16) swelling, itching ROS Review of System Review of Systems Review of Systems Constitutional: Denies fever or chills [] Eyes: Denies change in visual acuity, redness, or eye pain [] HENT: Denies nasal congestion or sore throat [] Respiratory: Denies cough or shortness of breath [] Cardiovascular: No additional information not addressed in HPI [] GI: Denies abdominal pain, nausea, vomiting, bloody stools or diarrhea [] : Denies dysuria or hematuria [] Musculoskeletal: Denies back pain or joint pain [] Integument: Denies rash or skin lesions [] Neurologic: Denies headache, focal weakness or sensory changes [] Endocrine: Denies polyuria or polydipsia [] 14 PT systems were reviewed and found to be within normal limits, except as documented General: YES: Fatigue Hematological and Lymphatic: No: Bleeding Problems, Blood Clots, Blood Transfusions, Brusing, Night Sweats, Pallor, Swollen Lymph Nodes, Other Respiratory: No: Cough, Hemoptysis, Orthopnea, Pleuritic Pain, Shortness of breath, SOB with excertion, Sputum Changes, Stridor, Tachypnea, Wheezing, Other Cardiovascular: yes Chest Pain Gastrointestinal: No Nausea, No Vomiting, No Abdominal Pain, No Diarrhea, No Constipation, No Melena, No Hematochezia, No Other Musculoskeletal: Yes Gait Disturbance, Yes Joint Stiffness Neurological: Yes Behavorial Changes, Yes Gait Disturbance Physical Exam Physical Exam Physical Exam Physical Exam PHYSICAL EXAM: CONSTITUTIONAL: Well developed, well nourished HEAD: normocephalic, atraumatic EENT: PERRL, EOMI. Conjunctivae normal color, sclerae non-icteric; moist mucous membranes. NECK: Supple, non-tender; no meningismus. LUNGS: Lungs CTA, breathing even and unlabored. Normal air movement. HEART: Regular rate and rhythm, no murmur CHEST: No deformity; non-tender ABDOMEN: The abdomen is soft, and non-tender, no masses or bruits. EXTREM: Normal ROM; no deformity, no calf tenderness. Normal pulses palpable in all extremities. There is no pedal edema. SKIN: No rash; no diaphoresis NEURO: Alert; normal speech and cognition; CN's grossly intact; strength grossly intact without focal deficit. There are choreiform movements, consistent with the patient's history of Rani's chorea. BACK: No CVA TTP. General: Alert, Oriented X3, Cooperative, No acute distress HEENT: PERRLA Lungs: Clear to auscultation, Normal air movement Heart: RRR Breasts: Normal, Rt breast nml w/o mass, Lt breast nml w/o mass, Nipples normal, Not examined Abdomen: Normal bowel sounds, Soft, No tenderness, No hepatosplenomegaly, No ma sses Male Genitals Exam: normal genitalia, normal prostate Rectal Exam: not examined PELVIC: Examination not indicated Extremities: No clubbing, No cyanosis, No edema, Normal pulses, No tenderness/swelling Skin: No rashes, No breakdown, No significant lesion Neuro: Normal gait, Normal speech, Strength at 5/5 X4 ext, Normal tone, Sensation intact, Cranial nerves 3-12 NL, Reflexes 2+ Psych/Mental Status: Mental status NL, Mood NL Vitals Vitals Vital Signs Date Time Temp Pulse Resp B/P (MAP) Pulse Ox O2 Delivery O2 Flow Rate FiO2 09/05/19 11:41 64 136/60 09/05/19 10:47 98.3 20 98 Room Air 98.3 Labs Labs Laboratory Tests Test 09/05/19 11:50 White Blood Count 5.4 x10^3/uL (4.0-11.0) Red Blood Count 4.26 x10^6/uL (3.50-5.40) Hemoglobin 12.2 g/dL (12.0-15.5) Hematocrit 37.7 % (36.0-47.0) Mean Corpuscular Volume 88 fL (79-100) Mean Corpuscular Hemoglobin 29 pg (25-35) Mean Corpuscular Hemoglobin Concent 32 g/dL (31-37) Red Cell Distribution Width 15.0 % (11.5-14.5) Platelet Count 271 x10^3/uL (140-400) Neutrophils (%) (Auto) 36 % (31-73) Lymphocytes (%) (Auto) 55 % (24-48) Monocytes (%) (Auto) 8 % (0-9) Eosinophils (%) (Auto) 1 % (0-3) Basophils (%) (Auto) 1 % (0-3) Neutrophils # (Auto) 1.9 x10^3/uL (1.8-7.7) Lymphocytes # (Auto) 2.9 x10^3/uL (1.0-4.8) Monocytes # (Auto) 0.4 x10^3/uL (0.0-1.1) Eosinophils # (Auto) 0.1 x10^3/uL (0.0-0.7) Basophils # (Auto) 0.0 x10^3/uL (0.0-0.2) Prothrombin Time 12.8 SEC (11.7-14.0) Prothromb Time International Ratio 1.0 (0.8-1.1) Sodium Level 144 mmol/L (136-145) Potassium Level 3.3 mmol/L (3.5-5.1) Chloride Level 105 mmol/L (98-107) Carbon Dioxide Level 29 mmol/L (21-32) Anion Gap 10 (6-14) Blood Urea Nitrogen 14 mg/dL (7-20) Creatinine 0.6 mg/dL (0.6-1.0) Estimated GFR (Cockcroft-Gault) 121.4 BUN/Creatinine Ratio 23 (6-20) Glucose Level 94 mg/dL (70-99) Calcium Level 9.0 mg/dL (8.5-10.1) Magnesium Level 2.0 mg/dL (1.8-2.4) Total Bilirubin 0.7 mg/dL (0.2-1.0) Aspartate Amino Transf (AST/SGOT) 10 U/L (15-37) Alanine Aminotransferase (ALT/SGPT) 9 U/L (14-59) Alkaline Phosphatase 85 U/L (46-116) Troponin I Quantitative < 0.017 ng/mL (0.000-0.055) AM-Jmd-D-Type Natriuretic Peptide 445 pg/mL (0-124) Total Protein 6.9 g/dL (6.4-8.2) Albumin 3.9 g/dL (3.4-5.0) Albumin/Globulin Ratio 1.3 (1.0-1.7) Laboratory Tests Test 09/05/19 11:50 White Blood Count 5.4 x10^3/uL (4.0-11.0) Red Blood Count 4.26 x10^6/uL (3.50-5.40) Hemoglobin 12.2 g/dL (12.0-15.5) Hematocrit 37.7 % (36.0-47.0) Mean Corpuscular Volume 88 fL (79-100) Mean Corpuscular Hemoglobin 29 pg (25-35) Mean Corpuscular Hemoglobin Concent 32 g/dL (31-37) Red Cell Distribution Width 15.0 % (11.5-14.5) Platelet Count 271 x10^3/uL (140-400) Neutrophils (%) (Auto) 36 % (31-73) Lymphocytes (%) (Auto) 55 % (24-48) Monocytes (%) (Auto) 8 % (0-9) Eosinophils (%) (Auto) 1 % (0-3) Basophils (%) (Auto) 1 % (0-3) Neutrophils # (Auto) 1.9 x10^3/uL (1.8-7.7) Lymphocytes # (Auto) 2.9 x10^3/uL (1.0-4.8) Monocytes # (Auto) 0.4 x10^3/uL (0.0-1.1) Eosinophils # (Auto) 0.1 x10^3/uL (0.0-0.7) Basophils # (Auto) 0.0 x10^3/uL (0.0-0.2) Prothrombin Time 12.8 SEC (11.7-14.0) Prothromb Time International Ratio 1.0 (0.8-1.1) Sodium Level 144 mmol/L (136-145) Potassium Level 3.3 mmol/L (3.5-5.1) Chloride Level 105 mmol/L (98-107) Carbon Dioxide Level 29 mmol/L (21-32) Anion Gap 10 (6-14) Blood Urea Nitrogen 14 mg/dL (7-20) Creatinine 0.6 mg/dL (0.6-1.0) Estimated GFR (Cockcroft-Gault) 121.4 BUN/Creatinine Ratio 23 (6-20) Glucose Level 94 mg/dL (70-99) Calcium Level 9.0 mg/dL (8.5-10.1) Magnesium Level 2.0 mg/dL (1.8-2.4) Total Bilirubin 0.7 mg/dL (0.2-1.0) Aspartate Amino Transf (AST/SGOT) 10 U/L (15-37) Alanine Aminotransferase (ALT/SGPT) 9 U/L (14-59) Alkaline Phosphatase 85 U/L (46-116) Troponin I Quantitative < 0.017 ng/mL (0.000-0.055) EC-Hup-S-Type Natriuretic Peptide 445 pg/mL (0-124) Total Protein 6.9 g/dL (6.4-8.2) Albumin 3.9 g/dL (3.4-5.0) Albumin/Globulin Ratio 1.3 (1.0-1.7) Images Images EXAM: Chest, single view. HISTORY: Chest pain. COMPARISON: 05/08/2019 FINDINGS: A frontal view of the chest is obtained. There is no infiltrate, pleural effusion or pneumothorax. There is stable enlargement of the cardiac silhouette and evidence of prior coronary artery bypass grafting. IMPRESSION: No acute pulmonary finding. Electronically signed by: Kaitlynn Jordan MD (09/05/2019 11:16 AM) [facility] [place] DICTATED and SIGNED BY: KAITLYNN JORDAN MD DATE: 09/05/19 1116 VTE Prophylaxis Ordered VTE Prophylaxis Devices: No VTE Pharmacological Prophylaxi: Yes Assessment/Plan Assessment/Plan IMPRESSION Chest pain, angina, UNSTABLE history of CAD recent cardiac cath at HX Schizophrenia hypokalemia HX [place] chorea, on disability for psych PLAN ADMIT CARDIOLOGY CONSULT SERIAL TROPONIN I [facility] RECORDS NEEDED, REQUESTED D/W ER CVC BED DVT PROPHYLAXIS KAITLIN HERMAN MD Sep 05, 2019 13:41
[2019-09-05] MEDS ORDERED: METO25TA4 PO (16:15)
[2019-09-05] MEDS ORDERED: TRAZ-123 PO (16:15)
[2019-09-05] MEDS ORDERED: CLON0.5T4 PO (16:15)
[2019-09-05] MEDS ORDERED: ISOS30TA4 PO (16:15)
--- NOTE | 2019-09-05 16:32 | PDOC2 ---
MATA SAINI TIME CLOCK INSPECTOR 09/05/19 1632: CARDIAC CONSULT DATE OF CONSULT Date of Consult DATE: 09/05/19 TIME: 16:13 REASON FOR CONSULT Reason for Consult: Chest pain REFERRING PHYSICIAN Referring Physician: Dr. Bass SOURCE Source: Chart review, Patient HISTORY OF PRESENT ILLNESS HISTORY OF PRESENT ILLNESS This is a 64 yo female, with a history of CAD s/p CABG, who presented with two- day history of left chest pain. Describes as aching. No associated dizziness, diaphoresis, shortness of breath, or nausea/vomiting. Pain seems to be worse with apply pressure to the left chest. Patient has had this pain multiple times in the past. Underwent cardiac cath without intervention 01/2019 at . Was also seen earlier this month at for same pain. Was felt to be atypical. Imdur uptitrated. Was to f/u with primary shoe worker. PAST MEDICAL HISTORY Past Medical History Cardiovascular: CAD, HTN, Hyperlipidemia Pulmonary: Asthma CENTRAL NERVOUS SYSTEM: Other (charbel chorea) GI: GERD Psych: Schizophrenia (?denies, not on any meds) PAST SURGICAL HISTORY Past Surgical History CABG (1999), Other ([facility] ) FAMILY HISTORY Family History: Other (noncontributory ) SOCIAL HISTORY Social History Smoke: No ALCOHOL: none Drugs: None Lives: with Family CURRENT MEDICATIONS CURRENT MEDICATIONS Current Medications Medications (Trade) Dose Ordered Sig/Jody Route PRN Reason Start Time Stop Time Status Last Admin Dose Admin Aspirin (Children'S Aspirin) 324 mg 1X ONCE PO 09/05/19 11:30 09/05/19 11:31 DC 09/05/19 11:41 Nitroglycerin (Nitro-Bid Oint) 1 inch 1X ONCE TP 09/05/19 11:30 09/05/19 11:31 DC 09/05/19 11:41 ALLERGIES ALLERGIES: Coded Allergies: hydrocodone (Verified Allergy, Intermediate, Itching, 10/25/16) swelling, itching ROS Review of System 14 point ROS conducted with pertinent positives noted above in HPI PHYSICAL EXAM PHYSICAL EXAM General: Alert, Oriented X3, Cooperative, No acute distress HEENT: Atraumatic, Mucous membr. moist/pink Lungs: Clear to auscultation, Normal air movement, left chest tenderness upon palpation Heart: Regular rate (SR no ectopies), Normal S1, Normal S2, No murmurs Abdomen: Soft, No tenderness Extremities: No cyanosis, No edema Skin: No breakdown, No significant lesion Neuro: Normal speech, Sensation intact, Other (arm restlessness, chorea form) Psych/Mental Status: Mental status NL, Mood NL MUSCULOSKELETAL: Osteoarthritic changes both hands VITALS/I&O VITALS/I&O: Vital Signs Date Time Temp Pulse Resp B/P (MAP) Pulse Ox O2 Delivery O2 Flow Rate FiO2 09/05/19 15:18 52 16 117/61 (79) 98 Room Air 09/05/19 10:47 98.3 98.3 LABS Lab: Laboratory Tests Test 09/05/19 11:50 White Blood Count 5.4 x10^3/uL (4.0-11.0) Red Blood Count 4.26 x10^6/uL (3.50-5.40) Hemoglobin 12.2 g/dL (12.0-15.5) Hematocrit 37.7 % (36.0-47.0) Mean Corpuscular Volume 88 fL (79-100) Mean Corpuscular Hemoglobin 29 pg (25-35) Mean Corpuscular Hemoglobin Concent 32 g/dL (31-37) Red Cell Distribution Width 15.0 % (11.5-14.5) H Platelet Count 271 x10^3/uL (140-400) Neutrophils (%) (Auto) 36 % (31-73) Lymphocytes (%) (Auto) 55 % (24-48) H Monocytes (%) (Auto) 8 % (0-9) Eosinophils (%) (Auto) 1 % (0-3) Basophils (%) (Auto) 1 % (0-3) Neutrophils # (Auto) 1.9 x10^3/uL (1.8-7.7) Lymphocytes # (Auto) 2.9 x10^3/uL (1.0-4.8) Monocytes # (Auto) 0.4 x10^3/uL (0.0-1.1) Eosinophils # (Auto) 0.1 x10^3/uL (0.0-0.7) Basophils # (Auto) 0.0 x10^3/uL (0.0-0.2) Prothrombin Time 12.8 SEC (11.7-14.0) Prothrombin Time INR 1.0 (0.8-1.1) Sodium Level 144 mmol/L (136-145) Potassium Level 3.3 mmol/L (3.5-5.1) L Chloride Level 105 mmol/L (98-107) Carbon Dioxide Level 29 mmol/L (21-32) Anion Gap 10 (6-14) Blood Urea Nitrogen 14 mg/dL (7-20) Creatinine 0.6 mg/dL (0.6-1.0) Estimated GFR (Cockcroft-Gault) 121.4 BUN/Creatinine Ratio 23 (6-20) H Glucose Level 94 mg/dL (70-99) Calcium Level 9.0 mg/dL (8.5-10.1) Magnesium Level 2.0 mg/dL (1.8-2.4) Total Bilirubin 0.7 mg/dL (0.2-1.0) Aspartate Amino Transferase (AST) 10 U/L (15-37) L Alanine Aminotransferase (ALT) 9 U/L (14-59) L Alkaline Phosphatase 85 U/L (46-116) Troponin I Quantitative < 0.017 ng/mL (0.000-0.055) JH-Hos-V-Type Natriuretic Peptide 445 pg/mL (0-124) H Total Protein 6.9 g/dL (6.4-8.2) Albumin 3.9 g/dL (3.4-5.0) Albumin/Globulin Ratio 1.3 (1.0-1.7) Laboratory Tests 09/05/19 11:50 Laboratory Tests 09/05/19 11:50 ECHOCARDIOGRAM ECHOCARDIOGRAM Echo 04/08/18 SUMMARY 1. Normal aortic size. 2. No aortic stenosis. 3. Left ventricular hypertrophy and diastolic dysfunction. Normal wall motion and ejection fraction. 4. Normal pulmonary artery pressure. 5. Normal right ventricle size and ejection fraction. 6. No pericardial effusion. STRESS TEST STRESS TEST Stress test 01/20/19 SUMMARY/OPINION: 1. Abnormal study. Again seen is the uptake defect in the mid to apical anteroseptum and entire apex that is partially reversible. Suggestive of mixed defect of prior myocardial injury with and ischemia. Summed stress score of 11 summed rest score of 4 with a summed difference/ischemia score of 7. Compared to prior study to 2014, and 2017 studies, defects were noted at the same anatomical location and with the same extent, intensity appears only slightly more pronounced on the current study (summed stress score was 9, summed rest score was 5 with a summed difference score of 4). No major changes. 2. Again noted intermediate risk features for future cardiovascular mortality: With summed stress score of 11. 3. Nonischemic ECG response to infusion. Abnormal baseline ECG as above. 4. Normal left ventricular ejection fraction 57% HEART CATH HEART CATH Cath 01/22/19 The left main coronary artery is a large-caliber vessel which distally bifurcates into LAD and circumflex. The left main is free of angiographically- significant disease, but does have some extraluminal calcification noted. The LAD is a medium-caliber vessel which gives off 1 major diagonal branch. The proximal/ostial portion of the LAD has 50% stenosis. The proximal portion of the diagonal has 30% stenosis. There is competitive filling within the midportion of the LAD. The circumflex is a medium caliber, at least codominant vessel, which gives off 2 obtuse marginal branches. There is diffuse orox-jq-[id number] plaquing throughout the AV-groove segment. There is 30% stenosis at the bifurcation of the 1st obtuse marginal, involving both the AV groove segment and the obtuse marginal. In the distal AV groove, there is a 30% stenosis present. The remainder of the vessel has only mild plaquing. The right coronary artery is a small vessel which appears to be codominant, perhaps supplying the basal inferior segment. There is diff IMPRESSION: [place] multivessel coronary disease. Patent COWAN to LAD. Normal LVEDP. ASSESSMENT/PLAN ASSESSMENT/PLAN 1. Atypical chest pain; most probable MSK, reproducible. Initial trop negative 2. CAD s/p single vessel CABG with COWAN to the LAD. Cath at 01/24 showed patent COWAN graft with no distal stenosis in the LAD, mild disease involving the LCX, and minimal plaquing in the RCA as noted above. Of note, she has had multiple admissions to for CP recently and no further cardiac workup has been warranted. 3. Hypertension: Controlled 4. Hyperlipidemia: lipids on goal 5. 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 Defer to PCP 6. Hypokalemia Recommendations Trend troponin Replace K Resume secondary prevention measures Will monitor overnight Follow up with primary shoe worker upon discharge MELVI SCOTT MD 09/05/191925: CARDIAC CONSULT ASSESSMENT/PLAN ASSESSMENT/PLAN Patient seen and examined, Agree with BRANCH SALES AND SERVICE REPRESENTATIVE's assessment and plan. CP with atypical features, reproducible to palpation and most probably musculoskeletal Initial trop and EKG negative Recent cath results noted above Doubt ACS No further cardiac w/u is indicated at this time Thank you for your consultation MATA SAINI APRN Sep 05, 2019 16:32 MELVI SCOTT MD Sep 05, 2019 19:26
[2019-09-05] MEDS: POTASSIUM CHLORIDE 20 MEQ TABLET.ER. PO SCH (17:07)
[2019-09-05] MEDS ORDERED: NITROGLYCERIN SUBLINGUAL 0.4 MG BOTTLE OF 25. SL PRN (18:45)
[2019-09-05 19:35] VITALS: BP 113/61
[2019-09-05] MEDS ORDERED: ATORVASTATIN CALCIUM 40 MG TABLET. PO SCH (21:00)
[2019-09-05] MEDS ORDERED: FLU VAX QS 2019-20 (36MOS+)/PF 0.5 ML SYRINGE. VAX IM ONE (21:00)
[2019-09-05] MEDS ORDERED: traZODone 100 MG TABLET. PO SCH (21:00)
[2019-09-05] MEDS: clonazePAM 0.5 MG TABLET PO SCH (21:41)
[2019-09-05] MEDS: METOPROLOL TART IMMED RELEASE 25 MG TABLET. PO SCH (21:42)
[2019-09-05] MEDS: NAPROXEN 500 MG TABLET PO SCH (21:43)
[2019-09-05 23:09] VITALS: BP 96/47
[2019-09-06 02:38] VITALS: BP 137/80
[2019-09-06] MEDS: CYCLOBENZAPRINE 10 MG TABLET. PO PRN ×2 (04:55→13:47)
[2019-09-06] MEDS: ACETAMINOPHEN 325 MG TABLET. PO PRN ×2 (04:55→13:47)
[2019-09-06 07:00] VITALS: BP 149/71
[2019-09-06] MEDS ORDERED: PANTOPRAZOLE 40 MG TABLET.DR. PO SCH (07:30)
[2019-09-06] MEDS ORDERED: LOSARTAN POTASSIUM 25 MG TABLET. PO SCH (09:00)
[2019-09-06] MEDS ORDERED: ISOSORBIDE MONONITRATE ER 30 MG TAB.ER.24H PO SCH (09:00)
[2019-09-06] MEDS ORDERED: ASPIRIN CHEWABLE 81 MG TABLET. PO SCH (09:00)
[2019-09-06] MEDS: NAPROXEN 500 MG TABLET PO SCH (09:06)
[2019-09-06] MEDS: clonazePAM 0.5 MG TABLET PO SCH (09:06)
[2019-09-06] MEDS: POTASSIUM CHLORIDE 20 MEQ TABLET.ER. PO SCH (09:07)
[2019-09-06] MEDS: METOPROLOL TART IMMED RELEASE 25 MG TABLET. PO SCH (09:08)
--- NOTE | 2019-09-06 10:30 | PDOC ---
PROGRESS NOTES History of Present Illness History of Present Illness VTE Prophylaxis Ordered VTE Prophylaxis Devices: No VTE Pharmacological Prophylaxi: Yes DISCHARGE DX Assessment/Plan IMPRESSION Chest pain, angina, UNSTABLE CP with atypical features, reproducible to palpation and most probably musculoskeletal history of CAD recent cardiac cath at HX Schizophrenia hypokalemia HX Huntingtons chorea, on disability for psych PLAN ADMIT CARDIOLOGY CONSULT SERIAL TROPONIN I [facility] RECORDS NEEDED, REQUESTED D/W ER CVC BED DVT PROPHYLAXIS D/C PLANNING 23 MIN Vitals Vitals Vital Signs Date Time Temp Pulse Resp B/P (MAP) Pulse Ox O2 Delivery O2 Flow Rate FiO2 09/06/19 09:08 57 149/71 09/06/19 07:00 97.0 20 97 Room Air 97.0 Physical Exam General: Alert, Oriented X3, Cooperative, No acute distress Heart: Regular rate Abdomen: Normal bowel sounds, Soft, No tenderness, No hepatosplenomegaly, No masses Extremities: No clubbing, No cyanosis, No edema, Normal pulses, No tenderness/swelling Skin: No rashes, No breakdown, No significant lesion Labs LABS Laboratory Tests Test 09/05/19 11:50 09/05/19 16:30 09/05/19 19:35 White Blood Count 5.4 x10^3/uL (4.0-11.0) Red Blood Count 4.26 x10^6/uL (3.50-5.40) Hemoglobin 12.2 g/dL (12.0-15.5) Hematocrit 37.7 % (36.0-47.0) Mean Corpuscular Volume 88 fL (79-100) Mean Corpuscular Hemoglobin 29 pg (25-35) Mean Corpuscular Hemoglobin Concent 32 g/dL (31-37) Red Cell Distribution Width 15.0 % (11.5-14.5) Platelet Count 271 x10^3/uL (140-400) Neutrophils (%) (Auto) 36 % (31-73) Lymphocytes (%) (Auto) 55 % (24-48) Monocytes (%) (Auto) 8 % (0-9) Eosinophils (%) (Auto) 1 % (0-3) Basophils (%) (Auto) 1 % (0-3) Neutrophils # (Auto) 1.9 x10^3/uL (1.8-7.7) Lymphocytes # (Auto) 2.9 x10^3/uL (1.0-4.8) Monocytes # (Auto) 0.4 x10^3/uL (0.0-1.1) Eosinophils # (Auto) 0.1 x10^3/uL (0.0-0.7) Basophils # (Auto) 0.0 x10^3/uL (0.0-0.2) Prothrombin Time 12.8 SEC (11.7-14.0) Prothromb Time International Ratio 1.0 (0.8-1.1) Sodium Level 144 mmol/L (136-145) Potassium Level 3.3 mmol/L (3.5-5.1) Chloride Level 105 mmol/L (98-107) Carbon Dioxide Level 29 mmol/L (21-32) Anion Gap 10 (6-14) Blood Urea Nitrogen 14 mg/dL (7-20) Creatinine 0.6 mg/dL (0.6-1.0) Estimated GFR (Cockcroft-Gault) 121.4 BUN/Creatinine Ratio 23 (6-20) Glucose Level 94 mg/dL (70-99) Calcium Level 9.0 mg/dL (8.5-10.1) Magnesium Level 2.0 mg/dL (1.8-2.4) Total Bilirubin 0.7 mg/dL (0.2-1.0) Aspartate Amino Transf (AST/SGOT) 10 U/L (15-37) Alanine Aminotransferase (ALT/SGPT) 9 U/L (14-59) Alkaline Phosphatase 85 U/L (46-116) Troponin I Quantitative < 0.017 ng/mL (0.000-0.055) < 0.017 ng/mL (0.000-0.055) < 0.017 ng/mL (0.000-0.055) AN-Utu-C-Type Natriuretic Peptide 445 pg/mL (0-124) Total Protein 6.9 g/dL (6.4-8.2) Albumin 3.9 g/dL (3.4-5.0) Albumin/Globulin Ratio 1.3 (1.0-1.7) Assessment and Plan Assessmemt and Plan Problems Medical Problems: (1) Chest pain Status: Acute (2) Unstable angina Status: Acute Comment Review of Relevant I have reviewed the following items tata (where applicable) has been applied. Labs Laboratory Tests Test 09/05/19 11:50 09/05/19 16:30 09/05/19 19:35 White Blood Count 5.4 x10^3/uL (4.0-11.0) Red Blood Count 4.26 x10^6/uL (3.50-5.40) Hemoglobin 12.2 g/dL (12.0-15.5) Hematocrit 37.7 % (36.0-47.0) Mean Corpuscular Volume 88 fL (79-100) Mean Corpuscular Hemoglobin 29 pg (25-35) Mean Corpuscular Hemoglobin Concent 32 g/dL (31-37) Red Cell Distribution Width 15.0 % (11.5-14.5) Platelet Count 271 x10^3/uL (140-400) Neutrophils (%) (Auto) 36 % (31-73) Lymphocytes (%) (Auto) 55 % (24-48) Monocytes (%) (Auto) 8 % (0-9) Eosinophils (%) (Auto) 1 % (0-3) Basophils (%) (Auto) 1 % (0-3) Neutrophils # (Auto) 1.9 x10^3/uL (1.8-7.7) Lymphocytes # (Auto) 2.9 x10^3/uL (1.0-4.8) Monocytes # (Auto) 0.4 x10^3/uL (0.0-1.1) Eosinophils # (Auto) 0.1 x10^3/uL (0.0-0.7) Basophils # (Auto) 0.0 x10^3/uL (0.0-0.2) Prothrombin Time 12.8 SEC (11.7-14.0) Prothromb Time International Ratio 1.0 (0.8-1.1) Sodium Level 144 mmol/L (136-145) Potassium Level 3.3 mmol/L (3.5-5.1) Chloride Level 105 mmol/L (98-107) Carbon Dioxide Level 29 mmol/L (21-32) Anion Gap 10 (6-14) Blood Urea Nitrogen 14 mg/dL (7-20) Creatinine 0.6 mg/dL (0.6-1.0) Estimated GFR (Cockcroft-Gault) 121.4 BUN/Creatinine Ratio 23 (6-20) Glucose Level 94 mg/dL (70-99) Calcium Level 9.0 mg/dL (8.5-10.1) Magnesium Level 2.0 mg/dL (1.8-2.4) Total Bilirubin 0.7 mg/dL (0.2-1.0) Aspartate Amino Transf (AST/SGOT) 10 U/L (15-37) Alanine Aminotransferase (ALT/SGPT) 9 U/L (14-59) Alkaline Phosphatase 85 U/L (46-116) Troponin I Quantitative < 0.017 ng/mL (0.000-0.055) < 0.017 ng/mL (0.000-0.055) < 0.017 ng/mL (0.000-0.055) IF-Ctb-C-Type Natriuretic Peptide 445 pg/mL (0-124) Total Protein 6.9 g/dL (6.4-8.2) Albumin 3.9 g/dL (3.4-5.0) Albumin/Globulin Ratio 1.3 (1.0-1.7) Laboratory Tests Test 09/05/19 11:50 09/05/19 16:30 09/05/19 19:35 White Blood Count 5.4 x10^3/uL (4.0-11.0) Red Blood Count 4.26 x10^6/uL (3.50-5.40) Hemoglobin 12.2 g/dL (12.0-15.5) Hematocrit 37.7 % (36.0-47.0) Mean Corpuscular Volume 88 fL (79-100) Mean Corpuscular Hemoglobin 29 pg (25-35) Mean Corpuscular Hemoglobin Concent 32 g/dL (31-37) Red Cell Distribution Width 15.0 % (11.5-14.5) Platelet Count 271 x10^3/uL (140-400) Neutrophils (%) (Auto) 36 % (31-73) Lymphocytes (%) (Auto) 55 % (24-48) Monocytes (%) (Auto) 8 % (0-9) Eosinophils (%) (Auto) 1 % (0-3) Basophils (%) (Auto) 1 % (0-3) Neutrophils # (Auto) 1.9 x10^3/uL (1.8-7.7) Lymphocytes # (Auto) 2.9 x10^3/uL (1.0-4.8) Monocytes # (Auto) 0.4 x10^3/uL (0.0-1.1) Eosinophils # (Auto) 0.1 x10^3/uL (0.0-0.7) Basophils # (Auto) 0.0 x10^3/uL (0.0-0.2) Prothrombin Time 12.8 SEC (11.7-14.0) Prothromb Time International Ratio 1.0 (0.8-1.1) Sodium Level 144 mmol/L (136-145) Potassium Level 3.3 mmol/L (3.5-5.1) Chloride Level 105 mmol/L (98-107) Carbon Dioxide Level 29 mmol/L (21-32) Anion Gap 10 (6-14) Blood Urea Nitrogen 14 mg/dL (7-20) Creatinine 0.6 mg/dL (0.6-1.0) Estimated GFR (Cockcroft-Gault) 121.4 BUN/Creatinine Ratio 23 (6-20) Glucose Level 94 mg/dL (70-99) Calcium Level 9.0 mg/dL (8.5-10.1) Magnesium Level 2.0 mg/dL (1.8-2.4) Total Bilirubin 0.7 mg/dL (0.2-1.0) Aspartate Amino Transf (AST/SGOT) 10 U/L (15-37) Alanine Aminotransferase (ALT/SGPT) 9 U/L (14-59) Alkaline Phosphatase 85 U/L (46-116) Troponin I Quantitative < 0.017 ng/mL (0.000-0.055) < 0.017 ng/mL (0.000-0.055) < 0.017 ng/mL (0.000-0.055) MC-Ijw-Z-Type Natriuretic Peptide 445 pg/mL (0-124) Total Protein 6.9 g/dL (6.4-8.2) Albumin 3.9 g/dL (3.4-5.0) Albumin/Globulin Ratio 1.3 (1.0-1.7) Medications Current Medications Aspirin (Children'S Aspirin) 324 mg 1X ONCE PO Last administered on 09/05/19at 11:41; Start 09/05/19 at 11:30; Stop 09/05/19 at 11:31; Status DC Nitroglycerin (Nitro-Bid Oint) 1 inch 1X ONCE TP Last administered on 09/05/19at 11:41; Start 09/05/19 at 11:30; Stop 09/05/19 at 11:31; Status DC Potassium Chloride (Klor-Con) 20 meq DAILYWBKFT PO Last administered on 09/06/19at 09:07; Start 09/05/19 at 17:00 Influenza Virus Vaccine Quadrival (Afluria Quad 2019-20 (3yr Up) Syringe) 0.5 ml ONCE ONCE VAX IM Last administered on 09/05/19at 21:47; Start 09/05/19 at 21:00; Stop 09/05/19 at 21:01; Status DC Acetaminophen (Tylenol) 650 mg PRN Q4HRS PRN PO PAIN Last administered on 09/06/19 04:55; Start 09/05/19 at 18:45 Aspirin (Children'S Aspirin) 81 mg DAILY PO Last administered on 09/06/19at 09:07; Start 09/06/19 at 09:00 Atorvastatin Calcium (Lipitor) 40 mg QHS PO Last administered on 09/05/19at 21:42; Start 09/05/19 at 21:00 Clonazepam (KlonoPIN) 0.5 mg BID PO Last administered on 09/06/19at 09:06; Start 09/05/19 at 21:00 Cyclobenzaprine HCl (Flexeril) 10 mg PRN TID PRN PO MUSCLE SPASMS Last administered on 09/06/19at 04:55; Start 09/05/19 at 18:45 Isosorbide Mononitrate (Imdur) 30 mg DAILY PO Last administered on 09/06/19 09:07; Start 09/06/19 at 09:00 Losartan Potassium (Cozaar) 25 mg DAILY PO Last administered on 09/06/19 09:07; Start 09/06/19 at 09:00 Metoprolol Tartrate (Lopressor) 25 mg BID PO Last administered on 09/06/19at 09:08; Start 09/05/19 at 21:00 Nitroglycerin (Nitrostat) 0.4 mg PRN Q5MIN PRN SL CHEST PAIN; Start 09/05/19 at 18:45 Trazodone HCl (Desyrel) 100 mg HS PO Last administered on 09/05/19at 21:42; Start 09/05/19 at 21:00 Naproxen (Naprosyn) 500 mg BID PO Last administered on 09/06/19at 09:06; Start 09/05/19 at 21:00 Pantoprazole Sodium (Protonix) 40 mg DAILYAC PO Last administered on 09/06/19at 09:07; Start 09/06/19 at 07:30 Active Scripts Active NITROGLYCERIN SubLingual (Nitroglycerin) 0.4 Mg Tab.subl 0.4 Mg SL PRN Q5MIN PRN Reported Isosorbide Mononitrate Er (Isosorbide Mononitrate) 30 Mg Tab.er.24h 30 Mg PO DAILY Metoprolol Tartrate 25 Mg Tablet 25 Mg PO BID Trazodone Hcl 100 Mg Tablet 100 Mg PO HS Clonazepam 0.5 Mg Tablet 0.5 Mg PO BID Omeprazole 20 Mg Capsule.dr 1 Cap PO DAILY Naproxen 500 Mg Tablet.dr 1 Tab PO BID Cyclobenzaprine Hcl 10 Mg Tablet 1 Tab PO PRN TID PRN Losartan Potassium (Losartan Potassium) 25 Mg Tablet 25 Mg PO DAILY Atorvastatin Calcium 40 Mg Tablet 1 Tab PO QHS Aspirin 81 Mg Tab.chew 1 Tab PO DAILY Tylenol (Acetaminophen) 325 Mg Tablet 650 Mg PO PRN Q4HRS PRN Vitals/I & O Vital Sign - Last 24 Hours 09/05/19 09/05/19 09/05/19 09/05/19 10:47 11:18 11:41 11:48 Temp 98.3 98.3 Pulse 56 56 64 54 Resp 20 16 20 B/P (MAP) 137/66 (89) 136/60 (85) 136/60 118/62 (80) Pulse Ox 98 99 100 O2 Delivery Room Air Room Air 09/05/19 09/05/19 09/05/19 09/05/19 12:48 13:18 14:30 15:18 Pulse 66 74 56 52 Resp 16 16 16 16 B/P (MAP) 121/80 (94) 133/66 (88) 133/68 (89) 117/61 (79) Pulse Ox 96 98 100 98 O2 Delivery Room Air Room Air 09/05/19 09/05/19 09/05/19 09/05/19 15:55 19:35 20:00 21:42 Temp 97.6 97.6 Pulse 81 81 Resp 20 B/P (MAP) 113/61 (78) 113/61 Pulse Ox 95 O2 Delivery Room Air Room Air Room Air 09/05/19 09/06/19 09/06/19 09/06/19 23:09 02:38 07:00 09:07 Temp 98.0 98.1 97.0 98.0 98.1 97.0 Pulse 59 64 51 56 Resp 16 18 20 B/P (MAP) 96/47 (63) 137/80 (99) 149/71 (97) 149/71 Pulse Ox 96 94 97 O2 Delivery Room Air Room Air Room Air 09/06/19 09/06/19 09:07 09:08 Pulse 51 57 B/P (MAP) 149/71 149/71 Intake and Output 09/05/19 09/05/19 09/06/19 15:00 23:00 07:00 Intake Total 320 ml 900 ml Output Total 150 ml Balance 320 ml 750 ml KAITLIN HERMAN MD Sep 06, 2019 10:29
[2019-09-06 11:00] VITALS: BP 98/51
--- NOTE | 2019-09-06 11:33 | NUR ---
SS following for discharge planning. SS reviewed pt chart. Pt is from home and is currently on room air. SS will continue to follow for discharge planning.
--- NOTE | 2019-09-06 12:58 | PDOC3 ---
Discharge Summary Date of Admission: Sep 05, 2019 Date of Discharge: Sep 06, 2019 Follow-Up: 3-5 days Admitting Diagnosis comment: DISCHARGE DX Assessment/Plan IMPRESSION Chest pain, angina, UNSTABLE CP with atypical features, reproducible to palpation and most probably musculoskeletal history of CAD recent cardiac cath at HX Schizophrenia hypokalemia HX Huntingtons chorea, on disability for psych PLAN ADMIT CARDIOLOGY CONSULT SERIAL TROPONIN I FIELD [facility] RECORDS NEEDED, REQUESTED D/W ER CVC BED DVT PROPHYLAXIS D/C PLANNING 23 MIN Vitals Vitals Vital Signs Date Time Temp Pulse Resp B/P (MAP) Pulse Ox O2 Delivery O2 Flow Rate FiO2 09/06/19 09:08 57 149/71 09/06/19 07:00 97.0 20 97 Room Air 97.0 Physical Exam General: Alert, Oriented X3, Cooperative, No acute distress Heart: Regular rate Abdomen: Normal bowel sounds, Soft, No tenderness, No hepatosplenomegaly, No masses Extremities: No clubbing, No cyanosis, No edema, Normal pulses, No tenderness/swelling Skin: No rashes, No breakdown, No significant lesion FINAL DIAGNOSIS Problems Medical Problems: (1) Chest pain Status: Acute (2) Unstable angina Status: Acute Brief Hospital Course Ms. Minaya is a 64 old [sex] who presented with [CHEST PAIN ] CONDITION AT DISCHARGE: Improved Discharge Medications Current Medications Aspirin (Children'S Aspirin) 324 mg 1X ONCE PO Last administered on 09/05/19at 11:41; Start 09/05/19 at 11:30; Stop 09/05/19 at 11:31; Status DC Nitroglycerin (Nitro-Bid Oint) 1 inch 1X ONCE TP Last administered on 09/05/19at 11:41; Start 09/05/19 at 11:30; Stop 09/05/19 at 11:31; Status DC Potassium Chloride (Klor-Con) 20 meq DAILYWBKFT PO Last administered on 09/06/19at 09:07; Start 09/05/19 at 17:00 Influenza Virus Vaccine Quadrival (Afluria Quad 2019- (3yr Up) Syringe) 0.5 ml ONCE ONCE VAX IM Last administered on 09/05/19at 21:47; Start 09/05/19 at 21:00; Stop 09/05/19 at 21:01; Status DC Acetaminophen (Tylenol) 650 mg PRN Q4HRS PRN PO PAIN Last administered on 09/06/19 04:55; Start 09/05/19 at 18:45 Aspirin (Children'S Aspirin) 81 mg DAILY PO Last administered on 09/06/19at 09:07; Start 09/06/19 at 09:00 Atorvastatin Calcium (Lipitor) 40 mg QHS PO Last administered on 09/05/19at 21:42; Start 09/05/19 at 21:00 Clonazepam (KlonoPIN) 0.5 mg BID PO Last administered on 09/06/19 09:06; Start 09/05/19 at 21:00 Cyclobenzaprine HCl (Flexeril) 10 mg PRN TID PRN PO MUSCLE SPASMS Last administered on 09/06/19 04:55; Start 09/05/19 at 18:45 Isosorbide Mononitrate (Imdur) 30 mg DAILY PO Last administered on 09/06/19 09:07; Start 09/06/19 at 09:00 Losartan Potassium (Cozaar) 25 mg DAILY PO Last administered on 09/06/19 09:07; Start 09/06/19 at 09:00 Metoprolol Tartrate (Lopressor) 25 mg BID PO Last administered on 09/06/19at 09:08; Start 09/05/19 at 21:00 Nitroglycerin (Nitrostat) 0.4 mg PRN Q5MIN PRN SL CHEST PAIN; Start 09/05/19 at 18:45 Trazodone HCl (Desyrel) 100 mg HS PO Last administered on 09/05/19at 21:42; Start 09/05/19 at 21:00 Naproxen (Naprosyn) 500 mg BID PO Last administered on 09/06/19 09:06; Start 09/05/19 at 21:00 Pantoprazole Sodium (Protonix) 40 mg DAILYAC PO Last administered on 09/06/19at 09:07; Start 09/06/19 at 07:30 Active Scripts Active NITROGLYCERIN SubLingual (Nitroglycerin) 0.4 Mg Tab.subl 0.4 Mg SL PRN Q5MIN PRN Reported Isosorbide Mononitrate Er (Isosorbide Mononitrate) 30 Mg Tab.er.24h 30 Mg PO DAILY Metoprolol Tartrate 25 Mg Tablet 25 Mg PO BID Trazodone Hcl 100 Mg Tablet 100 Mg PO HS Clonazepam 0.5 Mg Tablet 0.5 Mg PO BID Omeprazole 20 Mg Capsule.dr 1 Cap PO DAILY Naproxen 500 Mg Tablet.dr 1 Tab PO BID Cyclobenzaprine Hcl 10 Mg Tablet 1 Tab PO PRN TID PRN Losartan Potassium (Losartan Potassium) 25 Mg Tablet 25 Mg PO DAILY Atorvastatin Calcium 40 Mg Tablet 1 Tab PO QHS Aspirin 81 Mg Tab.chew 1 Tab PO DAILY Tylenol (Acetaminophen) 325 Mg Tablet 650 Mg PO PRN Q4HRS PRN Vital Signs Vital Signs Date Time Temp Pulse Resp B/P (MAP) Pulse Ox O2 Delivery O2 Flow Rate FiO2 09/06/19 11:00 97.7 55 18 98/51 (67) 96 Room Air 97.7 Labs Laboratory Tests Test 09/05/19 11:50 09/05/19 16:30 09/05/19 19:35 White Blood Count 5.4 x10^3/uL (4.0-11.0) Red Blood Count 4.26 x10^6/uL (3.50-5.40) Hemoglobin 12.2 g/dL (12.0-15.5) Hematocrit 37.7 % (36.0-47.0) Mean Corpuscular Volume 88 fL (79-100) Mean Corpuscular Hemoglobin 29 pg (25-35) Mean Corpuscular Hemoglobin Concent 32 g/dL (31-37) Red Cell Distribution Width 15.0 % (11.5-14.5) Platelet Count 271 x10^3/uL (140-400) Neutrophils (%) (Auto) 36 % (31-73) Lymphocytes (%) (Auto) 55 % (24-48) Monocytes (%) (Auto) 8 % (0-9) Eosinophils (%) (Auto) 1 % (0-3) Basophils (%) (Auto) 1 % (0-3) Neutrophils # (Auto) 1.9 x10^3/uL (1.8-7.7) Lymphocytes # (Auto) 2.9 x10^3/uL (1.0-4.8) Monocytes # (Auto) 0.4 x10^3/uL (0.0-1.1) Eosinophils # (Auto) 0.1 x10^3/uL (0.0-0.7) Basophils # (Auto) 0.0 x10^3/uL (0.0-0.2) Prothrombin Time 12.8 SEC (11.7-14.0) Prothromb Time International Ratio 1.0 (0.8-1.1) Sodium Level 144 mmol/L (136-145) Potassium Level 3.3 mmol/L (3.5-5.1) Chloride Level 105 mmol/L (98-107) Carbon Dioxide Level 29 mmol/L (21-32) Anion Gap 10 (6-14) Blood Urea Nitrogen 14 mg/dL (7-20) Creatinine 0.6 mg/dL (0.6-1.0) Estimated GFR (Cockcroft-Gault) 121.4 BUN/Creatinine Ratio 23 (6-20) Glucose Level 94 mg/dL (70-99) Calcium Level 9.0 mg/dL (8.5-10.1) Magnesium Level 2.0 mg/dL (1.8-2.4) Total Bilirubin 0.7 mg/dL (0.2-1.0) Aspartate Amino Transf (AST/SGOT) 10 U/L (15-37) Alanine Aminotransferase (ALT/SGPT) 9 U/L (14-59) Alkaline Phosphatase 85 U/L (46-116) Troponin I Quantitative < 0.017 ng/mL (0.000-0.055) < 0.017 ng/mL (0.000-0.055) < 0.017 ng/mL (0.000-0.055) KC-Obr-H-Type Natriuretic Peptide 445 pg/mL (0-124) Total Protein 6.9 g/dL (6.4-8.2) Albumin 3.9 g/dL (3.4-5.0) Albumin/Globulin Ratio 1.3 (1.0-1.7) Laboratory Tests Test 09/05/19 16:30 09/05/19 19:35 Troponin I Quantitative < 0.017 ng/mL (0.000-0.055) < 0.017 ng/mL (0.000-0.055) Allergies Allergies Coded Allergies Type Severity Reaction Last Updated Verified hydrocodone Allergy Intermediate Itching 10/25/16 Yes Disposition/Orders: D/C to Home KAITLIN HERMAN MD Sep 06, 2019 12:57
[2019-09-06] MEDS ORDERED: POTA20TA4 PO (12:59)
--- NOTE | 2019-09-06 13:00 | DISCH ---
DISCHARGE INSTRUCTIONS Condition on Discharge Condition on Discharge: Stable Activity After Discharge Activity Instructions for Disc: Resume previous activity Driving Instructions after Dis: Do not drive today Weight Bearing Status after Di: No restrictions Diet after Discharge Diet after Discharge: Cardiac Diet Texture: Regular Swallowing Supervision: None needed Wound Incision Care Wound/Incision Care: No wound care needed Checks after Discharge Checks after discharge: Check blood press - daily, Check your Temp as needed Contacting the DR. after DC Call your doctor for: If your condition worsens Treatment/Equipment after DC Adaptive Equipment Issued: None KAITLIN HERMAN MD Sep 06, 2019 13:00
--- NOTE | 2019-09-06 14:25 | NUR ---
Discharge Note: MAGUE NOVAK Discharge instructions and discharge home medications reviewed with Patient and a copy given. All questions have been answered and understanding verbalized. The following instructions and handouts were given: PRESCRIPTION INSTRUCTIONS FOR POTASSIUM, MEDICATION LIST, FOLLOW UP INSTRUCTIONS Discontinued lines and drains: PERIPHERAL IV, DRESSING CLEAN,DRY AND intact. Patient discharged to HOME with SELF via WHEELCHAIR
== END 2019-09-06 14:20 | disposition home or self-care (01) ==
LOC: ER 10:39 → 2 SOUTH 13:20
PROVIDERS: ADMIT Family Medicine; ATTEND Family Medicine
DX: I20.0 Unstable angina (principal); R07.89 Other chest pain; I25.2 Old myocardial infarction; I10 Essential (primary) hypertension; J45.909 Unspecified asthma, uncomplicated; K21.9 Gastro-esophageal reflux disease without esophagitis; F41.9 Anxiety disorder, unspecified; F20.9 Schizophrenia, unspecified; E78.00 Pure hypercholesterolemia, unspecified; Z95.1 Presence of aortocoronary bypass graft; Z98.891 History of uterine scar from previous surgery; Z87.891 Personal history of nicotine dependence
CPT/HCPCS: 36415; 71045; 80053; 83735; 83880; 84484; 85025; 85610; 90471; 90686; 93005; 99284; G0378; G0379

== ENCOUNTER 2019-09-21 18:35 | Observation (INO) | payer OTHER ==
[~2019-09-21] VITALS: Ht 157.5 cm; Wt 62.7 kg
[~2019-09-21 18:35] MED LIST changes: +CLON0.5T4 PO; +ISOS30TA4 PO; +POTA20TA4 PO; +TRAZ-123 PO
[2019-09-21] MEDS ORDERED: KETOROLAC 30 MG/ML VIAL. IVP ONE (19:00)
[2019-09-21] MEDS ORDERED: ASPIRIN CHEWABLE 81 MG TABLET. PO ONE (19:00)
--- NOTE | 2019-09-21 19:01 | PHYS DOC ---
Past Medical History Past Medical History: Asthma, CAD, High Cholesterol, Hypertension, [place], Other Additional Past Medical Histor: huntingtons Past Surgical History: Coronary Bypass Surgery, , Other Additional Past Surgical Histo: 're-did my valves',OPEN HEART, bypass in L leg Smoking Status: Former Smoker Alcohol Use: None Drug Use: None The HEART Score for CP Pts HEART Score for Chest Pain: HEART Score for Chest Pain Response (Comments) Value History Slighlty/Non-Suspicious 0 ECG Normal 0 Age >45 - < 65 1 Risk Factors >3 Risk Factors or Hx CAD 2 Troponin < Normal Limit 0 Total 3 Risk Factors: Risk Factors: DM, Current or recent (<one month) smoker, HTN, HLP, family history of CAD, obesity. Risk Scores: Score 0 - 3: 2.5% MACE over next 6 weeks - Discharge Home Score 4 - 6: 20.3% MACE over next 6 weeks - Admit for Clinical Observation Score 7 - 10: 72.7% MACE over next 6 weeks - Early Invasive Strategies Adult General Chief Complaint Chief Complaint: CHEST PAIN HPI HPI 64-year-old female with underlying history of coronary artery disease, [place] in 1999, hypertension, hyperlipidemia presents to the emergency Department complaints of left-sided chest pain. She states this started this morning. Patient unable to describe pain for me. She states it is worse with movement. She denies any nausea, vomiting, diarrhea, abdominal pain. Patient is not a very good historian with regards to onset of pain, description of pain. Review of Systems Review of Systems Constitutional: Denies fever or chills [] Respiratory: Denies cough or shortness of breath [] Cardiovascular: No additional information not addressed in HPI [] GI: Denies abdominal pain, nausea, vomiting, bloody stools or diarrhea [] Musculoskeletal: Denies back pain or joint pain [] Integument: Denies rash or skin lesions [] Neurologic: Denies headache, focal weakness or sensory changes [] All other systems were reviewed and found to be within normal limits, except as documented in this note. Current Medications Current Medications Current Medications Medications (Trade) Dose Ordered Sig/Jody Start Time Stop Time Status Last Admin Dose Admin Aspirin (Children'S Aspirin) 324 mg 1X ONCE 09/21/19 19:00 09/21/19 19:01 DC 09/21/19 19:09 324 MG Ketorolac Tromethamine (Toradol 30mg Vial) 30 mg 1X ONCE 09/21/19 19:00 09/21/19 19:01 DC 09/21/19 19:09 30 MG Allergies Allergies Allergies Coded Allergies Type Severity Reaction Last Updated Verified hydrocodone Allergy Intermediate Itching 10/25/16 Yes Physical Exam Physical Exam Constitutional: Well developed, well nourished, no acute distress, non-toxic appearance. [] HENT: Normocephalic, atraumatic, bilateral external ears normal, oropharynx moist, no oral exudates, nose normal. [] Eyes: PERRLA, EOMI, conjunctiva normal, no discharge. [] Neck: Normal range of motion, no tenderness, supple, no stridor. [] Cardiovascular:Heart rate regular rhythm, no murmur [] Lungs & Thorax: Bilateral breath sounds clear to auscultation [] Abdomen: Bowel sounds normal, soft, no tenderness, no masses, no pulsatile masses. [] Skin: Warm, dry, no erythema, no rash. [] Back: No tenderness, no CVA tenderness. [] Extremities: No tenderness, no cyanosis, no clubbing, ROM intact, no edema. [] Neurologic: Alert and oriented X 3, normal motor function, normal sensory function, no focal deficits noted. [] Psychologic: Affect normal, judgement normal, mood normal. [] Current Patient Data Vital Signs Vital Signs Date Time Temp Pulse Resp B/P (MAP) Pulse Ox O2 Delivery O2 Flow Rate FiO2 09/21/19 18:45 98.4 65 16 138/78 (98) 96 Room Air 98.4 Lab Values Laboratory Tests Test 09/21/19 18:59 09/21/19 19:46 White Blood Count 5.4 x10^3/uL (4.0-11.0) Red Blood Count 4.03 x10^6/uL (3.50-5.40) Hemoglobin 11.6 g/dL (12.0-15.5) L Hematocrit 35.4 % (36.0-47.0) L Mean Corpuscular Volume 88 fL (79-100) Mean Corpuscular Hemoglobin 29 pg (25-35) Mean Corpuscular Hemoglobin Concent 33 g/dL (31-37) Red Cell Distribution Width 15.3 % (11.5-14.5) H Platelet Count 281 x10^3/uL (140-400) Neutrophils (%) (Auto) 32 % (31-73) Lymphocytes (%) (Auto) 56 % (24-48) H Monocytes (%) (Auto) 8 % (0-9) Eosinophils (%) (Auto) 2 % (0-3) Basophils (%) (Auto) 1 % (0-3) Neutrophils # (Auto) 1.7 x10^3/uL (1.8-7.7) L Lymphocytes # (Auto) 3.0 x10^3/uL (1.0-4.8) Monocytes # (Auto) 0.4 x10^3/uL (0.0-1.1) Eosinophils # (Auto) 0.1 x10^3/uL (0.0-0.7) Basophils # (Auto) 0.1 x10^3/uL (0.0-0.2) Sodium Level 143 mmol/L (136-145) Potassium Level 3.6 mmol/L (3.5-5.1) Chloride Level 105 mmol/L (98-107) Carbon Dioxide Level 33 mmol/L (21-32) H Anion Gap 5 (6-14) L Blood Urea Nitrogen 18 mg/dL (7-20) Creatinine 0.6 mg/dL (0.6-1.0) Estimated GFR (Cockcroft-Gault) 121.4 BUN/Creatinine Ratio 30 (6-20) H Glucose Level 93 mg/dL (70-99) Calcium Level 8.8 mg/dL (8.5-10.1) Magnesium Level 1.8 mg/dL (1.8-2.4) Total Bilirubin 0.6 mg/dL (0.2-1.0) Aspartate Amino Transferase (AST) 12 U/L (15-37) L Alanine Aminotransferase (ALT) 13 U/L (14-59) L Alkaline Phosphatase 80 U/L (46-116) Troponin I Quantitative < 0.017 ng/mL (0.000-0.055) EY-Gen-R-Type Natriuretic Peptide 279 pg/mL (0-124) H Total Protein 6.8 g/dL (6.4-8.2) Albumin 3.9 g/dL (3.4-5.0) Albumin/Globulin Ratio 1.3 (1.0-1.7) Urine Opiates Screen Neg (NEG) Urine Methadone Screen Neg (NEG) Urine Barbiturates Neg (NEG) Urine Phencyclidine Screen Neg (NEG) Urine Amphetamine/Methamphetamine Neg (NEG) Urine Benzodiazepines Screen Neg (NEG) Urine Cocaine Screen Neg (NEG) Urine Cannabinoids Screen Neg (NEG) Urine Ethyl Alcohol Neg (NEG) Laboratory Tests 09/21/19 18:59 Laboratory Tests 09/21/19 18:59 EKG EKG EKG reviewed, and 1902, normal sinus rhythm, left axis deviation, no STEMI[] Radiology/Procedures Radiology/Procedures [facility] [address] [place] [address] IMAGING REPORT Signed PATIENT: ADE NOVAK ACCOUNT: [id number] : 1955 LOCATION: ER AGE: 64 SEX: F EXAM STATUS: PRE ER ORD. PHYSICIAN: MARIA ALEJANDRA PAULINO MD REASON: Left side chest pain PROCEDURE: PORTABLE CHEST 1V AP chest. HISTORY: Left-sided chest pain AP view was taken of the chest. Lungs are clear. Heart is normal in size. There is no effusion. IMPRESSION: 1. No acute chest disease. Electronically signed by: Yunior Hough MD (09/21/2019 7:48 PM) [id number] DICTATED and SIGNED BY: YUNIOR HOUGH MD DATE: 09/21/19 194 [] Course & Med Decision Making Course & Med Decision Making Pertinent Labs and Imaging studies reviewed. (See chart for details) []64-year-old female with underlying history of coronary artery disease, [place] in 1999, hypertension, hyperlipidemia presents to the emergency Department complaints of left-sided chest pain. She states this started this morning. Patient unable to describe pain for me. She states it is worse with movement. She denies any nausea, vomiting, diarrhea, abdominal pain. Patient is not a very good historian with regards to onset of pain, description of pain. ASA/Toradol/NTG ordered Trop negative x 1 HEART Score 3 Patient with continued pain in ER Admit for observation Dragon Disclaimer Dragon Disclaimer This electronic medical record was generated, in whole or in part, using a voice recognition dictation system. Departure Departure Impression: Primary Impression: Chest pain Additional Impressions: HTN (hypertension) HLD (hyperlipidemia) Huntingtons chorea Disposition: 09 ADMITTED INPATIENT Admitting Physician: MARISOL Condition: STABLE Referrals: UNKNOWN PCP NAME (PCP) Problem Qualifiers Primary Impression: Chest pain Chest pain type: unspecified Qualified Codes: R07.9 - Chest pain, unspecified Additional Impressions: HTN (hypertension) Hypertension type: essential hypertension Qualified Codes: I10 - Essential (primary) hypertension HLD (hyperlipidemia) Hyperlipidemia type: unspecified Qualified Codes: E78.5 - Hyperlipidemia, unspecified MARIA ALEJANDRA PUALINO MD Sep 21, 2019 19:01
[2019-09-21 19:12] LABS: BASO # 0.1 x10^3/uL (0.0-0.2); BASO % 1 % (0-3); EOS # 0.1 x10^3/uL (0.0-0.7); EOS % 2 % (0-3); HEMATOCRIT 35.4 % (36.0-47.0); HEMOGLOBIN 11.6 g/dL (12.0-15.5); LYMPH % 56 % (24-48); MEAN CORPUSCULAR HEMOGLOBIN 29 pg (25-35); MEAN CORPUSCULAR HGB CONC 33 g/dL (31-37); MEAN CORPUSCULAR VOLUME 88 fL (79-100); MONO # 0.4 x10^3/uL (0.0-1.1); MONO % 8 % (0-9); NEUT # 1.7 x10^3/uL (1.8-7.7); NEUT % 32 % (31-73); PLATELET COUNT 281 x10^3/uL (140-400); RED BLOOD COUNT 4.03 x10^6/uL (3.50-5.40); RED CELL DISTRIBUTION WIDTH 15.3 % (11.5-14.5); WHITE BLOOD COUNT 5.4 x10^3/uL (4.0-11.0)
[2019-09-21 19:16] LABS: CALCIUM 8.8 mg/dL (8.5-10.1); CREATININE 0.6 mg/dL (0.6-1.0); GFR 121.4; POTASSIUM 3.6 mmol/L (3.5-5.1)
[2019-09-21 19:22] LABS: ALBUMIN 3.9 g/dL (3.4-5.0); ALBUMIN/GLOBULIN RATIO 1.3 (1.0-1.7); MAGNESIUM 1.8 mg/dL (1.8-2.4); TOTAL BILIRUBIN 0.6 mg/dL (0.2-1.0); TOTAL PROTEIN 6.8 g/dL (6.4-8.2)
--- NOTE | 2019-09-21 19:51 | RAD ---
AP chest. HISTORY: Left-sided chest pain AP view was taken of the chest. Lungs are clear. Heart is normal in size. There is no effusion. IMPRESSION: 1. No acute chest disease. Electronically signed by: Yunior Harman MD (09/21/2019 7:48 PM) [id number]
[2019-09-21 20:08] LABS: BARBITURATES NEG (NEG); BENZODIAZEPINES NEG (NEG); CANNABINOIDS NEG (NEG); COCAINE NEG (NEG); METHADONE NEG (NEG); OPIATES NEG (NEG); PHENCYCLIDINE NEG (NEG)
[2019-09-21 20:15] LABS: AMPHETAMINE/METHAMPHETAMINE NEG (NEG)
[2019-09-21] MEDS ORDERED: ONDANSETRON PF 4 MG/2 ML VIAL. IV PRN (20:30)
[2019-09-21] MEDS ORDERED: NITROGLYCERIN SUBLINGUAL 0.4 MG BOTTLE OF 25. SL PRN (20:30)
[2019-09-21] MEDS ORDERED: ACETAMINOPHEN 325 MG TABLET. PO PRN (20:30)
[2019-09-21] MEDS: MORPHINE SULFATE 2 MG/ML VIAL. IV PRN ×2 (21:21→23:39)
[2019-09-21 21:45] VITALS: BP 163/74
[2019-09-21 23:30] VITALS: BP 163/74
[2019-09-22 02:59] LABS: BASO % 1 % (0-3); EOS # 0.1 x10^3/uL (0.0-0.7); EOS % 2 % (0-3); HEMATOCRIT 34.5 % (36.0-47.0); HEMOGLOBIN 11.4 g/dL (12.0-15.5); LYMPH # 2.4 x10^3/uL (1.0-4.8); LYMPH % 54 % (24-48); MEAN CORPUSCULAR HEMOGLOBIN 29 pg (25-35); MEAN CORPUSCULAR HGB CONC 33 g/dL (31-37); MEAN CORPUSCULAR VOLUME 87 fL (79-100); MONO # 0.4 x10^3/uL (0.0-1.1); MONO % 10 % (0-9); NEUT # 1.5 x10^3/uL (1.8-7.7); NEUT % 33 % (31-73); PLATELET COUNT 251 x10^3/uL (140-400); RED BLOOD COUNT 3.94 x10^6/uL (3.50-5.40); RED CELL DISTRIBUTION WIDTH 15.2 % (11.5-14.5); WHITE BLOOD COUNT 4.4 x10^3/uL (4.0-11.0)
[2019-09-22 03:12] VITALS: BP 142/72
[2019-09-22 03:20] LABS: ALBUMIN 3.5 g/dL (3.4-5.0); ALBUMIN/GLOBULIN RATIO 1.3 (1.0-1.7); CALCIUM 8.5 mg/dL (8.5-10.1); CREATININE 0.6 mg/dL (0.6-1.0); GFR 121.4; TOTAL BILIRUBIN 0.6 mg/dL (0.2-1.0); TOTAL PROTEIN 6.2 g/dL (6.4-8.2)
[2019-09-22] MEDS: MORPHINE SULFATE 2 MG/ML VIAL. IV PRN ×2 (03:58→09:25)
[2019-09-22 07:00] VITALS: BP 177/69
--- NOTE | 2019-09-22 10:09 | PDOC1 ---
History and Physical Date of Admission Date of Admission DATE: 09/22/19 TIME: 10:09 Identification/Chief Complaint Chief Complaint SEEN IN ER , 64-year-old female with underlying history of coronary artery disease, [place] in 1999, hypertension, hyperlipidemia presents to the emergency Department complaints of left-sided chest pain. She states this started this morning. Patient unable to describe pain for me. She states it is worse with movement. She denies any nausea, vomiting, diarrhea, abdominal pain. not a very good historian Past Medical History Past Medical History Past Medical History Past Medical History: Asthma, CAD, High Cholesterol, Hypertension, [place], Other Additional Past Medical Histor: huntingtons Past Surgical History: Coronary Bypass Surgery, , Other Additional Past Surgical Histo: 're-did my valves',OPEN HEART, bypass in L leg Smoking Status: Former Smoker Alcohol Use: None Drug Use: None FHX HTN Cardiovascular: CAD, HTN, Hyperlipidemia Pulmonary: Asthma CENTRAL NERVOUS SYSTEM: Other GI: GERD Heme/Onc: No pertinent hx Psych: Anxiety, Schizophrenia Renal/: No pertinent hx Past Surgical History Past Surgical History: CABG, Other Family History Family History: Asthma, High Cholestrol, Hypertension Social History Smoke: No ALCOHOL: none Drugs: None Current Problem List Problem List Problems Medical Problems: (1) Chest pain Status: Acute (2) HLD (hyperlipidemia) Status: Chronic (3) HTN (hypertension) Status: Chronic (4) Huntingtons chorea Status: Chronic Current Medications Current Medications Current Medications Aspirin (Children'S Aspirin) 324 mg 1X ONCE PO Last administered on 09/21/19at 19:09; Start 09/21/19 at 19:00; Stop 09/21/19 at 19:01; Status DC Ketorolac Tromethamine (Toradol 30mg Vial) 30 mg 1X ONCE IVP Last administered on 09/21/19at 19:09; Start 09/21/19 at 19:00; Stop 09/21/19 at 19:01; Status DC Ondansetron HCl (Zofran) 4 mg PRN Q8HRS PRN IV NAUSEA/VOMITING Last administered on 09/21/19at 21:20; Start 09/21/19 at 20:30; Stop 09/22/19 at 20:29 Morphine Sulfate (Morphine Sulfate) 2 mg PRN Q2HR PRN IV PAIN Last administered on 09/22/19at 09:25; Start 09/21/19 at 20:30; Stop 09/22/19 at 20:29 Acetaminophen (Tylenol) 650 mg PRN Q4HRS PRN PO FEVER; Start 09/21/19 at 20:30; Stop 09/22/19 at 20:29 Nitroglycerin (Nitrostat) 0.4 mg PRN Q5MIN PRN SL CHEST PAIN; Start 09/21/19 at 20:30; Stop 09/22/19 at 20:29 Active Scripts Active Klor-Con M20 (Potassium Chloride) 20 Meq Tab.er.prt 20 Meq PO DAILYWBKFT 14 Days NITROGLYCERIN SubLingual (Nitroglycerin) 0.4 Mg Tab.subl 0.4 Mg SL PRN Q5MIN PRN Reported Isosorbide Mononitrate Er (Isosorbide Mononitrate) 30 Mg Tab.er.24h 30 Mg PO DAILY Metoprolol Tartrate 25 Mg Tablet 25 Mg PO BID Trazodone Hcl 100 Mg Tablet 100 Mg PO HS Clonazepam 0.5 Mg Tablet 0.5 Mg PO BID Omeprazole 20 Mg Capsule.dr 1 Cap PO DAILY Naproxen 500 Mg Tablet.dr 1 Tab PO BID Cyclobenzaprine Hcl 10 Mg Tablet 1 Tab PO PRN TID PRN Losartan Potassium (Losartan Potassium) 25 Mg Tablet 25 Mg PO DAILY Atorvastatin Calcium 40 Mg Tablet 1 Tab PO QHS Aspirin 81 Mg Tab.chew 1 Tab PO DAILY Tylenol (Acetaminophen) 325 Mg Tablet 650 Mg PO PRN Q4HRS PRN Allergies Allergies: Coded Allergies: hydrocodone (Verified Allergy, Intermediate, Itching, 10/25/16) swelling, itching ROS Review of System Review of Systems Review of Systems Constitutional: Denies fever or chills [] Respiratory: Denies cough or shortness of breath [] Cardiovascular: No additional information not addressed in HPI [] GI: Denies abdominal pain, nausea, vomiting, bloody stools or diarrhea [] Musculoskeletal: Denies back pain or joint pain [] Integument: Denies rash or skin lesions [] Neurologic: Denies headache, focal weakness or sensory changes [] 14 PT systems were reviewed and found to be within normal limits, except as documented General: YES: Fatigue ALLERGY AND IMMUNOLOGY: No: Hives, Insect Bite Sensitivity, Itchy/Watery Eyes, Nasal Congestion, Post Nasal Drip, Seasonal Allergies, Other Cardiovascular: yes Chest Pain Neurological: Yes Gait Disturbance Physical Exam Physical Exam Physical Exam Physical Exam Constitutional: Well developed, well nourished, no acute distress, non-toxic appearance. [] HENT: Normocephalic, atraumatic, bilateral external ears normal, oropharynx moist, no oral exudates, nose normal. [] Eyes: PERRLA, EOMI, conjunctiva normal, no discharge. [] Neck: Normal range of motion, no tenderness, supple, no stridor. [] Cardiovascular:Heart rate regular rhythm, no murmur [] Lungs & Thorax: Bilateral breath sounds clear to auscultation [] Abdomen: Bowel sounds normal, soft, no tenderness, no masses, no pulsatile masses. [] Skin: Warm, dry, no erythema, no rash. [] Back: No tenderness, no CVA tenderness. [] Extremities: No tenderness, no cyanosis, no clubbing, ROM intact, no edema. [] Neurologic: Alert and oriented X 3, normal motor function, normal sensory function, no focal deficits noted. [] Psychologic: Affect normal, judgment normal, mood normal. [] General: Alert, Oriented X3, Cooperative, No acute distress Lungs: Clear to auscultation, Normal air movement Heart: RRR Breasts: Not examined Abdomen: Normal bowel sounds, Soft PELVIC: Examination not indicated Extremities: No cyanosis Neuro: Cranial nerves 3-12 NL Vitals Vitals Vital Signs Date Time Temp Pulse Resp B/P (MAP) Pulse Ox O2 Delivery O2 Flow Rate FiO2 09/22/19 09:25 Room Air 09/22/19 07:00 98.0 63 18 177/69 (105) 96 98.0 Labs Labs Laboratory Tests Test 09/21/19 18:59 09/21/19 19:46 09/22/19 00:01 09/22/19 02:30 White Blood Count 5.4 x10^3/uL (4.0-11.0) 4.4 x10^3/uL (4.0-11.0) Red Blood Count 4.03 x10^6/uL (3.50-5.40) 3.94 x10^6/uL (3.50-5.40) Hemoglobin 11.6 g/dL (12.0-15.5) 11.4 g/dL (12.0-15.5) Hematocrit 35.4 % (36.0-47.0) 34.5 % (36.0-47.0) Mean Corpuscular Volume 88 fL (79-100) 87 fL (79-100) Mean Corpuscular Hemoglobin 29 pg (25-35) 29 pg (25-35) Mean Corpuscular Hemoglobin Concent 33 g/dL (31-37) 33 g/dL (31-37) Red Cell Distribution Width 15.3 % (11.5-14.5) 15.2 % (11.5-14.5) Platelet Count 281 x10^3/uL (140-400) 251 x10^3/uL (140-400) Neutrophils (%) (Auto) 32 % (31-73) 33 % (31-73) Lymphocytes (%) (Auto) 56 % (24-48) 54 % (24-48) Monocytes (%) (Auto) 8 % (0-9) 10 % (0-9) Eosinophils (%) (Auto) 2 % (0-3) 2 % (0-3) Basophils (%) (Auto) 1 % (0-3) 1 % (0-3) Neutrophils # (Auto) 1.7 x10^3/uL (1.8-7.7) 1.5 x10^3/uL (1.8-7.7) Lymphocytes # (Auto) 3.0 x10^3/uL (1.0-4.8) 2.4 x10^3/uL (1.0-4.8) Monocytes # (Auto) 0.4 x10^3/uL (0.0-1.1) 0.4 x10^3/uL (0.0-1.1) Eosinophils # (Auto) 0.1 x10^3/uL (0.0-0.7) 0.1 x10^3/uL (0.0-0.7) Basophils # (Auto) 0.1 x10^3/uL (0.0-0.2) 0.0 x10^3/uL (0.0-0.2) Sodium Level 143 mmol/L (136-145) 144 mmol/L (136-145) Potassium Level 3.6 mmol/L (3.5-5.1) 4.0 mmol/L (3.5-5.1) Chloride Level 105 mmol/L (98-107) 106 mmol/L (98-107) Carbon Dioxide Level 33 mmol/L (21-32) 32 mmol/L (21-32) Anion Gap 5 (6-14) 6 (6-14) Blood Urea Nitrogen 18 mg/dL (7-20) 15 mg/dL (7-20) Creatinine 0.6 mg/dL (0.6-1.0) 0.6 mg/dL (0.6-1.0) Estimated GFR (Cockcroft-Gault) 121.4 121.4 BUN/Creatinine Ratio 30 (6-20) 25 (6-20) Glucose Level 93 mg/dL (70-99) 92 mg/dL (70-99) Calcium Level 8.8 mg/dL (8.5-10.1) 8.5 mg/dL (8.5-10.1) Magnesium Level 1.8 mg/dL (1.8-2.4) Total Bilirubin 0.6 mg/dL (0.2-1.0) 0.6 mg/dL (0.2-1.0) Aspartate Amino Transf (AST/SGOT) 12 U/L (15-37) 11 U/L (15-37) Alanine Aminotransferase (ALT/SGPT) 13 U/L (14-59) 13 U/L (14-59) Alkaline Phosphatase 80 U/L (46-116) 71 U/L (46-116) Troponin I Quantitative < 0.017 ng/mL (0.000-0.055) < 0.017 ng/mL (0.000-0.055) < 0.017 ng/mL (0.000-0.055) ZM-Oem-Q-Type Natriuretic Peptide 279 pg/mL (0-124) Total Protein 6.8 g/dL (6.4-8.2) 6.2 g/dL (6.4-8.2) Albumin 3.9 g/dL (3.4-5.0) 3.5 g/dL (3.4-5.0) Albumin/Globulin Ratio 1.3 (1.0-1.7) 1.3 (1.0-1.7) Urine Opiates Screen Neg (NEG) Urine Methadone Screen Neg (NEG) Urine Barbiturates Neg (NEG) Urine Phencyclidine Screen Neg (NEG) Urine Amphetamine/Methamphetamine Neg (NEG) Urine Benzodiazepines Screen Neg (NEG) Urine Cocaine Screen Neg (NEG) Urine Cannabinoids Screen Neg (NEG) Urine Ethyl Alcohol Neg (NEG) Laboratory Tests Test 09/21/19 18:59 09/21/19 19:46 09/22/19 00:01 09/22/19 02:30 White Blood Count 5.4 x10^3/uL (4.0-11.0) 4.4 x10^3/uL (4.0-11.0) Red Blood Count 4.03 x10^6/uL (3.50-5.40) 3.94 x10^6/uL (3.50-5.40) Hemoglobin 11.6 g/dL (12.0-15.5) 11.4 g/dL (12.0-15.5) Hematocrit 35.4 % (36.0-47.0) 34.5 % (36.0-47.0) Mean Corpuscular Volume 88 fL (79-100) 87 fL (79-100) Mean Corpuscular Hemoglobin 29 pg (25-35) 29 pg (25-35) Mean Corpuscular Hemoglobin Concent 33 g/dL (31-37) 33 g/dL (31-37) Red Cell Distribution Width 15.3 % (11.5-14.5) 15.2 % (11.5-14.5) Platelet Count 281 x10^3/uL (140-400) 251 x10^3/uL (140-400) Neutrophils (%) (Auto) 32 % (31-73) 33 % (31-73) Lymphocytes (%) (Auto) 56 % (24-48) 54 % (24-48) Monocytes (%) (Auto) 8 % (0-9) 10 % (0-9) Eosinophils (%) (Auto) 2 % (0-3) 2 % (0-3) Basophils (%) (Auto) 1 % (0-3) 1 % (0-3) Neutrophils # (Auto) 1.7 x10^3/uL (1.8-7.7) 1.5 x10^3/uL (1.8-7.7) Lymphocytes # (Auto) 3.0 x10^3/uL (1.0-4.8) 2.4 x10^3/uL (1.0-4.8) Monocytes # (Auto) 0.4 x10^3/uL (0.0-1.1) 0.4 x10^3/uL (0.0-1.1) Eosinophils # (Auto) 0.1 x10^3/uL (0.0-0.7) 0.1 x10^3/uL (0.0-0.7) Basophils # (Auto) 0.1 x10^3/uL (0.0-0.2) 0.0 x10^3/uL (0.0-0.2) Sodium Level 143 mmol/L (136-145) 144 mmol/L (136-145) Potassium Level 3.6 mmol/L (3.5-5.1) 4.0 mmol/L (3.5-5.1) Chloride Level 105 mmol/L (98-107) 106 mmol/L (98-107) Carbon Dioxide Level 33 mmol/L (21-32) 32 mmol/L (21-32) Anion Gap 5 (6-14) 6 (6-14) Blood Urea Nitrogen 18 mg/dL (7-20) 15 mg/dL (7-20) Creatinine 0.6 mg/dL (0.6-1.0) 0.6 mg/dL (0.6-1.0) Estimated GFR (Cockcroft-Gault) 121.4 121.4 BUN/Creatinine Ratio 30 (6-20) 25 (6-20) Glucose Level 93 mg/dL (70-99) 92 mg/dL (70-99) Calcium Level 8.8 mg/dL (8.5-10.1) 8.5 mg/dL (8.5-10.1) Magnesium Level 1.8 mg/dL (1.8-2.4) Total Bilirubin 0.6 mg/dL (0.2-1.0) 0.6 mg/dL (0.2-1.0) Aspartate Amino Transf (AST/SGOT) 12 U/L (15-37) 11 U/L (15-37) Alanine Aminotransferase (ALT/SGPT) 13 U/L (14-59) 13 U/L (14-59) Alkaline Phosphatase 80 U/L (46-116) 71 U/L (46-116) Troponin I Quantitative < 0.017 ng/mL (0.000-0.055) < 0.017 ng/mL (0.000-0.055) < 0.017 ng/mL (0.000-0.055) WM-Exj-N-Type Natriuretic Peptide 279 pg/mL (0-124) Total Protein 6.8 g/dL (6.4-8.2) 6.2 g/dL (6.4-8.2) Albumin 3.9 g/dL (3.4-5.0) 3.5 g/dL (3.4-5.0) Albumin/Globulin Ratio 1.3 (1.0-1.7) 1.3 (1.0-1.7) Urine Opiates Screen Neg (NEG) Urine Methadone Screen Neg (NEG) Urine Barbiturates Neg (NEG) Urine Phencyclidine Screen Neg (NEG) Urine Amphetamine/Methamphetamine Neg (NEG) Urine Benzodiazepines Screen Neg (NEG) Urine Cocaine Screen Neg (NEG) Urine Cannabinoids Screen Neg (NEG) Urine Ethyl Alcohol Neg (NEG) VTE Prophylaxis Ordered VTE Prophylaxis Devices: No VTE Pharmacological Prophylaxi: Yes Assessment/Plan Assessment/Plan Assessment/Plan IMPRESSION Chest pain, angina, CP with atypical features, reproducible to palpation and most probably musc uloskeletal history of CAD recent cardiac cath at [facility] HX Schizophrenia hypokalemia HX Huntingtons chorea, on disability for psych PLAN ADMIT TELE SERIAL TROPONIN I [facility] RECORDS NEEDED, REQUESTED DVT PROPHYLAXIS D/C TODAY KAITLIN HERMAN MD Sep 22, 2019 10:09
--- NOTE | 2019-09-22 10:18 | EKG ---
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
[2019-09-22 11:00] VITALS: BP 129/58
[2019-09-22] MEDS ORDERED: ACETAMINOPHEN 325 MG TABLET. PO PRN (12:15)
[2019-09-22] MEDS ORDERED: CYCLOBENZAPRINE 10 MG TABLET. PO PRN (12:15)
[2019-09-22] MEDS ORDERED: ASPIRIN CHEWABLE 81 MG TABLET. PO SCH (12:30)
[2019-09-22] MEDS ORDERED: POTASSIUM CHLORIDE 20 MEQ TABLET.ER. PO SCH (12:30)
[2019-09-22] MEDS ORDERED: LOSARTAN POTASSIUM 25 MG TABLET. PO SCH (12:30)
[2019-09-22] MEDS ORDERED: PANTOPRAZOLE 40 MG TABLET.DR. PO SCH (12:30)
[2019-09-22] MEDS ORDERED: ISOSORBIDE MONONITRATE ER 30 MG TAB.ER.24H PO SCH (12:30)
[2019-09-22] MEDS ORDERED: METOPROLOL TART IMMED RELEASE 25 MG TABLET. PO SCH (12:30)
[2019-09-22] MEDS ORDERED: clonazePAM 0.5 MG TABLET PO SCH (12:30)
[2019-09-22] MEDS: NAPROXEN 500 MG TABLET PO SCH ×2 (12:47→16:58)
--- NOTE | 2019-09-22 14:35 | PDOC3 ---
Discharge Summary Date of Admission: Sep 21, 2019 Date of Discharge: Sep 22, 2019 Follow-Up: 3-5 days Admitting Diagnosis comment: VTE Prophylaxis Ordered VTE Prophylaxis Devices: No VTE Pharmacological Prophylaxi: Yes DISCHARGE DX Assessment/Plan Assessment/Plan IMPRESSION Chest pain, angina, CP with atypical features, reproducible to palpation and most probably musculoskeletal history of CAD recent cardiac cath at [facility] Schizophrenia hypokalemia HX Huntingtons chorea, on disability for psych PLAN ADMIT TELE SERIAL TROPONIN I [facility] RECORDS NEEDED, REQUESTED DVT PROPHYLAXIS D/C TODAY D/C PLANNING 34 MIN FINAL DIAGNOSIS Problems Medical Problems: (1) Chest pain Status: Acute (2) HLD (hyperlipidemia) Status: Chronic (3) HTN (hypertension) Status: Chronic (4) Huntingtons chorea Status: Chronic Brief Hospital Course Ms. Minaya is a 64 old [sex] who presented with [CHEST PAIN ] CONDITION AT DISCHARGE: Improved Discharge Medications Current Medications Aspirin (Children'S Aspirin) 324 mg 1X ONCE PO Last administered on 09/21/19at 19:09; Start 09/21/19 at 19:00; Stop 09/21/19 at 19:01; Status DC Ketorolac Tromethamine (Toradol 30mg Vial) 30 mg 1X ONCE IVP Last administered on 09/21/19at 19:09; Start 09/21/19 at 19:00; Stop 09/21/19 at 19:01; Status DC Ondansetron HCl (Zofran) 4 mg PRN Q8HRS PRN IV NAUSEA/VOMITING Last administered on 09/21/19at 21:20; Start 09/21/19 at 20:30; Stop 09/22/19 at 20:29 Morphine Sulfate (Morphine Sulfate) 2 mg PRN Q2HR PRN IV PAIN Last administered on 09/22/19at 09:25; Start 09/21/19 at 20:30; Stop 09/22/19 at 20:29 Acetaminophen (Tylenol) 650 mg PRN Q4HRS PRN PO FEVER; Start 09/21/19 at 20:30; Stop 09/22/19 at 12:15; Status DC Nitroglycerin (Nitrostat) 0.4 mg PRN Q5MIN PRN SL CHEST PAIN; Start 09/21/19 at 20:30; Stop 09/22/19 at 20:29 Acetaminophen (Tylenol) 650 mg PRN Q4HRS PRN PO PAIN; Start 09/22/19 at 12:15 Aspirin (Children'S Aspirin) 81 mg DAILY PO Last administered on 09/22/19at 12:49; Start 09/22/19 at 12:30 Atorvastatin Calcium (Lipitor) 40 mg QHS PO ; Start 09/22/19 at 21:00 Clonazepam (KlonoPIN) 0.5 mg BID PO Last administered on 09/22/19at 12:48; Start 09/22/19 at 12:30 Cyclobenzaprine HCl (Flexeril) 10 mg PRN TID PRN PO MUSCLE SPASMS; Start 09/22/19 at 12:15 Isosorbide Mononitrate (Imdur) 30 mg DAILY PO Last administered on 09/22/19at 12:49; Start 09/22/19 at 12:30 Losartan Potassium (Cozaar) 25 mg DAILY PO Last administered on 09/22/19at 12:50; Start 09/22/19 at 12:30 Metoprolol Tartrate (Lopressor) 25 mg BID PO Last administered on 09/22/19at 12:50; Start 09/22/19 at 12:30 Potassium Chloride (Klor-Con) 20 meq DAILYWBKFT PO Last administered on 0at 12:49; Start 09/22/19 at 12:30 Trazodone HCl (Desyrel) 100 mg HS PO ; Start 09/22/19 at 21:00 Naproxen (Naprosyn) 500 mg BIDWMEALS PO Last administered on 09/22/19at 12:47; Start 09/22/19 at 12:30 Pantoprazole Sodium (Protonix) 40 mg DAILYAC PO Last administered on 09/22/19at 12:49; Start 09/22/19 at 12:30 Active Scripts Active Klor-Con M20 (Potassium Chloride) 20 Meq Tab.er.prt 20 Meq PO DAILYWBKFT 14 Days NITROGLYCERIN SubLingual (Nitroglycerin) 0.4 Mg Tab.subl 0.4 Mg SL PRN Q5MIN PRN Reported Isosorbide Mononitrate Er (Isosorbide Mononitrate) 30 Mg Tab.er.24h 30 Mg PO DA DANNA Metoprolol Tartrate 25 Mg Tablet 25 Mg PO BID Trazodone Hcl 100 Mg Tablet 100 Mg PO HS Clonazepam 0.5 Mg Tablet 0.5 Mg PO BID Omeprazole 20 Mg Capsule.dr 1 Cap PO DAILY Naproxen 500 Mg Tablet.dr 1 Tab PO BID Cyclobenzaprine Hcl 10 Mg Tablet 1 Tab PO PRN TID PRN Losartan Potassium (Losartan Potassium) 25 Mg Tablet 25 Mg PO DAILY Atorvastatin Calcium 40 Mg Tablet 1 Tab PO QHS Aspirin 81 Mg Tab.chew 1 Tab PO DAILY Tylenol (Acetaminophen) 325 Mg Tablet 650 Mg PO PRN Q4HRS PRN Vital Signs Vital Signs Date Time Temp Pulse Resp B/P (MAP) Pulse Ox O2 Delivery O2 Flow Rate FiO2 09/22/19 12:50 61 141/64 09/22/19 11:37 16 Room Air 09/22/19 11:00 98.0 94 98.0 Labs Laboratory Tests Test 09/21/19 18:59 09/21/19 19:46 09/22/19 00:01 09/22/19 02:30 White Blood Count 5.4 x10^3/uL (4.0-11.0) 4.4 x10^3/uL (4.0-11.0) Red Blood Count 4.03 x10^6/uL (3.50-5.40) 3.94 x10^6/uL (3.50-5.40) Hemoglobin 11.6 g/dL (12.0-15.5) 11.4 g/dL (12.0-15.5) Hematocrit 35.4 % (36.0-47.0) 34.5 % (36.0-47.0) Mean Corpuscular Volume 88 fL (79-100) 87 fL (79-100) Mean Corpuscular Hemoglobin 29 pg (25-35) 29 pg (25-35) Mean Corpuscular Hemoglobin Concent 33 g/dL (31-37) 33 g/dL (31-37) Red Cell Distribution Width 15.3 % (11.5-14.5) 15.2 % (11.5-14.5) Platelet Count 281 x10^3/uL (140-400) 251 x10^3/uL (140-400) Neutrophils (%) (Auto) 32 % (31-73) 33 % (31-73) Lymphocytes (%) (Auto) 56 % (24-48) 54 % (24-48) Monocytes (%) (Auto) 8 % (0-9) 10 % (0-9) Eosinophils (%) (Auto) 2 % (0-3) 2 % (0-3) Basophils (%) (Auto) 1 % (0-3) 1 % (0-3) Neutrophils # (Auto) 1.7 x10^3/uL (1.8-7.7) 1.5 x10^3/uL (1.8-7.7) Lymphocytes # (Auto) 3.0 x10^3/uL (1.0-4.8) 2.4 x10^3/uL (1.0-4.8) Monocytes # (Auto) 0.4 x10^3/uL (0.0-1.1) 0.4 x10^3/uL (0.0-1.1) Eosinophils # (Auto) 0.1 x10^3/uL (0.0-0.7) 0.1 x10^3/uL (0.0-0.7) Basophils # (Auto) 0.1 x10^3/uL (0.0-0.2) 0.0 x10^3/uL (0.0-0.2) Sodium Level 143 mmol/L (136-145) 144 mmol/L (136-145) Potassium Level 3.6 mmol/L (3.5-5.1) 4.0 mmol/L (3.5-5.1) Chloride Level 105 mmol/L (98-107) 106 mmol/L (98-107) Carbon Dioxide Level 33 mmol/L (21-32) 32 mmol/L (21-32) Anion Gap 5 (6-14) 6 (6-14) Blood Urea Nitrogen 18 mg/dL (7-20) 15 mg/dL (7-20) Creatinine 0.6 mg/dL (0.6-1.0) 0.6 mg/dL (0.6-1.0) Estimated GFR (Cockcroft-Gault) 121.4 121.4 BUN/Creatinine Ratio 30 (6-20) 25 (6-20) Glucose Level 93 mg/dL (70-99) 92 mg/dL (70-99) Calcium Level 8.8 mg/dL (8.5-10.1) 8.5 mg/dL (8.5-10.1) Magnesium Level 1.8 mg/dL (1.8-2.4) Total Bilirubin 0.6 mg/dL (0.2-1.0) 0.6 mg/dL (0.2-1.0) Aspartate Amino Transf (AST/SGOT) 12 U/L (15-37) 11 U/L (15-37) Alanine Aminotransferase (ALT/SGPT) 13 U/L (14-59) 13 U/L (14-59) Alkaline Phosphatase 80 U/L (46-116) 71 U/L (46-116) Troponin I Quantitative < 0.017 ng/mL (0.000-0.055) < 0.017 ng/mL (0.000-0.055) < 0.017 ng/mL (0.000-0.055) IP-Pbb-I-Type Natriuretic Peptide 279 pg/mL (0-124) Total Protein 6.8 g/dL (6.4-8.2) 6.2 g/dL (6.4-8.2) Albumin 3.9 g/dL (3.4-5.0) 3.5 g/dL (3.4-5.0) Albumin/Globulin Ratio 1.3 (1.0-1.7) 1.3 (1.0-1.7) Urine Opiates Screen Neg (NEG) Urine Methadone Screen Neg (NEG) Urine Barbiturates Neg (NEG) Urine Phencyclidine Screen Neg (NEG) Urine Amphetamine/Methamphetamine Neg (NEG) Urine Benzodiazepines Screen Neg (NEG) Urine Cocaine Screen Neg (NEG) Urine Cannabinoids Screen Neg (NEG) Urine Ethyl Alcohol Neg (NEG) Laboratory Tests Test 09/21/19 18:59 09/21/19 19:46 09/22/19 00:01 09/22/19 02:30 White Blood Count 5.4 x10^3/uL (4.0-11.0) 4.4 x10^3/uL (4.0-11.0) Red Blood Count 4.03 x10^6/uL (3.50-5.40) 3.94 x10^6/uL (3.50-5.40) Hemoglobin 11.6 g/dL (12.0-15.5) 11.4 g/dL (12.0-15.5) Hematocrit 35.4 % (36.0-47.0) 34.5 % (36.0-47.0) Mean Corpuscular Volume 88 fL (79-100) 87 fL (79-100) Mean Corpuscular Hemoglobin 29 pg (25-35) 29 pg (25-35) Mean Corpuscular Hemoglobin Concent 33 g/dL (31-37) 33 g/dL (31-37) Red Cell Distribution Width 15.3 % (11.5-14.5) 15.2 % (11.5-14.5) Platelet Count 281 x10^3/uL (140-400) 251 x10^3/uL (140-400) Neutrophils (%) (Auto) 32 % (31-73) 33 % (31-73) Lymphocytes (%) (Auto) 56 % (24-48) 54 % (24-48) Monocytes (%) (Auto) 8 % (0-9) 10 % (0-9) Eosinophils (%) (Auto) 2 % (0-3) 2 % (0-3) Basophils (%) (Auto) 1 % (0-3) 1 % (0-3) Neutrophils # (Auto) 1.7 x10^3/uL (1.8-7.7) 1.5 x10^3/uL (1.8-7.7) Lymphocytes # (Auto) 3.0 x10^3/uL (1.0-4.8) 2.4 x10^3/uL (1.0-4.8) Monocytes # (Auto) 0.4 x10^3/uL (0.0-1.1) 0.4 x10^3/uL (0.0-1.1) Eosinophils # (Auto) 0.1 x10^3/uL (0.0-0.7) 0.1 x10^3/uL (0.0-0.7) Basophils # (Auto) 0.1 x10^3/uL (0.0-0.2) 0.0 x10^3/uL (0.0-0.2) Sodium Level 143 mmol/L (136-145) 144 mmol/L (136-145) Potassium Level 3.6 mmol/L (3.5-5.1) 4.0 mmol/L (3.5-5.1) Chloride Level 105 mmol/L (98-107) 106 mmol/L (98-107) Carbon Dioxide Level 33 mmol/L (21-32) 32 mmol/L (21-32) Anion Gap 5 (6-14) 6 (6-14) Blood Urea Nitrogen 18 mg/dL (7-20) 15 mg/dL (7-20) Creatinine 0.6 mg/dL (0.6-1.0) 0.6 mg/dL (0.6-1.0) Estimated GFR (Cockcroft-Gault) 121.4 121.4 BUN/Creatinine Ratio 30 (6-20) 25 (6-20) Glucose Level 93 mg/dL (70-99) 92 mg/dL (70-99) Calcium Level 8.8 mg/dL (8.5-10.1) 8.5 mg/dL (8.5-10.1) Magnesium Level 1.8 mg/dL (1.8-2.4) Total Bilirubin 0.6 mg/dL (0.2-1.0) 0.6 mg/dL (0.2-1.0) Aspartate Amino Transf (AST/SGOT) 12 U/L (15-37) 11 U/L (15-37) Alanine Aminotransferase (ALT/SGPT) 13 U/L (14-59) 13 U/L (14-59) Alkaline Phosphatase 80 U/L (46-116) 71 U/L (46-116) Troponin I Quantitative < 0.017 ng/mL (0.000-0.055) < 0.017 ng/mL (0.000-0.055) < 0.017 ng/mL (0.000-0.055) OR-Yyq-Y-Type Natriuretic Peptide 279 pg/mL (0-124) Total Protein 6.8 g/dL (6.4-8.2) 6.2 g/dL (6.4-8.2) Albumin 3.9 g/dL (3.4-5.0) 3.5 g/dL (3.4-5.0) Albumin/Globulin Ratio 1.3 (1.0-1.7) 1.3 (1.0-1.7) Urine Opiates Screen Neg (NEG) Urine Methadone Screen Neg (NEG) Urine Barbiturates Neg (NEG) Urine Phencyclidine Screen Neg (NEG) Urine Amphetamine/Methamphetamine Neg (NEG) Urine Benzodiazepines Screen Neg (NEG) Urine Cocaine Screen Neg (NEG) Urine Cannabinoids Screen Neg (NEG) Urine Ethyl Alcohol Neg (NEG) Allergies Allergies Coded Allergies Type Severity Reaction Last Updated Verified hydrocodone Allergy Intermediate Itching 10/25/16 Yes Disposition/Orders: D/C to Home KAITLIN HERMAN MD Sep 22, 2019 14:35
--- NOTE | 2019-09-22 14:37 | DISCH ---
DISCHARGE INSTRUCTIONS Condition on Discharge Condition on Discharge: Stable Activity After Discharge Activity Instructions for Disc: Resume previous activity Lifting Instructions after Dis: No heavy lifting, No pulling or pushing Driving Instructions after Dis: Do not drive today Weight Bearing Status after Di: No restrictions Diet after Discharge Diet after Discharge: Cardiac Diet Texture: Regular Liquid Texture: Thin Liquid Swallowing Supervision: None needed Wound Incision Care Wound/Incision Care: No wound care needed Checks after Discharge Checks after discharge: Check blood press - daily Contacting the DR. after DC Call your doctor for: If your condition worsens Treatment/Equipment after DC Adaptive Equipment Issued: None KAITLIN HERMAN MD Sep 22, 2019 14:37
[2019-09-22 15:09] VITALS: BP 130/65
--- NOTE | 2019-09-22 18:36 | NUR ---
Discharge Note: DOMINIQUE NOVAK [facility] Discharge instructions and discharge home medications reviewed with Patient and a copy given. All questions have been answered and understanding verbalized. Follow up reviewed and understanding verbalized. Pt. stated she already scheduled a follow up appointment for 09/28/2019. The following instructions and handouts were given: hypokalemia, angina. Patient discharged to home with self-care via WC to private vehicle.
[2019-09-22] MEDS ORDERED: ATORVASTATIN CALCIUM 40 MG TABLET. PO SCH (21:00)
[2019-09-22] MEDS ORDERED: traZODone 100 MG TABLET. PO SCH (21:00)
== END 2019-09-22 18:15 | disposition home or self-care (01) ==
LOC: ER 18:35 → 6 SOUTH 20:25
PROVIDERS: ADMIT Internal Medicine; ATTEND Internal Medicine
DX: R07.89 Other chest pain (principal); E78.5 Hyperlipidemia, unspecified; I10 Essential (primary) hypertension; G10 Huntington's disease; I25.10 Atherosclerotic heart disease of native coronary artery without angina pectoris; F20.9 Schizophrenia, unspecified; E87.6 Hypokalemia; J45.909 Unspecified asthma, uncomplicated; I25.2 Old myocardial infarction; Z90.710 Acquired absence of both cervix and uterus; Z95.1 Presence of aortocoronary bypass graft; Z98.890 Other specified postprocedural states; Z87.891 Personal history of nicotine dependence
CPT/HCPCS: 36415; 71045; 80053; 80307; 83735; 83880; 84484; 85025; 93005; 96374; 96375; 96376; 99285; G0378; J1885; J2270; J2405; G0379

== ENCOUNTER 2019-09-26 17:52 | Emergency (ER) | payer OTHER ==
[~2019-09-26] VITALS: Ht 157.5 cm; Wt 61.3 kg
[2019-09-26] MEDS ORDERED: NITROGLYCERIN SUBLINGUAL 0.4 MG BOTTLE OF 25. SL PRN (18:30)
[2019-09-26] MEDS ORDERED: ASPIRIN CHEWABLE 81 MG TABLET. PO ONE (18:30)
--- NOTE | 2019-09-26 18:32 | PHYS DOC ---
Past Medical History Past Medical History: Asthma, CAD, High Cholesterol, Hypertension, [place], Other Additional Past Medical Histor: huntingtons Past Surgical History: Coronary Bypass Surgery, , Other Additional Past Surgical Histo: 're-did my valves',OPEN HEART, bypass in L leg Smoking Status: Former Smoker Alcohol Use: None Drug Use: None Adult General Chief Complaint Chief Complaint: CHEST PAIN [facility] HPI 64-year-old female presents to the emergency Department complaints of chest pain left-sided/sharp. She states started early this morning has been intermittent throughout the day, states Tylenol and Motrin are not improving the pain. She wa s recently admitted at this facility within the last 2 weeks with similar complaints. Cardiac enzymes at that time 3 were unremarkable. Patient was diagnosed with muscular skeletal chest pain. Patient was recommended follow up as an outpatient with her primary care physician and cardiology. She denies any shortness breath, nausea, vomiting. She has had cardiac workup at [facility] was records obtained with last admission. Nothing makes her pain worse, nothing makes her pain better. He does have underlying history of hypertension, hyperlipidemia, anxiety, schizophrenia. She denies any headache, visual change, abdominal pain. Pain does not radiate. Review of Systems Review of Systems Constitutional: Denies fever or chills [] Respiratory: Denies cough or shortness of breath [] Cardiovascular: No additional information not addressed in HPI [] GI: Denies abdominal pain, nausea, vomiting, bloody stools or diarrhea [] Musculoskeletal: Denies back pain or joint pain [] Integument: Denies rash or skin lesions [] Neurologic: Denies headache, focal weakness or sensory changes [] All other systems were reviewed and found to be within normal limits, except as documented in this note. Current Medications Current Medications Current Medications Medications (Trade) Dose Ordered Sig/[facility] Start Time Stop Time Status Last Admin Dose Admin Aspirin (Children'S Aspirin) 324 mg 1X ONCE 09/26/19 18:30 09/26/19 18:31 DC 09/26/19 18:58 324 MG Ketorolac Tromethamine (Toradol 30mg Vial) 30 mg 1X ONCE 09/26/19 18:45 09/26/19 18:46 DC 09/26/19 18:59 30 MG Nitroglycerin (Nitrostat) 0.4 mg PRN Q5MIN PRN 09/26/19 18:30 09/27/19 18:29 09/26/19 18:59 0.4 MG Allergies Allergies Allergies Coded Allergies Type Severity Reaction Last Updated Verified hydrocodone Allergy Intermediate Itching 10/25/16 Yes Physical Exam Physical Exam Constitutional: Well developed, well nourished, no acute distress, non-toxic appearance. [] Neck: Normal range of motion, no tenderness, supple, no stridor. [] Cardiovascular:Heart rate regular rhythm, no murmur, pain reproducible to left chest [] Lungs & Thorax: Bilateral breath sounds clear to auscultation [] Abdomen: Bowel sounds normal, soft, no tenderness, no masses, no pulsatile masses. [] Skin: Warm, dry, no erythema, no rash. [] Back: No tenderness, no CVA tenderness. [] Extremities: No tenderness, no edema. [] Neurologic: Alert and oriented X 3, no focal deficits noted. [] Psychologic: Affect normal, judgement normal, mood normal. [] Current Patient Data Vital Signs Vital Signs Date Time Temp Pulse Resp B/P (MAP) Pulse Ox O2 Delivery O2 Flow Rate FiO2 09/26/19 18:59 64 163/73 09/26/19 18:14 98.2 18 97 Room Air 98.2 Lab Values Laboratory Tests Test 09/26/19 18:33 White Blood Count 5.1 x10^3/uL (4.0-11.0) Red Blood Count 3.90 x10^6/uL (3.50-5.40) Hemoglobin 11.2 g/dL (12.0-15.5) L Hematocrit 34.4 % (36.0-47.0) L Mean Corpuscular Volume 88 fL (79-100) Mean Corpuscular Hemoglobin 29 pg (25-35) Mean Corpuscular Hemoglobin Concent 33 g/dL (31-37) Red Cell Distribution Width 15.3 % (11.5-14.5) H Platelet Count 274 x10^3/uL (140-400) Neutrophils (%) (Auto) 32 % (31-73) Lymphocytes (%) (Auto) 58 % (24-48) H Monocytes (%) (Auto) 8 % (0-9) Eosinophils (%) (Auto) 2 % (0-3) Basophils (%) (Auto) 1 % (0-3) Neutrophils # (Auto) 1.6 x10^3/uL (1.8-7.7) L Lymphocytes # (Auto) 2.9 x10^3/uL (1.0-4.8) Monocytes # (Auto) 0.4 x10^3/uL (0.0-1.1) Eosinophils # (Auto) 0.1 x10^3/uL (0.0-0.7) Basophils # (Auto) 0.0 x10^3/uL (0.0-0.2) Sodium Level 140 mmol/L (136-145) Potassium Level 3.7 mmol/L (3.5-5.1) Chloride Level 104 mmol/L (98-107) Carbon Dioxide Level 26 mmol/L (21-32) Anion Gap 10 (6-14) Blood Urea Nitrogen 15 mg/dL (7-20) Creatinine 0.6 mg/dL (0.6-1.0) Estimated GFR (Cockcroft-Gault) 121.4 BUN/Creatinine Ratio 25 (6-20) H Glucose Level 92 mg/dL (70-99) Calcium Level 8.8 mg/dL (8.5-10.1) Total Bilirubin 0.6 mg/dL (0.2-1.0) Aspartate Amino Transferase (AST) 11 U/L (15-37) L Alanine Aminotransferase (ALT) 9 U/L (14-59) L Alkaline Phosphatase 71 U/L (46-116) Troponin I Quantitative < 0.017 ng/mL (0.000-0.055) US-Yse-F-Type Natriuretic Peptide 263 pg/mL (0-124) H Total Protein 6.7 g/dL (6.4-8.2) Albumin 3.7 g/dL (3.4-5.0) Albumin/Globulin Ratio 1.2 (1.0-1.7) Laboratory Tests 09/26/19 18:33 Laboratory Tests 09/26/19 18:33 EKG EKG [] Radiology/Procedures Radiology/Procedures [] Course & Med Decision Making Course & Med Decision Making Pertinent Labs and Imaging studies reviewed. (See chart for details) [] 64-year-old female presents to the emergency Department complaints of chest pain left-sided/sharp. She states started early this morning has been intermittent throughout the day, states Tylenol and Motrin are not improving the pain. She was recently admitted at this facility within the last 2 weeks with similar complaints. Cardiac enzymes at that time 3 were unremarkable. Patient was diagnosed with muscular skeletal chest pain. Patient was recommended follow up as an outpatient with her primary care physician and cardiology. She denies any shortness breath, nausea, vomiting. She has had cardiac workup at was records obtained with last admission. Nothing makes her pain worse, nothing makes her pain better. He does have underlying history of hypertension, hyperlipidemia, anxiety, schizophrenia. She denies any headache, visual change, abdominal pain. Pain does not radiate. Labs/Imaging reviewed Cardiac enzymes negative - recent admit with cardiac work up negative. Enzymes x 3 at that time negative Toradol given here in ER with improvement. Recommend dc home and follow up with PCP as scheduled and Cardiology at Discussed return precautions with patient Terrance Disclaimer Dragon Disclaimer This electronic medical record was generated, in whole or in part, using a voice recognition dictation system. Departure Departure Impression: Primary Impression: Chest pain Additional Impressions: HTN (hypertension) HLD (hyperlipidemia) Disposition: 01 HOME, SELF-CARE Condition: IMPROVED Referrals: UNKNOWN PCP NAME (PCP) Patient Instructions: Chest Wall Pain Additional Instructions: Recommend dc home Cardiac enzymes negative here, recent cardiac workup with negative enzymes Chest xray negative for acute process Recommend following up with PCP as scheduled and Cardiology at [facility] for musculoskeletal pain Problem Qualifiers Primary Impression: Chest pain Chest pain type: intercostal pain Qualified Codes: R07.82 - Intercostal p ain Additional Impressions: HTN (hypertension) Hypertension type: essential hypertension Qualified Codes: I10 - Essential (primary) hypertension HLD (hyperlipidemia) Hyperlipidemia type: unspecified Qualified Codes: E78.5 - Hyperlipidemia, unspecified MARIA ALEJANDRA PAULINO MD Sep 26, 2019 18:32
[2019-09-26] MEDS ORDERED: KETOROLAC 30 MG/ML VIAL. IVP ONE (18:45)
[2019-09-26 18:53] LABS: BASO % 1 % (0-3); EOS # 0.1 x10^3/uL (0.0-0.7); EOS % 2 % (0-3); HEMATOCRIT 34.4 % (36.0-47.0); HEMOGLOBIN 11.2 g/dL (12.0-15.5); LYMPH # 2.9 x10^3/uL (1.0-4.8); LYMPH % 58 % (24-48); MEAN CORPUSCULAR HEMOGLOBIN 29 pg (25-35); MEAN CORPUSCULAR HGB CONC 33 g/dL (31-37); MEAN CORPUSCULAR VOLUME 88 fL (79-100); MONO # 0.4 x10^3/uL (0.0-1.1); MONO % 8 % (0-9); NEUT # 1.6 x10^3/uL (1.8-7.7); NEUT % 32 % (31-73); PLATELET COUNT 274 x10^3/uL (140-400); RED CELL DISTRIBUTION WIDTH 15.3 % (11.5-14.5); WHITE BLOOD COUNT 5.1 x10^3/uL (4.0-11.0)
[2019-09-26 19:00] VITALS: BP 163/73
[2019-09-26 19:07] LABS: CALCIUM 8.8 mg/dL (8.5-10.1); CREATININE 0.6 mg/dL (0.6-1.0); GFR 121.4; POTASSIUM 3.7 mmol/L (3.5-5.1)
--- NOTE | 2019-09-26 19:10 | RAD ---
EXAM: PORTABLE CHEST 1V INDICATION: chest pain. TECHNIQUE: Single view COMPARISON: 09/21/19 cxr FINDINGS: The heart size is normal.Post CABG surgical changes are present. The great vessels appear unremarkable. There is no hilar or mediastinal mass. The lungs are clear. There is no pleural effusion or pneumothorax. There are no significant osseous abnormalities. IMPRESSION: No active cardiopulmonary disease. Electronically signed by: Lang Herrera MD (09/26/2019 7:07 PM) [id number]
[2019-09-26 19:13] LABS: ALBUMIN 3.7 g/dL (3.4-5.0); ALBUMIN/GLOBULIN RATIO 1.2 (1.0-1.7); TOTAL BILIRUBIN 0.6 mg/dL (0.2-1.0); TOTAL PROTEIN 6.7 g/dL (6.4-8.2)
[2019-09-26] MEDS ORDERED: DICL50TA4 PO (19:34)
--- NOTE | 2019-09-27 06:11 | EKG ---
[facility] [address] [place] [address] Test Date: 2019-09-26 Test Time: 18:07:09 Pat Name: ADE NOVAK Department: Room: Gender: F Meal Room Hand: : 1955 Requested By: MARIA ALEJANDRA PAULINO Order Number: [id number] Reading MD: Measurements Intervals [place] Rate: 58 P: 19 MN: 168 QRS: -7 QRSD: 80 T: 109 QT: 426 QTc: 422 Interpretive Statements SINUS RHYTHM LEFT ATRIAL ABNORMALITY LEFTWARD AXIS LVH WITH REPOLARIZATION ABNORMALITY ABNORMAL ECG RI6.01 No previous ECG available for comparison
== END 2019-09-26 19:49 | disposition home or self-care (01) ==
LOC: ER 17:52
DX: R07.89 Other chest pain (principal); I10 Essential (primary) hypertension; E78.00 Pure hypercholesterolemia, unspecified; E78.5 Hyperlipidemia, unspecified; J45.909 Unspecified asthma, uncomplicated; I25.10 Atherosclerotic heart disease of native coronary artery without angina pectoris; I25.2 Old myocardial infarction; Z87.891 Personal history of nicotine dependence; Z95.1 Presence of aortocoronary bypass graft; Z88.5 Allergy status to narcotic agent
CPT/HCPCS: 36415; 71045; 80053; 83880; 84484; 85025; 93005; 96374; 99285; J1885

== ENCOUNTER 2019-10-07 16:33 | Emergency (ER) | payer OTHER ==
[~2019-10-07] VITALS: Ht 162.6 cm; Wt 75.0 kg
[~2019-10-07 16:33] MED LIST changes: +DICL50TA4 PO
[2019-10-07] MEDS ORDERED: NITROGLYCERIN SUBLINGUAL 0.4 MG BOTTLE OF 25. SL PRN (17:00)
[2019-10-07] MEDS ORDERED: ASPIRIN CHEWABLE 81 MG TABLET. PO ONE (17:00)
[2019-10-07 17:04] LABS: BASO % 0 % (0-3); EOS # 0.1 x10^3/uL (0.0-0.7); EOS % 2 % (0-3); HEMOGLOBIN 12.2 g/dL (12.0-15.5); LYMPH # 2.4 x10^3/uL (1.0-4.8); LYMPH % 56 % (24-48); MEAN CORPUSCULAR HEMOGLOBIN 30 pg (25-35); MEAN CORPUSCULAR HGB CONC 34 g/dL (31-37); MEAN CORPUSCULAR VOLUME 88 fL (79-100); MONO # 0.3 x10^3/uL (0.0-1.1); MONO % 7 % (0-9); NEUT # 1.5 x10^3/uL (1.8-7.7); NEUT % 35 % (31-73); PLATELET COUNT 272 x10^3/uL (140-400); RED CELL DISTRIBUTION WIDTH 15.2 % (11.5-14.5); WHITE BLOOD COUNT 4.2 x10^3/uL (4.0-11.0)
--- NOTE | 2019-10-07 17:09 | PHYS DOC ---
Past Medical History Past Medical History: Asthma, CAD, High Cholesterol, Hypertension, [place], Other Additional Past Medical Histor: huntingtons Past Surgical History: Coronary Bypass Surgery, , Other Additional Past Surgical Histo: 're-did my valves',OPEN HEART, bypass in L leg Smoking Status: Former Smoker Alcohol Use: None Drug Use: None Adult General Chief Complaint Chief Complaint: CHEST PAIN HPI HPI Patient is a 64 year old male with history of hypertension, discectomy, coronary artery disease status post CABG, asthma, huntingtons who presents with complaining of chest pain. Patient complaining of left side of chest and upper abdomen since last night and constant sharp pain without radiation, shortness of breath, dizziness, nausea vomiting, paresthesia. Patient rated her pain 10 over 10 and states she took nitroglycerin 1 last night without change of her pain. Patient has recent hospitalization with chest pain 2 weeks ago without abnormal finding. Patient had frequent emergency room visits and hospitalization with diagnose of chest pain. Review of Systems Review of Systems Constitutional: Denies fever or chills [] Eyes: Denies change in visual acuity, redness, or eye pain [] HENT: Denies nasal congestion or sore throat [] Respiratory: Denies cough or shortness of breath [] Cardiovascular: No additional information not addressed in HPI [] GI: Denies abdominal pain, nausea, vomiting, bloody stools or diarrhea [] : Denies dysuria or hematuria [] Musculoskeletal: Denies back pain or joint pain [] Integument: Denies rash or skin lesions [] Neurologic: Denies headache, focal weakness or sensory changes [] Endocrine: Denies polyuria or polydipsia [] All other systems were reviewed and found to be within normal limits, except as documented in this note. Current Medications Current Medications Current Medications Medications (Trade) Dose Ordered Sig/[facility] Start Time Stop Time Status Last Admin Dose Admin Aspirin (Children'S Aspirin) 324 mg 1X ONCE 10/07/19 17:00 10/07/19 17:01 DC 10/07/19 17:19 324 MG Multi-Ingredient Mouthwash/Gargle (Gi Cocktail) 20 ml 1X ONCE 10/07/19 17:45 10/07/19 17:46 DC 10/07/19 17:37 20 ML Nitroglycerin (Nitrostat) 0.4 mg PRN Q5MIN PRN 10/07/19 17:00 10/07/19 17:51 DC Allergies Allergies Allergies Coded Allergies Type Severity Reaction Last Updated Verified hydrocodone Allergy Intermediate Itching 10/25/16 Yes Physical Exam Physical Exam Constitutional: Well developed, well nourished, mild distress, non-toxic appearance. [] HENT: Normocephalic, atraumatic. Eyes: PERRLA, EOMI, conjunctiva normal, no discharge. [] Neck: Normal range of motion, no tenderness, supple, no stridor. [] Cardiovascular:Heart rate regular rhythm, no murmur [] Lungs & Thorax: Bilateral breath sounds clear to auscultation [] Abdomen: Bowel sounds normal, soft, no tenderness, no masses, no pulsatile masses. [] Skin: Warm, dry, no erythema, no rash. [] Back: No tenderness, no CVA tenderness. [] Extremities: No tenderness, no cyanosis, no clubbing, ROM intact, no edema. [] Neurologic: Alert and oriented X 3, no focal deficits noted. [] Psychologic: Affect normal, judgement normal, mood normal. [] Current Patient Data Lab Values Laboratory Tests Test 10/07/19 16:55 White Blood Count 4.2 x10^3/uL (4.0-11.0) Red Blood Count 4.10 x10^6/uL (3.50-5.40) Hemoglobin 12.2 g/dL (12.0-15.5) Hematocrit 36.0 % (36.0-47.0) Mean Corpuscular Volume 88 fL (79-100) Mean Corpuscular Hemoglobin 30 pg (25-35) Mean Corpuscular Hemoglobin Concent 34 g/dL (31-37) Red Cell Distribution Width 15.2 % (11.5-14.5) H Platelet Count 272 x10^3/uL (140-400) Neutrophils (%) (Auto) 35 % (31-73) Lymphocytes (%) (Auto) 56 % (24-48) H Monocytes (%) (Auto) 7 % (0-9) Eosinophils (%) (Auto) 2 % (0-3) Basophils (%) (Auto) 0 % (0-3) Neutrophils # (Auto) 1.5 x10^3/uL (1.8-7.7) L Lymphocytes # (Auto) 2.4 x10^3/uL (1.0-4.8) Monocytes # (Auto) 0.3 x10^3/uL (0.0-1.1) Eosinophils # (Auto) 0.1 x10^3/uL (0.0-0.7) Basophils # (Auto) 0.0 x10^3/uL (0.0-0.2) Prothrombin Time 12.7 SEC (11.7-14.0) Prothrombin Time INR 1.0 (0.8-1.1) Sodium Level 141 mmol/L (136-145) Potassium Level 3.5 mmol/L (3.5-5.1) Chloride Level 104 mmol/L (98-107) Carbon Dioxide Level 27 mmol/L (21-32) Anion Gap 10 (6-14) Blood Urea Nitrogen 14 mg/dL (7-20) Creatinine 0.9 mg/dL (0.6-1.0) Estimated GFR (Cockcroft-Gault) 76.0 BUN/Creatinine Ratio 16 (6-20) Glucose Level 146 mg/dL (70-99) H Calcium Level 9.0 mg/dL (8.5-10.1) Magnesium Level 1.7 mg/dL (1.8-2.4) L Total Bilirubin 1.1 mg/dL (0.2-1.0) H Aspartate Amino Transferase (AST) 11 U/L (15-37) L Alanine Aminotransferase (ALT) 13 U/L (14-59) L Alkaline Phosphatase 79 U/L (46-116) Creatine Kinase 64 U/L (26-192) Troponin I Quantitative < 0.017 ng/mL (0.000-0.055) RI-Ufs-K-Type Natriuretic Peptide 392 pg/mL (0-124) H Total Protein 7.3 g/dL (6.4-8.2) Albumin 3.8 g/dL (3.4-5.0) Albumin/Globulin Ratio 1.1 (1.0-1.7) Lipase 142 U/L (73-393) Laboratory Tests 10/07/19 16:55 Laboratory Tests 10/07/19 16:55 EKG EKG EKG at 1645 showed sinus bradycardia at rate of 58, left atrial abnormality, left lira axis, LVH with repolarization abnormality, no acute ST-T wave elevation. Unchanged from EKG dated 05/08/2019. Radiology/Procedures Radiology/Procedures [facility] [address] [place] [address] IMAGING REPORT Signed PATIENT: ADE NOVAK ACCOUNT: [id number] : 1955 LOCATION: ER AGE: 64 SEX: F EXAM STATUS: PRE ER ORD. PHYSICIAN: KIARA MOFFETT MD REASON: chest pain PROCEDURE: PORTABLE CHEST 1V Exam: Chest one view INDICATION: Chest pain TECHNIQUE: Frontal view of chest Comparisons: 09/26/2019 FINDINGS: Sternotomy wires are noted. Surgical clips overlying the left heart border. The cardiomediastinal silhouette and pulmonary vessels are within normal limits. The lung and pleural spaces are clear. IMPRESSION: No acute pulmonary process. Electronically signed by: Law Cuello MD (10/07/2019 5:15 PM) [id number] DICTATED and SIGNED BY: LAW CUELLO MD DATE: 10/07/19 1715 Course & Med Decision Making Course & Med Decision Making Pertinent Labs and Imaging studies reviewed. (See chart for details) Evaluation of patient in ER showed 64-year-old male patient with oxycodone for and frequent emergency room visits and hospitalization for chest pain with co mplaining of chest pain since last night without other symptoms. Patient had unremarkable physical exam. She rated her pain 10 over 10. Patient treated with nitroglycerin without change of her pain but felt better with GI cocktail. Patient currently taking omeprazole and was advised to continue her home medication and follow up with her primary care physician and coater associate. I've spoken with the patient and/or caregivers. I've explained the patient's condition, diagnosis and treatment plan based on information available to me at this time. I've answered the patient's and/or caregivers questions and addressed any concerns. The patient and/or caregivers have a good understanding the patient's diagnosis, condition and treatment plan as can be expected at this point. Vital signs have been stabilized. The patient's condition is stable for discharge from the emergency department. The patient will pursue further outpatient evaluation with her primary care provider or other designated consulting physician as outlined in the discharge instructions. Patient and/or caregivers are agreeable to this plan of care and follow-up instructions have been explained in detail. The patient and/or caregivers have received these instructions in written format and expressed understanding of these discharge instructions. The patient and her caregivers are aware that if any significant change in condition or worsening of symptoms should prompt him to immediately return to this of the closest emergency department. If an emergent department is not readily available I would encour age him to call 911. [place] Disclaimer Dragon Disclaimer This electronic medical record was generated, in whole or in part, using a voice recognition dictation system. Departure Departure Impression: Primary Impression: Non-cardiac chest pain Additional Impression: Hypomagnesemia Disposition: HOME, SELF-CARE Condition: STABLE Referrals: UNKNOWN PCP NAME (PCP) Patient Instructions: Hypomagnesemia, Musculoskeletal Pain Additional Instructions: Continue home medication Follow-up with your primary care physician in 3-5 days Return to ER if not getting better Thank you for visiting [facility]. We appreciate you trusting us with your care. If any additional problems come up don't hesitate to return to visit us. Please follow up with your primary care provider so they can plan additional care if needed and know about the problem that you had. If symptoms worsen come back to the Emergency Department. Any concerning symptoms that start such as chest pain, shortness of air, weakness or numbness on one side of the body, running high fevers or any other concerning symptoms return to the ER. The HEART Score for CP Pts HEART Score for Chest Pain: HEART Score for Chest Pain Response (Comments) Value History Slighlty/Non-Suspicious 0 ECG Nonspecific Repolarizatio 1 Age >45 - < 65 1 Risk Factors >3 Risk Factors or Hx CAD 2 Troponin < Normal Limit 0 Total 4 Risk Factors: Risk Factors: DM, Current or recent (<one month) smoker, HTN, HLP, family history of CAD, obesity. Risk Scores: Score 0 - 3: 2.5% MACE over next 6 weeks - Discharge Home Score 4 - 6: 20.3% MACE over next 6 weeks - Admit for Clinical Observation Score 7 - 10: 72.7% MACE over next 6 weeks - Early Invasive Strategies Problem Qualifiers KIARA MOFFETT MD Oct 07, 2019 17:09
[2019-10-07 17:12] LABS: CREATININE 0.9 mg/dL (0.6-1.0); POTASSIUM 3.5 mmol/L (3.5-5.1); PROTHROMBIN TIME PATIENT 12.7 SEC (11.7-14.0)
[2019-10-07 17:15] VITALS: BP 104/61
[2019-10-07 17:18] LABS: ALBUMIN 3.8 g/dL (3.4-5.0); ALBUMIN/GLOBULIN RATIO 1.1 (1.0-1.7); MAGNESIUM 1.7 mg/dL (1.8-2.4); TOTAL BILIRUBIN 1.1 mg/dL (0.2-1.0); TOTAL PROTEIN 7.3 g/dL (6.4-8.2)
--- NOTE | 2019-10-07 17:18 | RAD ---
Exam: Chest one view INDICATION: Chest pain TECHNIQUE: Frontal view of chest Comparisons: 09/26/2019 FINDINGS: Sternotomy wires are noted. Surgical clips overlying the left heart border. The cardiomediastinal silhouette and pulmonary vessels are within normal limits. The lung and pleural spaces are clear. IMPRESSION: No acute pulmonary process. Electronically signed by: Law Krishna MD (10/07/2019 5:15 PM) [id number]
[2019-10-07] MEDS ORDERED: LIDO:MAALOX 1:1 20 ML SINGLE DOSE. SWSW ONE (17:45)
--- NOTE | 2019-10-07 18:36 | EKG ---
[facility] [address] [place] [address] Test Date: 2019-10-07 Test Time: 16:45:20 Pat Name: ADE NOVAK Department: Room: Gender: F Program Administrator: : 1955 Requested By: KIARA MOFFETT Order Number: [id number] Reading MD: Measurements Intervals [place] Rate: 58 P: 66 [place]: 178 QRS: -5 QRSD: 80 T: 124 QT: 438 QTc: 434 Interpretive Statements SINUS RHYTHM LEFT ATRIAL ABNORMALITY LEFTWARD AXIS LVH WITH REPOLARIZATION ABNORMALITY ABNORMAL ECG RI6.01 No previous ECG available for comparison
== END 2019-10-07 17:43 | disposition home or self-care (01) ==
LOC: ER 16:33
DX: R07.89 Other chest pain (principal); E83.42 Hypomagnesemia; E78.00 Pure hypercholesterolemia, unspecified; I25.10 Atherosclerotic heart disease of native coronary artery without angina pectoris; J45.909 Unspecified asthma, uncomplicated; I10 Essential (primary) hypertension; I25.2 Old myocardial infarction; Z87.891 Personal history of nicotine dependence; Z95.1 Presence of aortocoronary bypass graft; Z88.5 Allergy status to narcotic agent
CPT/HCPCS: 36415; 71045; 80053; 82550; 83690; 83735; 83880; 84484; 85025; 85610; 93005; 99285-25

== ENCOUNTER 2020-01-24 23:23 | Observation (INO) | payer OTHER ==
[~2020-01-24] VITALS: Ht 157.5 cm; Wt 62.0 kg
[~2020-01-24 23:23] MED LIST changes: +CALC200T3 PO; +FAMO40TA4 PO; +TIZA4TAB2 PO
--- NOTE | 2020-01-24 23:34 | PHYS DOC ---
Past Medical History Past Medical History: Asthma, CAD, High Cholesterol, Hypertension, ID, Other Additional Past Medical Histor: huntingtons Past Surgical History: Coronary Bypass Surgery, , Other Additional Past Surgical Histo: 're-did my valves',OPEN HEART, bypass in L leg Smoking Status: Former Smoker Alcohol Use: None Drug Use: None General Adult EDM: Chief Complaint: CHEST PAIN HPI: HPI: Patient is a 64 year old female who presents for evaluation of chest pain and chest pressure worse on the left side of the chest. Symptoms been progressing for about 2 days. She has had pain in the past several times and was last evaluated at this facility about a month ago. Patient has a significant cardiac history as well as open heart surgery in the year 1999. 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 Patient has a history of repetitive muscle movements and states she has [place]'s. Patient does not currently smoke tobacco. No reported cough, fever or chills Review of Systems: Review of Systems: Constitutional: Denies fever or chills. [] Eyes: Denies change in visual acuity. [] HENT: Denies nasal congestion or sore throat. [] Respiratory: Denies cough has shortness of breath. [] Cardiovascular: has chest pain no edema. [] GI: Denies abdominal pain, nausea, vomiting, bloody stools or diarrhea. [] : Denies dysuria. [] Musculoskeletal: Denies back pain or joint pain. [] Integument: Denies rash. [] Neurologic: Denies headache, focal weakness or sensory changes. [] Endocrine: Denies polyuria or polydipsia. [] Lymphatic: Denies swollen glands. [] Psychiatric: Denies depression or anxiety. [] Heart Score: HEART Score for Chest Pain: HEART Score for Chest Pain Response (Comments) Value History Moderately Suspicious 1 ECG Nonspecific Repolarizatio 1 Age > 65 2 Risk Factors >3 Risk Factors or Hx CAD 2 Troponin < Normal Limit 0 Total 6 Risk Factors: Risk Factors: DM, Current or recent (<one month) smoker, HTN, HLP, family history of CAD, obesity. Risk Scores: Score 0 - 3: 2.5% MACE over next 6 weeks - Discharge Home Score 4 - 6: 20.3% MACE over next 6 weeks - Admit for Clinical Observation Score 7 - 10: 72.7% MACE over next 6 weeks - Early Invasive Strategies Current Medications: Current Medications Medications (Trade) Dose Ordered Sig/Jody Start Time Stop Time Status Last Admin Dose Admin Aspirin (Aspirin Chewable) 324 mg 1X ONCE 01/24/20 23:45 01/24/20 23:46 Allergies: Allergies: Allergies Coded Allergies Type Severity Reaction Last Updated Verified hydrocodone Allergy Intermediate Itching 10/25/16 Yes Physical Exam: PE: Constitutional: Well developed, well nourished, mild distress, non-toxic appearance. [] HENT: Normocephalic, atraumatic, bilateral external ears normal, oropharynx moist, no oral exudates, nose normal. [] Eyes: PERRL, EOMI, conjunctiva normal, no discharge. [] Neck: Normal range of motion, no tenderness, supple, no stridor. [] Cardiovascular:Heart rate regular rhythm, murmur [] Lungs & Thorax: Bilateral breath sounds clear to auscultation [] Abdomen: Bowel sounds normal, soft, no tenderness, no masses, no pulsatile masses. [] Skin: Warm, dry, no erythema, no rash. [] Back: No tenderness, no CVA tenderness. [] Extremities: No tenderness, no cyanosis, ROM intact, no edema. [] Neurologic: Alert and oriented X 3, normal motor function, normal sensory function, no focal deficits noted. [] Psychologic: Affect normal, judgement normal, mood normal. [] Current Patient Data: Labs: Laboratory Tests Test 01/24/20 23:35 01/24/20 23:40 White Blood Count 5.6 x10^3/uL Red Blood Count 4.01 x10^6/uL Hemoglobin 11.9 g/dL Hematocrit 35.5 % Mean Corpuscular Volume 89 fL Mean Corpuscular Hemoglobin 30 pg Mean Corpuscular Hemoglobin Concent 34 g/dL Red Cell Distribution Width 14.7 % Platelet Count 272 x10^3/uL Neutrophils (%) (Auto) 35 % Lymphocytes (%) (Auto) 55 % Monocytes (%) (Auto) 8 % Eosinophils (%) (Auto) 2 % Basophils (%) (Auto) 1 % Neutrophils # (Auto) 1.9 x10^3/uL Lymphocytes # (Auto) 3.1 x10^3/uL Monocytes # (Auto) 0.5 x10^3/uL Eosinophils # (Auto) 0.1 x10^3/uL Basophils # (Auto) 0.1 x10^3/uL Sodium Level 143 mmol/L Potassium Level 3.9 mmol/L Chloride Level 103 mmol/L Carbon Dioxide Level 30 mmol/L Anion Gap 10 Blood Urea Nitrogen 15 mg/dL Creatinine 1.2 mg/dL Estimated GFR (Cockcroft-Gault) 54.6 BUN/Creatinine Ratio 13 Glucose Level 102 mg/dL Calcium Level 9.0 mg/dL Total Bilirubin 0.5 mg/dL Aspartate Amino Transf (AST/SGOT) 16 U/L Alanine Aminotransferase (ALT/SGPT) 18 U/L Alkaline Phosphatase 84 U/L Troponin I Quantitative < 0.017 ng/mL Total Protein 6.7 g/dL Albumin 3.9 g/dL Albumin/Globulin Ratio 1.4 Lipase 137 U/L Bedside Troponin I 0.01 ng/ml Current Medications Medications (Trade) Dose Ordered Sig/Jody Route PRN Reason Start Time Stop Time Status Last Admin Dose Admin Aspirin (Aspirin Chewable) 324 mg 1X ONCE PO 01/24/20 23:45 01/24/20 23:46 DC 01/24/20 23:34 EKG: EKG: Normal sinus rhythm, rate 62, cannot exclude anterior lateral ischemia, LVH, not STEMI read at 2333 [] Radiology/Procedures: Radiology/Procedures: [[facility] [address] [place] [address] IMAGING REPORT Signed PATIENT: ADE NOVAK ACCOUNT: [id number] : 1955 LOCATION: ER AGE: 64 SEX: F EXAM STATUS: REG ER ORD. PHYSICIAN: TONNY ALBRIGHT DO REASON: chest pain PROCEDURE: PORTABLE CHEST 1V AP portable chest radiograph 01/24/2020 Clinical History: Chest pain. An AP erect portable digital radiograph of the chest was obtained. Comparison study is dated 01/03/2020. The Patient is post median sternotomy. The cardiac silhouette is borderline enlarged. The thoracic aorta is tortuous. Atherosclerotic calcification thoracic aorta is seen. No acute pulmonary infiltrate is noted. No pneumothorax or pleural effusion is seen. The osseous structures are unchanged. Impression: No acute abnormality is seen. Electronically signed by: Bladimir Escudero MD (01/25/2020 12:04 AM) [id number] DICTATED and SIGNED BY: BLADIMIR ESCUDERO MD DATE: 01/25/20 0004 ] Course & Med Decision Making: Course & Med Decision Making Pertinent Labs and Imaging studies reviewed. (See chart for details) [] Dragon Disclaimer: Dragon Disclaimer: This electronic medical record was generated, in whole or in part, using a voice recognition dictation system. 0018 chest pain improved but not resolved. Initial cardiac lab, EKG and chest x-ray were unremarkable. The cause of her chest pain is unclear. Because of her history will admit for chest pain observation. The on-call physician is Dr. Davila. Patient's EKG is unchanged from multiple prior old EKGs Departure Departure Impression: Primary Impression: Precordial chest pain Disposition: ADMITTED INPATIENT Admitting Physician: MARISOL Condition: STABLE Referrals: UNKNOWN PCP NAME (PCP) Justicifation of Admission Dx: Justifications for Admission: Justification of Admission Dx: Yes Angina: Sym[facility] at [facility] TONNY ALBRIGHT DO Jan 24, 2020 23:34
[2020-01-24] MEDS ORDERED: ASPIRIN CHEWABLE 81 MG TABLET. PO ONE (23:45)
[2020-01-24 23:48] LABS: BASO # 0.1 x10^3/uL (0.0-0.2); BASO % 1 % (0-3); EOS # 0.1 x10^3/uL (0.0-0.7); EOS % 2 % (0-3); HEMATOCRIT 35.5 % (36.0-47.0); HEMOGLOBIN 11.9 g/dL (12.0-15.5); LYMPH # 3.1 x10^3/uL (1.0-4.8); LYMPH % 55 % (24-48); MEAN CORPUSCULAR HEMOGLOBIN 30 pg (25-35); MEAN CORPUSCULAR HGB CONC 34 g/dL (31-37); MEAN CORPUSCULAR VOLUME 89 fL (79-100); MONO # 0.5 x10^3/uL (0.0-1.1); MONO % 8 % (0-9); NEUT # 1.9 x10^3/uL (1.8-7.7); NEUT % 35 % (31-73); PLATELET COUNT 272 x10^3/uL (140-400); RED BLOOD COUNT 4.01 x10^6/uL (3.50-5.40); RED CELL DISTRIBUTION WIDTH 14.7 % (11.5-14.5); WHITE BLOOD COUNT 5.6 x10^3/uL (4.0-11.0)
[2020-01-24 23:56] LABS: CREATININE 1.2 mg/dL (0.6-1.0); GFR 54.6; POTASSIUM 3.9 mmol/L (3.5-5.1)
[2020-01-25 00:01] LABS: ALBUMIN 3.9 g/dL (3.4-5.0); ALBUMIN/GLOBULIN RATIO 1.4 (1.0-1.7); TOTAL BILIRUBIN 0.5 mg/dL (0.2-1.0); TOTAL PROTEIN 6.7 g/dL (6.4-8.2)
--- NOTE | 2020-01-25 00:07 | RAD ---
AP portable chest radiograph 01/24/2020 Clinical History: Chest pain. An AP erect portable digital radiograph of the chest was obtained. Comparison study is dated 01/03/2020. The Patient is post median sternotomy. The cardiac silhouette is borderline enlarged. The thoracic aorta is tortuous. Atherosclerotic calcification thoracic aorta is seen. No acute pulmonary infiltrate is noted. No pneumothorax or pleural effusion is seen. The osseous structures are unchanged. Impression: No acute abnormality is seen. Electronically signed by: Bladimir Escudero MD (01/25/2020 12:04 AM) [id number]
[2020-01-25] MEDS ORDERED: LORazepam 0.5 MG TABLET PO ONE (00:45)
[2020-01-25] MEDS ORDERED: ONDANSETRON PF 4 MG/2 ML VIAL. IV PRN ×2 (01:15→14:30)
--- NOTE | 2020-01-25 01:40 | NUR ---
The patient, ADE NOVAK, 64 y/o, F admitted by LYUBOV BAH MD, was given written information regarding hospital policies, unit procedures and contact persons. Valuables were checked. Patient settled into room. Admission assessment completed
--- NOTE | 2020-01-25 02:15 | NUR ---
Patient is requesting Trazodone 50mg at HS, she takes at night for sleep. Patient has complaints of pain 10/10 in left chest. is worse when she gets up and moves around. She has had this pain for a couple of days. RN paged Dr Davila.
[2020-01-25] MEDS ORDERED: traZODone 50 MG TABLET. PO PRN (03:00)
[2020-01-25] MEDS: traMADol 50 MG TABLET PO PRN ×4 (03:22→19:37)
[2020-01-25 03:23] VITALS: BP 159/79
[2020-01-25 07:00] VITALS: BP 159/79
--- NOTE | 2020-01-25 07:52 | EKG ---
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
[2020-01-25] MEDS ORDERED: NITROGLYCERIN SUBLINGUAL 0.4 MG BOTTLE OF 25. SL PRN (08:00)
--- NOTE | 2020-01-25 10:03 | PDOC2 ---
GABY COOPER HEAD STOCK OPERATOR 01/25/20 1003: CARDIAC CONSULT DATE OF CONSULT Date of Consult DATE: 01/25/20 TIME: 09:53 REASON FOR CONSULT Reason for Consult: Chest pain REFERRING PHYSICIAN Referring Physician: Rina SOURCE Source: Chart review, Patient HISTORY OF PRESENT ILLNESS HISTORY OF PRESENT ILLNESS This is a pleasant 64 yo female admitted for complains of chest pain. Reports of chest tightness left chest nonradiating but at the same also has MSK component as this is also reproducible.This started yesterday at home and lasted till she got to ED. There is no associated n/v, SOA, diaphoresis. No recent falls or injury but significant for gross motor jerky movements associated with hx of [place] chorea. She does have NTG at home but does not take claiming it does not work and possibly . She also take NSAIDs appears to be both diclofenac and aleve with use of ASA as well. She has bilateral renal stenosis that has not been addressed based on her recollection and this was noted via CT 04/2019. She does not take her BP at all and her BP was mildly labile as an inpt. Claimed that she just saw cardiology about 2 weeks ago. No recent echo. PAST MEDICAL HISTORY Past Medical History Cardiovascular: CAD, HTN, Hyperlipidemia Pulmonary: Asthma CENTRAL NERVOUS SYSTEM: Other (charbel chorea) GI: GERD Psych: Schizophrenia (?denies, not on any meds) Renal: Bilateral IRA noted on CTA 04/2019 PAST SURGICAL HISTORY Past Surgical History CABG (1999), Other ([facility] ) FAMILY HISTORY Family History noncontributory SOCIAL HISTORY Smoke: No ALCOHOL: none Drugs: None Lives: with Family CURRENT MEDICATIONS CURRENT MEDICATIONS Current Medications Medications (Trade) Dose Ordered Sig/Jody Route PRN Reason Start Time Stop Time Status Last Admin Dose Admin Aspirin (Aspirin Chewable) 324 mg 1X ONCE PO 01/24/20 23:45 01/24/20 23:46 DC 01/24/20 23:34 Lorazepam (Ativan) 0.5 mg 1X ONCE PO 01/25/20 00:45 01/25/20 00:46 DC 01/25/20 00:50 Trazodone HCl (Desyrel) 25 mg PRN QHS PRN PO INSOMNIA 01/25/20 03:00 01/25/20 03:17 Tramadol HCl (Ultram) 50 mg PRN Q4HRS PRN PO MODERATE PAIN 4-6 01/25/20 03:00 01/25/20 08:20 Nitroglycerin (Nitrostat) 0.4 mg PRN Q5MIN PRN SL CHEST PAIN 01/25/20 08:00 01/25/20 08:22 ALLERGIES ALLERGIES: Coded Allergies: hydrocodone (Verified Allergy, Intermediate, Itching, 10/25/16) swelling, itching ROS Review of System 14 point ROS evaluated with pertinent positives noted per HPI PHYSICAL EXAM General: Alert, Oriented X3, Cooperative, No acute distress HEENT: Atraumatic, Mucous membr. moist/pink Lungs: Clear to auscultation, Normal air movement Heart: Regular rate (SR), Normal S1, Normal S2, No murmurs Abdomen: Soft, No tenderness Extremities: No cyanosis, No edema Skin: No breakdown, No significant lesion Neuro: Normal speech, Sensation intact Psych/Mental Status: Mental status NL, Mood NL MUSCULOSKELETAL: Osteoarthritic changes both hands, Other (gross motor extremity jerky movements) VITALS/I&O VITALS/I&O: Vital Signs Date Time Temp Pulse Resp B/P (MAP) Pulse Ox O2 Delivery O2 Flow Rate FiO2 01/25/20 08:22 68 178/84 01/25/20 08:20 18 95 Room Air 01/25/20 07:00 98.1 98.1 I & O 01/24/20 01/24/20 01/25/20 15:00 23:00 07:00 Intake Total 200 ml Balance 200 ml LABS Lab: Laboratory Tests Test 01/24/20 23:35 01/24/20 23:40 01/25/20 06:55 White Blood Count 5.6 x10^3/uL (4.0-11.0) Red Blood Count 4.01 x10^6/uL (3.50-5.40) Hemoglobin 11.9 g/dL (12.0-15.5) L Hematocrit 35.5 % (36.0-47.0) L Mean Corpuscular Volume 89 fL (79-100) Mean Corpuscular Hemoglobin 30 pg (25-35) Mean Corpuscular Hemoglobin Concent 34 g/dL (31-37) Red Cell Distribution Width 14.7 % (11.5-14.5) H Platelet Count 272 x10^3/uL (140-400) Neutrophils (%) (Auto) 35 % (31-73) Lymphocytes (%) (Auto) 55 % (24-48) H Monocytes (%) (Auto) 8 % (0-9) Eosinophils (%) (Auto) 2 % (0-3) Basophils (%) (Auto) 1 % (0-3) Neutrophils # (Auto) 1.9 x10^3/uL (1.8-7.7) Lymphocytes # (Auto) 3.1 x10^3/uL (1.0-4.8) Monocytes # (Auto) 0.5 x10^3/uL (0.0-1.1) Eosinophils # (Auto) 0.1 x10^3/uL (0.0-0.7) Basophils # (Auto) 0.1 x10^3/uL (0.0-0.2) Sodium Level 143 mmol/L (136-145) Potassium Level 3.9 mmol/L (3.5-5.1) Chloride Level 103 mmol/L (98-107) Carbon Dioxide Level 30 mmol/L (21-32) Anion Gap 10 (6-14) Blood Urea Nitrogen 15 mg/dL (7-20) Creatinine 1.2 mg/dL (0.6-1.0) H Estimated GFR (Cockcroft-Gault) 54.6 BUN/Creatinine Ratio 13 (6-20) Glucose Level 102 mg/dL (70-99) H Calcium Level 9.0 mg/dL (8.5-10.1) Total Bilirubin 0.5 mg/dL (0.2-1.0) Aspartate Amino Transferase (AST) 16 U/L (15-37) Alanine Aminotransferase (ALT) 18 U/L (14-59) Alkaline Phosphatase 84 U/L (46-116) Troponin I Quantitative < 0.017 ng/mL (0.000-0.055) < 0.017 ng/mL (0.000-0.055) Total Protein 6.7 g/dL (6.4-8.2) Albumin 3.9 g/dL (3.4-5.0) Albumin/Globulin Ratio 1.4 (1.0-1.7) Lipase 137 U/L (73-393) POC Troponin I 0.01 ng/ml (<0.08) Laboratory Tests 01/24/20 23:35 Laboratory Tests 01/24/20 23:35 ECHOCARDIOGRAM ECHOCARDIOGRAM STRESS TEST STRESS TEST FINDINGS: [facility] 11/17/2019 Pharmacological Stress Electrocardiogram: The patient's resting heart rate was 52 bpm and the resting blood pressure was 156/83. The patients peak stress heart rate was 98 bpm and the peak stress blood pressure was 138/71. The patient experienced no chest pain. The resting ECG shows Sinus rhythm with left ventricular hypertrophy and early repolarization. Following Regadenoson infusion there are no new diagnostic ECG changes. Conclusion: Pharmacologic stress ECG is negative for ischemia. Rgchbltfw-ry-Cnbnxjhkov Count Ratio: 0.29 (normal = or < 0.52). Scintigraphic Findings: Raw images reveal the left ventricular cavity is normal in size. There is normal pulmonary tracer uptake. There is a mild degree of breast attenuation present. No transient ischemic dilation is present. Tomographic images were reconstructed in three orthogonal views. There is a small sized partially reversible mild intensity defect seen in the apical septum with some improvement with stress upright imaging. All myocardial segments appear viable. Polar coordinate map identifies apical and mid anteroseptal perfusion abnormality. TID Ratio: 0.84 (normal <1.36). Summed Stress Score: 6 , Summed Rest Score: 2 Regional Wall Thickening and Motion Post Stress: There is normal left ventricular wall motion and thickening of all myocardial segments. Left Ventricular Ejection Fraction = 65 %. Left Ventricular End Diastolic Volume: 69 mL SUMMARY/OPINION: This study is abnormal with a small sized partially reversible defect in the mid to apical anteroseptal wall. There is no evidence of significant myocardial ischemia. Left ventricular systolic function is normal. There are no high risk prognostic indicators present. The pharmacologic ECG portion of the study is negative for ischemia. Sum stress score is 6. Studies compared to prior regadenoson thallium stress performed on 01/20/2019. Ejection fraction was calculated at 57%. The study was abnormal with partially reversible defect in the mid to apical anteroseptal and entire apex signifying prior injury and ischemia. Sum stress score was 11. Study was intermediate risk. The study appears unchanged and similar. In aggregate the current study is low risk in regards to predicted annual cardiovascular mortality rate HEART CATH HEART CATH SELECTIVE CORONARY ANGIOGRAPHY: [facility] 01/22/2019 The left main coronary artery is a large-caliber vessel which distally bifurcates into LAD and circumflex. The left main is free of angiographically- significant disease, but does have some extraluminal calcification noted. The LAD is a medium-caliber vessel which gives off 1 major diagonal branch. The proximal/ostial portion of the LAD has 50% stenosis. The proximal portion of the diagonal has 30% stenosis. There is competitive filling within the midportion of the LAD. The circumflex is a medium caliber, at least codominant vessel, which gives off 2 obtuse marginal branches. There is diffuse [id number] plaquing throughout the AV-groove segment. There is 30% stenosis at the bifurcation of the 1st obtuse marginal, involving both the AV groove segment and the obtuse marginal. In the distal AV groove, there is a 30% stenosis present. The remainder of the vessel has only mild plaquing. The right coronary artery is a small vessel which appears to be codominant, perhaps supplying the basal inferior segment. There is diffuse mild plaquing, but no significant disease is noted. COWAN to LAD: The left internal mammary artery graft anastomoses to the midportion of the vessel. The graft and the vessel beyond the anastomoses are widely patent without significant stenosis. IMPRESSION: Qagan Tay[place]in multivessel coronary disease. Patent COWAN to LAD. Normal LVEDP. ASSESSMENT/PLAN ASSESSMENT/PLAN 1. Chest pain: doubt ACS possibly MSK. Accelerated HTN is also part of the dif ferential 2. CAD: past CABG. LHC as noted above, clinically stable, trops nml EKG Sr unchanged by comparison 3. HTN: labile episodes 4. HLP 5. COPD: stable 6. Hx of [place] chorea 7. Bilateral IRA: noted via CTA 04/2019, this has not been addressed Recommendations TTE, Renal duplex Secondary prevention measures. Will adjust BP meds per trend Minimizing NSAID use advised MELVI SCOTT MD 01/25/20 1213: CARDIAC CONSULT ASSESSMENT/PLAN ASSESSMENT/PLAN Patient seen and examined. Agree with WRAPPER OFF's assessment and plan. Chest pain with atypical features and most probably musculoskeletal. Myocardial infarction has been ruled out. Recent Lexiscan nuclear stress test 11/2019 was a low risk study with only a small amount of ischemia. Cardiac catheterization 01/2019 showed patent COWAN to LAD without any lesions needing intervention. Resume home antihypertensives and titrate for better blood pressure control. Agree with renal arterial duplex scan for further evaluation. Thank you for your consultation. GABY COOPER APRN Jan 25, 2020 10:03 MELVI SCOTT MD Jan 25, 2020 12:13
--- NOTE | 2020-01-25 10:19 | PDOC1 ---
History and Physical Date of Admission Date of Admission DATE: 01/25/20 TIME: 10:18 Identification/Chief Complaint Chief Complaint seen in er with ANGINA , 64 year old female who presents for evaluation of chest pain and chest pressure worse on the left side of the chest. Symptoms been progressing for about 2 days. She has had pain in the past several times and was last evaluated at this facility about a month ago. Patient has a significant cardiac history as well as open heart surgery in the year 1999. Patient's medical transcription is at [facility]. Patient has a history of repetitive muscle movements and states she has Rani's. does not currently smoke tobacco. No reported cough, fever or chills ECHO PENDING Past Medical History Past Medical History Past Medical History Past Medical History: Asthma, CAD, High Cholesterol, Hypertension, NE, Other Additional Past Medical Histor: huntingtons Past Surgical History: Coronary Bypass Surgery, , Other Additional Past Surgical Histo: 're-did my valves',OPEN HEART, bypass in L leg Smoking Status: Former Smoker Alcohol Use: None Drug Use: None FHX COPD, HTN Cardiovascular: CAD, HTN, Hyperlipidemia Pulmonary: Asthma CENTRAL NERVOUS SYSTEM: Other GI: GERD Heme/Onc: No pertinent hx Psych: Anxiety, Schizophrenia Renal/: No pertinent hx Past Surgical History Past Surgical History: CABG, Other Family History Family History: Asthma, High Cholestrol, Hypertension Social History Smoke: No ALCOHOL: none Drugs: None Current Problem List Problem List Problems Medical Problems: (1) Precordial chest pain Status: Acute Current Medications Current Medications Current Medications Aspirin (Aspirin Chewable) 324 mg 1X ONCE PO Last administered on 01/24/20at 23:34; Start 01/24/20 at 23:45; Stop 01/24/20 at 23:46; Status DC Lorazepam (Ativan) 0.5 mg 1X ONCE PO Last administered on 01/25/20at 00:50; Start 01/25/20 at 00:45; Stop 01/25/20 at 00:46; Status DC Ondansetron HCl (Zofran) 4 mg PRN Q8HRS PRN IV NAUSEA/VOMITING 1ST CHOICE; Start 01/25/20 at 01:15; Stop 01/26/20 at 01:14 Trazodone HCl (Desyrel) 25 mg PRN QHS PRN PO INSOMNIA Last administered on 01/25/20at 03:17; Start 01/25/20 at 03:00 Tramadol HCl (Ultram) 50 mg PRN Q4HRS PRN PO MODERATE PAIN 4-6 Last administered on 01/25/20at 08:20; Start 01/25/20 at 03:00 Nitroglycerin (Nitrostat) 0.4 mg PRN Q5MIN PRN SL CHEST PAIN Last administered on 01/25/20at 08:22; Start 01/25/20 at 08:00 Active Scripts Active Tizanidine Hcl 4 Mg Tablet 4 Mg PO PRN Q8HRS PRN 10 Days Diclofenac Sodium 50 Mg Tablet.dr 1 Tab PO BID 5 Days Klor-Con M20 (Potassium Chloride) 20 Meq Tab.er.prt 20 Meq PO DAILYWBKFT 14 Days NITROGLYCERIN SubLingual (Nitroglycerin) 0.4 Mg Tab.subl 0.4 Mg SL PRN Q5MIN PRN Reported Tums (Calcium Carbonate) 200 Mg Tab.chew 200 Mg PO PRN Famotidine 40 Mg Tablet 40 Mg PO DAILY Isosorbide Mononitrate Er (Isosorbide Mononitrate) 30 Mg Tab.er.24h 30 Mg PO DAILY Metoprolol Tartrate 25 Mg Tablet 25 Mg PO BID Trazodone Hcl 100 Mg Tablet 100 Mg PO HS Clonazepam 0.5 Mg Tablet 0.5 Mg PO BID Omeprazole 20 Mg Capsule.dr 1 Cap PO DAILY Naproxen 500 Mg Tablet.dr 1 Tab PO BID Losartan Potassium (Losartan Potassium) 25 Mg Tablet 25 Mg PO DAILY Atorvastatin Calcium 40 Mg Tablet 1 Tab PO QHS Aspirin 81 Mg Tab.chew 1 Tab PO DAILY Tylenol (Acetaminophen) 325 Mg Tablet 650 Mg PO PRN Q4HRS PRN Allergies Allergies: Coded Allergies: hydrocodone (Verified Allergy, Intermediate, Itching, 10/25/16) swelling, itching ROS Review of System Review of Systems: Constitutional: Denies fever or chills. [] Eyes: Denies change in visual acuity. [] HENT: Denies nasal congestion or sore throat. [] Respiratory: Denies cough has shortness of breath. [] Cardiovascular: has chest pain no edema. [] GI: Denies abdominal pain, nausea, vomiting, bloody stools or diarrhea. [] : Denies dysuria. [] Musculoskeletal: Denies back pain or joint pain. [] Integument: Denies rash. [] Neurologic: Denies headache, focal weakness or sensory changes. [] Endocrine: Denies polyuria or polydipsia. [] Lymphatic: Denies swollen glands. [] Psychiatric: Denies depression or anxiety. [] 14 PT ROS OTHERWISE NEG General: YES: Fatigue ALLERGY AND IMMUNOLOGY: No: Hives, Insect Bite Sensitivity, Itchy/Watery Eyes, Nasal Congestion, Post Nasal Drip, Seasonal Allergies, Other Hematological and Lymphatic: No: Bleeding Problems, Blood Clots, Blood Transfusions, Brusing, Night Sweats, Pallor, Swollen Lymph Nodes, Other Cardiovascular: yes Chest Pain Neurological: No Behavorial Changes, No Bowel/Bladder ControlChng, No Confusion, No Dizziness, No Gait Disturbance, No Headaches, No Impaired C oord/balance, No Memory Loss, No Numbness/Tingling, No Seizures, No Speech Problems, No Tremors, No Visual Changes, No Weakness, No Other Physical Exam Physical Exam Constitutional: Well developed, well nourished, mild distress, non-toxic appearance. [] HENT: Normocephalic, atraumatic, bilateral external ears normal, oropharynx moist, no oral exudates, nose normal. [] Eyes: PERRL, EOMI, conjunctiva normal, no discharge. [] Neck: Normal range of motion, no tenderness, supple, no stridor. [] Cardiovascular:Heart rate regular rhythm, murmur [] Lungs & Thorax: Bilateral breath sounds clear to auscultation [] Abdomen: Bowel sounds normal, soft, no tenderness, no masses, no pulsatile masses. [] Skin: Warm, dry, no erythema, no rash. [] Back: No tenderness, no CVA tenderness. [] Extremities: No tenderness, no cyanosis, ROM intact, no edema. [] Neurologic: Alert and oriented X 3, normal motor function, normal sensory function, no focal deficits noted. [] Psychologic: Affect normal, judgment normal, mood normal. [] General: Alert, Oriented X3, Cooperative, mild distress Lungs: Clear to auscultation, Normal air movement Heart: RRR, no thrills, no gallops Breasts: Not examined Abdomen: Normal bowel sounds, Soft PELVIC: Examination not indicated Extremities: No cyanosis, No edema Neuro: Cranial nerves 3-12 NL Psych/Mental Status: Mental status NL, Mood NL Vitals Vitals Vital Signs Date Time Temp Pulse Resp B/P (MAP) Pulse Ox O2 Delivery O2 Flow Rate FiO2 01/25/20 08:22 68 178/84 01/25/20 08:20 18 95 Room Air 01/25/20 07:00 98.1 98.1 Labs Labs Laboratory Tests Test 01/24/20 23:35 01/24/20 23:40 01/25/20 06:55 White Blood Count 5.6 x10^3/uL (4.0-11.0) Red Blood Count 4.01 x10^6/uL (3.50-5.40) Hemoglobin 11.9 g/dL (12.0-15.5) Hematocrit 35.5 % (36.0-47.0) Mean Corpuscular Volume 89 fL (79-100) Mean Corpuscular Hemoglobin 30 pg (25-35) Mean Corpuscular Hemoglobin Concent 34 g/dL (31-37) Red Cell Distribution Width 14.7 % (11.5-14.5) Platelet Count 272 x10^3/uL (140-400) Neutrophils (%) (Auto) 35 % (31-73) Lymphocytes (%) (Auto) 55 % (24-48) Monocytes (%) (Auto) 8 % (0-9) Eosinophils (%) (Auto) 2 % (0-3) Basophils (%) (Auto) 1 % (0-3) Neutrophils # (Auto) 1.9 x10^3/uL (1.8-7.7) Lymphocytes # (Auto) 3.1 x10^3/uL (1.0-4.8) Monocytes # (Auto) 0.5 x10^3/uL (0.0-1.1) Eosinophils # (Auto) 0.1 x10^3/uL (0.0-0.7) Basophils # (Auto) 0.1 x10^3/uL (0.0-0.2) Sodium Level 143 mmol/L (136-145) Potassium Level 3.9 mmol/L (3.5-5.1) Chloride Level 103 mmol/L (98-107) Carbon Dioxide Level 30 mmol/L (21-32) Anion Gap 10 (6-14) Blood Urea Nitrogen 15 mg/dL (7-20) Creatinine 1.2 mg/dL (0.6-1.0) Estimated GFR (Cockcroft-Gault) 54.6 BUN/Creatinine Ratio 13 (6-20) Glucose Level 102 mg/dL (70-99) Calcium Level 9.0 mg/dL (8.5-10.1) Total Bilirubin 0.5 mg/dL (0.2-1.0) Aspartate Amino Transf (AST/SGOT) 16 U/L (15-37) Alanine Aminotransferase (ALT/SGPT) 18 U/L (14-59) Alkaline Phosphatase 84 U/L (46-116) Troponin I Quantitative < 0.017 ng/mL (0.000-0.055) < 0.017 ng/mL (0.000-0.055) Total Protein 6.7 g/dL (6.4-8.2) Albumin 3.9 g/dL (3.4-5.0) Albumin/Globulin Ratio 1.4 (1.0-1.7) Lipase 137 U/L (73-393) Bedside Troponin I 0.01 ng/ml (<0.08) Laboratory Tests Test 01/24/20 23:35 01/24/20 23:40 01/25/20 06:55 White Blood Count 5.6 x10^3/uL (4.0-11.0) Red Blood Count 4.01 x10^6/uL (3.50-5.40) Hemoglobin 11.9 g/dL (12.0-15.5) Hematocrit 35.5 % (36.0-47.0) Mean Corpuscular Volume 89 fL (79-100) Mean Corpuscular Hemoglobin 30 pg (25-35) Mean Corpuscular Hemoglobin Concent 34 g/dL (31-37) Red Cell Distribution Width 14.7 % (11.5-14.5) Platelet Count 272 x10^3/uL (140-400) Neutrophils (%) (Auto) 35 % (31-73) Lymphocytes (%) (Auto) 55 % (24-48) Monocytes (%) (Auto) 8 % (0-9) Eosinophils (%) (Auto) 2 % (0-3) Basophils (%) (Auto) 1 % (0-3) Neutrophils # (Auto) 1.9 x10^3/uL (1.8-7.7) Lymphocytes # (Auto) 3.1 x10^3/uL (1.0-4.8) Monocytes # (Auto) 0.5 x10^3/uL (0.0-1.1) Eosinophils # (Auto) 0.1 x10^3/uL (0.0-0.7) Basophils # (Auto) 0.1 x10^3/uL (0.0-0.2) Sodium Level 143 mmol/L (136-145) Potassium Level 3.9 mmol/L (3.5-5.1) Chloride Level 103 mmol/L (98-107) Carbon Dioxide Level 30 mmol/L (21-32) Anion Gap 10 (6-14) Blood Urea Nitrogen 15 mg/dL (7-20) Creatinine 1.2 mg/dL (0.6-1.0) Estimated GFR (Cockcroft-Gault) 54.6 BUN/Creatinine Ratio 13 (6-20) Glucose Level 102 mg/dL (70-99) Calcium Level 9.0 mg/dL (8.5-10.1) Total Bilirubin 0.5 mg/dL (0.2-1.0) Aspartate Amino Transf (AST/SGOT) 16 U/L (15-37) Alanine Aminotransferase (ALT/SGPT) 18 U/L (14-59) Alkaline Phosphatase 84 U/L (46-116) Troponin I Quantitative < 0.017 ng/mL (0.000-0.055) < 0.017 ng/mL (0.000-0.055) Total Protein 6.7 g/dL (6.4-8.2) Albumin 3.9 g/dL (3.4-5.0) Albumin/Globulin Ratio 1.4 (1.0-1.7) Lipase 137 U/L (73-393) Bedside Troponin I 0.01 ng/ml (<0.08) Images Images AP portable chest radiograph 01/24/2020 Clinical History: Chest pain. An AP erect portable digital radiograph of the chest was obtained. Comparison study is dated 01/03/2020. The Patient is post median sternotomy. The cardiac silhouette is borderline enlarged. The thoracic aorta is tortuous. Atherosclerotic calcification thoracic aorta is seen. No acute pulmonary infiltrate is noted. No pneumothorax or pleural effusion is seen. The osseous structures are unchanged. Impression: No acute abnormality is seen. Electronically signed by: Bladimir Escudero MD (01/25/2020 12:04 AM) [id number] DICTATED and SIGNED BY: BLADIMIR ESCUDERO MD DATE: 01/25/20 0004 APPROVED REPORT Patient Location: IN-PATIENT Indications Uncontrolled HTN Chronic Kidney disease Renal Artery Doppler Right Renal Artery Left Renal Artery Proximal 105.0/30.2 cm/sec Proximal 127.3/35.9 cm/sec Mid 88.3/29.4 cm/sec Mid 143.4/34.7 cm/sec Distal 65.2/21.9 cm/sec Distal 145.8/46.3 cm/sec Renal/Aorta Ratio 0.00 Renal/Aorta Ratio 1.75 Prox. Resistive Index 0.71 Prox. Resistive Index 0.72 Mid Resistive Index 0.67 Mid Resistive Index 0.76 Distal Resistive Index 0.66 Distal Resistive Index 0.68 Rt. Segmental A. 37.4/9.8 cm/sec Lt. Segmental A. 31.2/10.7 cm/sec Aortic Doppler Velocity Waveform Mid. Aorta 83.3 cm/sec Findings Grayscale images of the bilateral kidneys do not demonstrate any obvious evidence of masses on limited imaging. Spectral waveforms and color Doppler and velocities of the bilateral proximal middle and distal renal arteries are grossly within normal limits. Normal bilateral resistive indices and normal renal to aortic ratios bilaterally. No significant aortic velocity acceleration is noted. Normal kidney size bilateral ly. Critical Notification Critical Value: No <Conclusion> 1. No significant renal artery stenosis bilaterally Signed by : Reid Ennis, Electronically Approved : 01/25/2020 13:09:37 DICTATED and SIGNED BY: REID ENNIS MD DATE: 01/25/20 1220 VTE Prophylaxis Ordered VTE Prophylaxis Devices: No VTE Pharmacological Prophylaxi: Yes Assessment/Plan Assessment/Plan IMPRESSION UNSTABLE ANGINA UNCONTROLLED HYPERTENSION CAD: past CABG. C as noted above, clinically stable, trops nml EKG Sr unchanged HYPERLIPIDEMIA COPD: stable Huntingtons chorea PLAN ADMIT CVC CONSULT CARDIOLOGY SERIAL TROPONIN I dvt prophylaxis HOME MEDS FULL CODE echo D/W RN Justicifation of Admission Dx: Justifications for Admission: Justification of Admission Dx: Yes Angina: Cresendo Worsening of Sym Hypertension: Cresendo Worsening of Sym KAITLIN HERMAN MD Jan 25, 2020 10:19
--- NOTE | 2020-01-25 10:39 | NUR ---
SS following for discharge planning. SS reviewed pt chart and discussed with pt RN. Pt is from home and is currently on room air. Pt having cardiac work up. SS will continue to follow for discharge planning.
[2020-01-25 10:41] VITALS: BP 171/74
[2020-01-25 11:04] LABS: CHOLESTEROL/HDL RATIO 2.2
[2020-01-25] MEDS ORDERED: ACETAMINOPHEN 325 MG TABLET. PO PRN ×2 (12:15→14:30)
[2020-01-25] MEDS ORDERED: tiZANidine 4 MG TABLET. PO PRN (12:15)
--- NOTE | 2020-01-25 13:10 | RAD ---
MR#: [id number] Date of Study: 01/25/2020 Ordering Physician: GABY COOPER, Referring Physician: GABY COOPER, Tech: Lissa Sharpe RDMS, RVT, RTR APPROVED REPORT Patient Location: IN-PATIENT Indications Uncontrolled HTN Chronic Kidney disease Renal Artery Doppler Right Renal Artery Left Renal Arter y Proximal 105.0/30.2 cm/secProximal 127.3/35.9 cm/sec Mid 88.3/29.4 cm/secMid 143.4/34.7 cm/sec Distal 65.2/21.9 cm/secDistal 145.8/46.3 cm/sec Renal/Aorta Ratio 0.00Renal/Aorta Ratio 1.75 Prox. Resistive Index 0.71Prox. Resistive Index 0.72 Mid Resistive Index 0.67Mid Resistive Index 0.76 Distal Resistive Index 0.66Distal Resistive Index 0.68 Rt. Segmental A. 37.4/9.8 cm/secLt. Segmental A. 31.2/10.7 cm/sec Aortic Doppler VelocityWaveform Mid. Aorta 83.3 cm/sec Findings Grayscale images of the bilateral kidneys do not demonstrate any obvious evidence of masses on limite d imaging. Spectral waveforms and color Doppler and velocities of the bilateral proximal middle and distal renal arteries are grossly within normal limits. Normal bilateral resistive indices and normal renal to a ortic ratios bilaterally. No significant aortic velocity acceleration is noted. Normal kidney size bilaterally. Critical Notification Critical Value: No <Conclusion> 1. No significant renal artery stenosis bilaterally Signed by : Quinton Ennis, Electronically Approved : 01/25/2020 13:09:37
[2020-01-25] MEDS: ISOSORBIDE MONONITRATE ER 30 MG TAB.ER.24H PO SCH (13:16)
[2020-01-25] MEDS: FAMOTIDINE 20 MG TABLET. PO SCH (13:16)
[2020-01-25] MEDS: LOSARTAN POTASSIUM 25 MG TABLET. PO SCH (13:17)
[2020-01-25] MEDS: ASPIRIN CHEWABLE 81 MG TABLET. PO SCH (13:17)
[2020-01-25] MEDS: METOPROLOL TART IMMED RELEASE 25 MG TABLET. PO SCH ×2 (13:17→20:41)
[2020-01-25] MEDS: clonazePAM 0.5 MG TABLET PO SCH ×2 (13:17→20:40)
--- NOTE | 2020-01-25 14:24 | CARD ---
MR#: [id number] Date of Study: 01/25/2020 Ordering Physician: GABY COOPER, Referring Physician: GABY COOPER, Tech: Lissa Young APPROVED REPORT EXAM: Two-dimensional and M-mode echocardiogram with Doppler and color Doppler. Other Information HR: 59bpm INDICATION Abnormal ECG 2D DIMENSIONS Left Atrium(2D)3.3 (1.6-4.0cm)IVSd0.9 (0.7-1.1cm) Aortic Root(2D)2.5 (2.0-3.7cm)LVDd4.6 (3.9-5.9cm) LVOT Diameter1.9 (1.8-2.4cm)PWd0.9 (0.7-1.1cm) LVDs2.4 (2.5-4.0cm)FS (%) 47.7 % SV78.1 mlLVEF(%)79.1 (>50%) Aortic Valve AoV Peak Jorge.120.8cm/sAoV VTI25.5cm AO Peak GR.5.8mmHgLVOT Peak Jorge.104.8cm/s LVOT VTI 24.83cmAO Mean GR.3mmHg ERIC (VMAX)2.34xq8PWQ (VTI)2.87cm2 Mitral Valve MV E Ghuamscx14.1cm/sMV DECEL [id number] MV A Isenoaqt28.1cm/sMV E Mean Gr.2mmHg MV [id number] Ratio1.0 MVA (PHT)3.45cm2 TDI E/Lateral E'13.6E/Medial E'11.4 Pulmonary Valve PV Peak Frlpoump03.2cm/sPV Peak Grad.2mmHg Tricuspid Valve TR P. [id number]/sRAP [id number] TR Peak Gr.30msZnCYTO91ewKc Pulmonary Vein S1 Mmzkreqg65.5cm/sD2 Zosormcu94.6cm/s PVa [id number] LEFT VENTRICLE The left ventricle is normal size. There is normal left ventricular wall thickness. The left ventricu lar systolic function is normal and the ejection fraction is within normal range. The Ejection Fracti on is 50-55%. There is normal LV segmental wall motion. Transmitral Doppler flow pattern is Grade I-a bnormal relaxation pattern. RIGHT VENTRICLE The right ventricle is normal size. There is normal right ventricular wall thickness. The right ventr icular systolic function is normal. ATRIA The left atrium size is normal. The right atrium size is normal. The interatrial septum is intact wit h no evidence for an atrial septal defect or patent foramen ovale as noted on 2-D or Doppler imaging. AORTIC VALVE The aortic valve is mildly calcified. Doppler and Color Flow revealed no significant aortic regurgita tion. There is no significant aortic valvular stenosis. MITRAL VALVE The mitral valve is normal in structure and function. There is no evidence of mitral valve prolapse. There is no mitral valve stenosis. Doppler and Color-flow revealed trace mitral regurgitation. TRICUSPID VALVE The tricuspid valve is normal in structure and function. Doppler and Color Flow revealed trace tricus pid regurgitation with an estimated PAP of 29 mmHg. There is no tricuspid valve stenosis. PULMONIC VALVE The pulmonic valve is not well visualized. Doppler and Color Flow revealed trace pulmonic valvular re gurgitation. There is no pulmonic valvular stenosis. GREAT VESSELS The aortic root is normal in size. The IVC is normal in size and collapses >50% with inspiration. PERICARDIAL EFFUSION There is no evidence of significant pericardial effusion. Critical Notification Critical Value: No <Conclusion> The left ventricular systolic function is normal and the ejection fraction is within normal range. Th e Ejection Fraction is 50-55%. There is normal LV segmental wall motion. Signed by : Quinton Ennis, Electronically Approved : 01/25/2020 14:23:43
[2020-01-25] MEDS ORDERED: LORazepam 0.5 MG TABLET PO PRN (14:30)
[2020-01-25] MEDS ORDERED: ALBUTEROL SULFATE 2.5 MG/3 ML NEBU. NEB PRN (14:30)
[2020-01-25] MEDS ORDERED: ENOXAPARIN 40 MG/0.4 ML SYRINGE. SQ SCH (14:30)
[2020-01-25] MEDS ORDERED: 0.9 % SODIUM CHLORIDE 10 ML DISP.SYRIN. IV PRN (14:30)
[2020-01-25] MEDS ORDERED: guaiFENesin ORAL 200 MG/10 ML LIQUID. PO PRN (14:30)
[2020-01-25] MEDS ORDERED: MAG HYDROX/ALUMINUM HYD/SIMETH 30 ML ORAL.SUSP PO PRN (14:30)
[2020-01-25] MEDS ORDERED: DOCUSATE SODIUM 100 MG CAPSULE. PO PRN (14:30)
[2020-01-25] MEDS ORDERED: SODIUM PHOSPHATES 19/7GM 133 ML ENEMA. PR PRN (14:30)
[2020-01-25 15:00] VITALS: BP 123/60
[2020-01-25 19:20] VITALS: BP 101/58
[2020-01-25] MEDS ORDERED: clonazePAM 0.5 MG TABLET PO SCH (21:00)
[2020-01-25] MEDS ORDERED: ATORVASTATIN CALCIUM 40 MG TABLET. PO SCH (21:00)
[2020-01-25] MEDS ORDERED: METOPROLOL TART IMMED RELEASE 25 MG TABLET. PO SCH (21:00)
[2020-01-25] MEDS ORDERED: traZODone 100 MG TABLET. PO SCH (21:00)
[2020-01-25 23:28] VITALS: BP 109/64
[2020-01-26] MEDS: traMADol 50 MG TABLET PO PRN ×2 (02:47→08:26)
[2020-01-26 02:51] VITALS: BP 135/64
[2020-01-26 05:30] LABS: ALBUMIN 3.5 g/dL (3.4-5.0); CALCIUM 8.5 mg/dL (8.5-10.1); CREATININE 0.8 mg/dL (0.6-1.0); GFR 87.1; PHOSPHORUS 3.5 mg/dL (2.6-4.7); POTASSIUM 3.8 mmol/L (3.5-5.1)
[2020-01-26 07:00] VITALS: BP 155/72
[2020-01-26] MEDS ORDERED: POTASSIUM CHLORIDE 20 MEQ TABLET.ER. PO SCH (08:00)
[2020-01-26] MEDS: FAMOTIDINE 20 MG TABLET. PO SCH (08:25)
[2020-01-26] MEDS: clonazePAM 0.5 MG TABLET PO SCH (08:25)
[2020-01-26] MEDS: ISOSORBIDE MONONITRATE ER 30 MG TAB.ER.24H PO SCH (08:26)
[2020-01-26] MEDS: ASPIRIN CHEWABLE 81 MG TABLET. PO SCH (08:27)
[2020-01-26] MEDS: METOPROLOL TART IMMED RELEASE 25 MG TABLET. PO SCH (08:27)
[2020-01-26] MEDS: LOSARTAN POTASSIUM 25 MG TABLET. PO SCH (08:28)
[2020-01-26 08:59] LABS: BILIRUBIN,URINE NEGATIVE (NEG); CLARITY,URINE CLEAR; COLOR,URINE YELLOW; NITRITE,URINE NEGATIVE (NEG); PH,URINE 6.5 (<5.0-8.0); PROTEIN,URINE NEGATIVE (NEG-TRACE); UROBILINOGEN,URINE 0.2 mg/dL (0.2 mg/dL)
[2020-01-26] MEDS ORDERED: ASPIRIN CHEWABLE 81 MG TABLET. PO SCH (09:00)
[2020-01-26] MEDS ORDERED: ISOSORBIDE MONONITRATE ER 30 MG TAB.ER.24H PO SCH (09:00)
[2020-01-26] MEDS ORDERED: LOSARTAN POTASSIUM 25 MG TABLET. PO SCH (09:00)
[2020-01-26] MEDS ORDERED: FAMOTIDINE 20 MG TABLET. PO SCH (09:00)
[2020-01-26 09:09] LABS: BARBITURATES NEG (NEG); BENZODIAZEPINES NEG (NEG); CANNABINOIDS NEG (NEG); COCAINE NEG (NEG); METHADONE NEG (NEG); OPIATES NEG (NEG); PHENCYCLIDINE NEG (NEG)
[2020-01-26 09:12] LABS: AMPHETAMINE/METHAMPHETAMINE NEG (NEG)
[2020-01-26 09:32] LABS: BACTERIA,URINE FEW /HPF (0-FEW); RBC,URINE RARE /HPF (0-2); SQUAMOUS EPITHELIAL CELL,UR FEW /LPF
--- NOTE | 2020-01-26 10:10 | PDOC ---
PROGRESS NOTES History of Present Illness History of Present Illness TE Prophylaxis Ordered VTE Prophylaxis Devices: No VTE Pharmacological Prophylaxi: Yes DISCHARGE DX Assessment/Plan IMPRESSION UNSTABLE ANGINA RESOLVED UNCONTROLLED HYPERTENSION CAD: past CABG. [facility] as noted above, clinically stable, trops nml EKG Sr unchanged HYPERLIPIDEMIA COPD: stable [place] chorea PLAN ADMIT CVC CONSULT CARDIOLOGY SERIAL TROPONIN I dvt prophylaxis HOME MEDS FULL CODE echo D/W RN D/C PLANNING TIME 29 MIN Justicifation of Admission Dx: Justicifation of Admission Dx: Justifications for Admission: Justification of Admission Dx: Yes Angina: [place] Worsening of Sym Hypertension: [place] Worsening of Sym Vitals Vitals Vital Signs Date Time Temp Pulse Resp B/P (MAP) Pulse Ox O2 Delivery O2 Flow Rate FiO2 01/26/20 09:26 18 93 Room Air 01/26/20 08:28 66 155/72 01/26/20 07:00 98.2 98.2 Physical Exam General: Alert, Oriented X3, Cooperative, No acute distress Heart: Regular rate (SR), Normal S1, Normal S2, No murmurs Lungs: Clear Abdomen: Normal bowel sounds, Soft Extremities: No cyanosis, No edema Skin: No breakdown, No significant lesion Labs LABS Laboratory Tests Test 01/25/20 21:23 01/26/20 04:30 01/26/20 07:12 01/26/20 08:45 Glucose (Fingerstick) 83 mg/dL (70-99) 86 mg/dL (70-99) Sodium Level 139 mmol/L (136-145) Potassium Level 3.8 mmol/L (3.5-5.1) Chloride Level 102 mmol/L (98-107) Carbon Dioxide Level 31 mmol/L (21-32) Anion Gap 6 (6-14) Blood Urea Nitrogen 14 mg/dL (7-20) Creatinine 0.8 mg/dL (0.6-1.0) Estimated GFR (Cockcroft-Gault) 87.1 Glucose Level 144 mg/dL (70-99) Calcium Level 8.5 mg/dL (8.5-10.1) Phosphorus Level 3.5 mg/dL (2.6-4.7) Albumin 3.5 g/dL (3.4-5.0) Urine Collection Type Unknown Urine Color Yellow Urine Clarity Clear Urine pH 6.5 (<5.0-8.0) Urine Specific [place] 1.015 (1.000-1.030) Urine Protein Negative mg/dL (NEG-TRACE) Urine Glucose (UA) Negative mg/dL (NEG) Urine Ketones (Stick) Negative mg/dL (NEG) Urine Blood Negative (NEG) Urine Nitrite Negative (NEG) Urine Bilirubin Negative (NEG) Urine Urobilinogen Dipstick 0.2 mg/dL (0.2 mg/dL) Urine Leukocyte Esterase Negative (NEG) Urine RBC Rare /HPF (0-2) Urine WBC 1-4 /HPF (0-4) Urine Squamous Epithelial Cells Few /LPF Urine Bacteria Few /HPF (0-FEW) Urine Mucus Mod /LPF Urine Opiates Screen Neg (NEG) Urine Methadone Screen Neg (NEG) Urine Barbiturates Neg (NEG) Urine Phencyclidine Screen Neg (NEG) Urine Amphetamine/Methamphetamine Neg (NEG) Urine Benzodiazepines Screen Neg (NEG) Urine Cocaine Screen Neg (NEG) Urine Cannabinoids Screen Neg (NEG) Urine Ethyl Alcohol Neg (NEG) Assessment and Plan Assessmemt and Plan Problems Medical Problems: (1) Precordial chest pain Status: Acute Comment Review of Relevant I have reviewed the following items tata (where applicable) has been applied. Labs Laboratory Tests Test 01/24/20 23:35 01/24/20 23:40 01/25/20 06:55 01/25/20 21:23 White Blood Count 5.6 x10^3/uL (4.0-11.0) Red Blood Count 4.01 x10^6/uL (3.50-5.40) Hemoglobin 11.9 g/dL (12.0-15.5) Hematocrit 35.5 % (36.0-47.0) Mean Corpuscular Volume 89 fL (79-100) Mean Corpuscular Hemoglobin 30 pg (25-35) Mean Corpuscular Hemoglobin Concent 34 g/dL (31-37) Red Cell Distribution Width 14.7 % (11.5-14.5) Platelet Count 272 x10^3/uL (140-400) Neutrophils (%) (Auto) 35 % (31-73) Lymphocytes (%) (Auto) 55 % (24-48) Monocytes (%) (Auto) 8 % (0-9) Eosinophils (%) (Auto) 2 % (0-3) Basophils (%) (Auto) 1 % (0-3) Neutrophils # (Auto) 1.9 x10^3/uL (1.8-7.7) Lymphocytes # (Auto) 3.1 x10^3/uL (1.0-4.8) Monocytes # (Auto) 0.5 x10^3/uL (0.0-1.1) Eosinophils # (Auto) 0.1 x10^3/uL (0.0-0.7) Basophils # (Auto) 0.1 x10^3/uL (0.0-0.2) Sodium Level 143 mmol/L (136-145) Potassium Level 3.9 mmol/L (3.5-5.1) Chloride Level 103 mmol/L (98-107) Carbon Dioxide Level 30 mmol/L (21-32) Anion Gap 10 (6-14) Blood Urea Nitrogen 15 mg/dL (7-20) Creatinine 1.2 mg/dL (0.6-1.0) Estimated GFR (Cockcroft-Gault) 54.6 BUN/Creatinine Ratio 13 (6-20) Glucose Level 102 mg/dL (70-99) Calcium Level 9.0 mg/dL (8.5-10.1) Total Bilirubin 0.5 mg/dL (0.2-1.0) Aspartate Amino Transf (AST/SGOT) 16 U/L (15-37) Alanine Aminotransferase (ALT/SGPT) 18 U/L (14-59) Alkaline Phosphatase 84 U/L (46-116) Troponin I Quantitative < 0.017 ng/mL (0.000-0.055) < 0.017 ng/mL (0.000-0.055) Total Protein 6.7 g/dL (6.4-8.2) Albumin 3.9 g/dL (3.4-5.0) Albumin/Globulin Ratio 1.4 (1.0-1.7) Lipase 137 U/L (73-393) Bedside Troponin I 0.01 ng/ml (<0.08) Triglycerides Level 55 mg/dL (0-150) Cholesterol Level 122 mg/dL (0-200) LDL Cholesterol, Calculated 55 mg/dL (0-100) VLDL Cholesterol, Calculated 11 mg/dL (0-40) Non-HDL Cholesterol Calculated 66 mg/dL (0-129) HDL Cholesterol 56 mg/dL (40-60) Cholesterol/HDL Ratio 2.2 Thyroid Stimulating Hormone (TSH) 1.187 uIU/mL (0.358-3.74) Glucose (Fingerstick) 83 mg/dL (70-99) Test 01/26/20 04:30 01/26/20 07:12 01/26/20 08:45 Sodium Level 139 mmol/L (136-145) Potassium Level 3.8 mmol/L (3.5-5.1) Chloride Level 102 mmol/L (98-107) Carbon Dioxide Level 31 mmol/L (21-32) Anion Gap 6 (6-14) Blood Urea Nitrogen 14 mg/dL (7-20) Creatinine 0.8 mg/dL (0.6-1.0) Estimated GFR (Cockcroft-Gault) 87.1 Glucose Level 144 mg/dL (70-99) Calcium Level 8.5 mg/dL (8.5-10.1) Phosphorus Level 3.5 mg/dL (2.6-4.7) Albumin 3.5 g/dL (3.4-5.0) Glucose (Fingerstick) 86 mg/dL (70-99) Urine Collection Type Unknown Urine Color Yellow Urine Clarity Clear Urine pH 6.5 (<5.0-8.0) Urine Specific [place] 1.015 (1.000-1.030) Urine Protein Negative mg/dL (NEG-TRACE) Urine Glucose (UA) Negative mg/dL (NEG) Urine Ketones (Stick) Negative mg/dL (NEG) Urine Blood Negative (NEG) Urine Nitrite Negative (NEG) Urine Bilirubin Negative (NEG) Urine Urobilinogen Dipstick 0.2 mg/dL (0.2 mg/dL) Urine Leukocyte Esterase Negative (NEG) Urine RBC Rare /HPF (0-2) Urine WBC 1-4 /HPF (0-4) Urine Squamous Epithelial Cells Few /LPF Urine Bacteria Few /HPF (0-FEW) Urine Mucus Mod /LPF Urine Opiates Screen Neg (NEG) Urine Methadone Screen Neg (NEG) Urine Barbiturates Neg (NEG) Urine Phencyclidine Screen Neg (NEG) Urine Amphetamine/Methamphetamine Neg (NEG) Urine Benzodiazepines Screen Neg (NEG) Urine Cocaine Screen Neg (NEG) Urine Cannabinoids Screen Neg (NEG) Urine Ethyl Alcohol Neg (NEG) Laboratory Tests Test 01/25/20 21:23 01/26/20 04:30 01/26/20 07:12 01/26/20 08:45 Glucose (Fingerstick) 83 mg/dL (70-99) 86 mg/dL (70-99) Sodium Level 139 mmol/L (136-145) Potassium Level 3.8 mmol/L (3.5-5.1) Chloride Level 102 mmol/L (98-107) Carbon Dioxide Level 31 mmol/L (21-32) Anion Gap 6 (6-14) Blood Urea Nitrogen 14 mg/dL (7-20) Creatinine 0.8 mg/dL (0.6-1.0) Estimated GFR (Cockcroft-Gault) 87.1 Glucose Level 144 mg/dL (70-99) Calcium Level 8.5 mg/dL (8.5-10.1) Phosphorus Level 3.5 mg/dL (2.6-4.7) Albumin 3.5 g/dL (3.4-5.0) Urine Collection Type Unknown Urine Color Yellow Urine Clarity Clear Urine pH 6.5 (<5.0-8.0) Urine Specific [place] 1.015 (1.000-1.030) Urine Protein Negative mg/dL (NEG-TRACE) Urine Glucose (UA) Negative mg/dL (NEG) Urine Ketones (Stick) Negative mg/dL (NEG) Urine Blood Negative (NEG) Urine Nitrite Negative (NEG) Urine Bilirubin Negative (NEG) Urine Urobilinogen Dipstick 0.2 mg/dL (0.2 mg/dL) Urine Leukocyte Esterase Negative (NEG) Urine RBC Rare /HPF (0-2) Urine WBC 1-4 /HPF (0-4) Urine Squamous Epithelial Cells Few /LPF Urine Bacteria Few /HPF (0-FEW) Urine Mucus Mod /LPF Urine Opiates Screen Neg (NEG) Urine Methadone Screen Neg (NEG) Urine Barbiturates Neg (NEG) Urine Phencyclidine Screen Neg (NEG) Urine Amphetamine/Methamphetamine Neg (NEG) Urine Benzodiazepines Screen Neg (NEG) Urine Cocaine Screen Neg (NEG) Urine Cannabinoids Screen Neg (NEG) Urine Ethyl Alcohol Neg (NEG) Medications Current Medications Aspirin (Aspirin Chewable) 324 mg 1X ONCE PO Last administered on 01/24/20at 23:34; Start 01/24/20 at 23:45; Stop 01/24/20 at 23:46; Status DC Lorazepam (Ativan) 0.5 mg 1X ONCE PO Last administered on 01/25/20at 00:50; Start 01/25/20 at 00:45; Stop 01/25/20 at 00:46; Status DC Ondansetron HCl (Zofran) 4 mg PRN Q8HRS PRN IV NAUSEA/VOMITING 1ST CHOICE; Start 01/25/20 at 01:15; Stop 01/26/20 at 01:14; Status DC Trazodone HCl (Desyrel) 25 mg PRN QHS PRN PO INSOMNIA Last administered on 01/25/20at 03:17; Start 01/25/20 at 03:00 Tramadol HCl (Ultram) 50 mg PRN Q4HRS PRN PO MODERATE PAIN 4-6 Last administered on 01/26/20at 08:26; Start 01/25/20 at 03:00 Nitroglycerin (Nitrostat) 0.4 mg PRN Q5MIN PRN SL CHEST PAIN Last administered on 01/25/20at 08:22; Start 01/25/20 at 08:00 Acetaminophen (Tylenol) 650 mg PRN Q4HRS PRN PO PAIN; Start 01/25/20 at 12:15; Stop 01/26/20 at 07:45; Status DC Aspirin (Aspirin Chewable) 81 mg DAILY PO ; Start 01/26/20 at 09:00; Stop 01/25/20 at 13:05; Status DC Atorvastatin Calcium (Lipitor) 40 mg QHS PO Last administered on 01/25/20at 20: 40; Start 01/25/20 at 21:00 Clonazepam (KlonoPIN) 0.5 mg BID PO ; Start 01/25/20 at 21:00; Stop 01/25/20 at 13:05; Status DC Isosorbide Mononitrate (Imdur) 30 mg DAILY PO ; Start 01/26/20 at 09:00; Stop 01/25/20 at 13:05; Status DC Losartan Potassium (Cozaar) 25 mg DAILY PO ; Start 01/26/20 at 09:00; Stop 01/25/20 at 13:05; Status DC Metoprolol Tartrate (Lopressor) 25 mg BID PO ; Start 01/25/20 at 21:00; Stop 01/25/20 at 13:05; Status DC Potassium Chloride (Klor-Con) 20 meq DAILYWBKFT PO Last administered on 01/26/20 08:25; Start 01/26/20 at 08:00 Tizanidine HCl (Zanaflex) 4 mg PRN Q8HRS PRN PO MUSCLE SPASMS; Start 01/25/20 a t 12:15 Trazodone HCl (Desyrel) 100 mg HS PO Last administered on 01/25/20at 20:40; Start 01/25/20 at 21:00 Famotidine (Pepcid) 40 mg DAILY PO ; Start 01/26/20 at 09:00; Stop 01/25/20 at 13:05; Status DC Aspirin (Aspirin Chewable) 81 mg DAILY PO Last administered on 01/26/20 08:27; Start 01/25/20 at 14:00 Clonazepam (KlonoPIN) 0.5 mg BID PO Last administered on 01/26/20 08:25; Start 01/25/20 at 14:00 Famotidine (Pepcid) 40 mg DAILY PO Last administered on 01/26/20 08:25; Start 01/25/20 at 14:00 Isosorbide Mononitrate (Imdur) 30 mg DAILY PO Last administered on 01/26/20 08:26; Start 01/25/20 at 14:00 Losartan Potassium (Cozaar) 25 mg DAILY PO Last administered on 01/26/20 08:28; Start 01/25/20 at 14:00 Metoprolol Tartrate (Lopressor) 25 mg BID PO Last administered on 01/26/20 08:27; Start 01/25/20 at 14:00 Sodium Chloride (Normal Saline Flush) 3 ml QSHIFT PRN IV AFTER MEDS AND BLOOD DRAWS; Start 01/25/20 at 14:30 Ondansetron HCl (Zofran) 4 mg PRN Q4HRS PRN IV NAUSEA/VOMITING; Start 01/25/20 at 14:30 Acetaminophen (Tylenol) 650 mg PRN Q4HRS PRN PO TEMP OVER 100.4F OR MILD PAIN Last administered on 01/26/20 08:26; Start 01/25/20 at 14:30 Al Hydroxide/Mg Hydroxide (Mylanta Plus Xs) 30 ml PRN DAILY PRN PO HEARTBURN / GAS; Start 01/25/20 at 14:30 Sodium Monofluorophosphate (Fleet Adult) 133 ml PRN DAILY PRN [place] CONSTIPATION; Start 01/25/20 at 14:30 Docusate Sodium (Colace) 100 mg PRN BID PRN PO HARD STOOLS; Start 01/25/20 at 14:30 Albuterol Sulfate (Ventolin Neb Soln) 2.5 mg PRN Q4HRS PRN NEB SHORTNESS OF BREATH; Start 01/25/20 at 14:30 Guaifenesin (Robitussin) 200 mg PRN Q4HRS PRN PO COUGH; Start 01/25/20 at 14:30 Lorazepam (Ativan) 0.5 mg PRN Q4HRS PRN PO ANXIETY / AGITATION; Start 01/25/20 at 14:30 Enoxaparin Sodium (Lovenox 40mg Syringe) 40 mg Q24H SQ ; Start 01/25/20 at 14:30 Active Scripts Active Tizanidine Hcl 4 Mg Tablet 4 Mg PO PRN Q8HRS PRN 10 Days Diclofenac Sodium 50 Mg Tablet. 1 Tab PO BID 5 Days Klor-Con M20 (Potassium Chloride) 20 Meq Tab.er.prt 20 Meq PO DAILYWBKFT 14 Days NITROGLYCERIN SubLingual (Nitroglycerin) 0.4 Mg Tab.subl 0.4 Mg SL PRN Q5MIN PRN Reported Tums (Calcium Carbonate) 200 Mg Tab.chew 200 Mg PO PRN Famotidine 40 Mg Tablet 40 Mg PO DAILY Isosorbide Mononitrate Er (Isosorbide Mononitrate) 30 Mg Tab.er.24h 30 Mg PO DAILY Metoprolol Tartrate 25 Mg Tablet 25 Mg PO BID Trazodone Hcl 100 Mg Tablet 100 Mg PO HS Clonazepam 0.5 Mg Tablet 0.5 Mg PO BID Omeprazole 20 Mg Capsule. 1 Cap PO DAILY Naproxen 500 Mg Tablet. 1 Tab PO BID Losartan Potassium (Losartan Potassium) 25 Mg Tablet 25 Mg PO DAILY Atorvastatin Calcium 40 Mg Tablet 1 Tab PO QHS Aspirin 81 Mg Tab.chew 1 Tab PO DAILY Tylenol (Acetaminophen) 325 Mg Tablet 650 Mg PO PRN Q4HRS PRN Vitals/I & O Vital Sign - Last 24 Hours 01/25/20 01/25/20 01/25/20 01/25/20 10:41 13:16 13:17 13:17 Temp 98.5 98.5 Pulse 64 64 64 64 Resp 18 B/P (MAP) 171/74 (106) 171/74 171/74 171/74 Pulse Ox 93 O2 Delivery Room Air 01/25/20 01/25/20 01/25/20 01/25/20 13:22 14:22 15:00 19:20 Temp 97.1 98.1 97.1 98.1 Pulse 66 55 Resp 18 18 18 B/P (MAP) 123/60 (81) 101/58 (72) Pulse Ox 93 93 93 93 O2 Delivery Room Air Room Air Room Air Room Air 01/25/20 01/25/20 01/25/20 01/25/20 19:37 19:41 20:41 20:42 Pulse 73 Resp 18 16 B/P (MAP) 101/58 O2 Delivery Room Air Room Air Room Air 01/25/20 01/26/20 01/26/20 01/26/20 23:28 02:47 02:51 03:50 Temp 98.0 98.0 98.0 98.0 Pulse 59 62 Resp 18 16 18 16 B/P (MAP) 109/64 (79) 135/64 (87) Pulse Ox 92 92 O2 Delivery Room Air Room Air Room Air Room Air 01/26/20 01/26/20 01/26/20 01/26/20 07:00 08:00 08:26 08:26 Temp 98.2 98.2 Pulse 57 66 Resp 18 18 B/P (MAP) 155/72 (99) 155/72 Pulse Ox 93 93 O2 Delivery Room Air Room Air Room Air 01/26/20 01/26/20 01/26/20 08:27 08:28 09:26 Pulse 66 66 Resp 18 B/P (MAP) 155/72 155/72 Pulse Ox 93 O2 Delivery Room Air Intake and Output 01/25/20 01/25/20 01/26/20 15:00 23:00 07:00 Intake Total 120 ml 120 ml 400 ml Output Total 120 ml Balance 0 ml 120 ml 400 ml KAITLIN HERMAN MD Jan 26, 2020 10:10
[2020-01-26 10:49] VITALS: BP 136/72
--- NOTE | 2020-01-26 12:59 | PDOC3 ---
Discharge Summary Date of Admission: Jan 24, 2020 Date of Discharge: Jan 26, 2020 Follow-Up: 3-5 days Admitting Diagnosis comment: DISCHARGE DX Assessment/Plan IMPRESSION UNSTABLE ANGINA RESOLVED UNCONTROLLED HYPERTENSION CAD: past CABG. C as noted above, clinically stable, trops nml EKG Sr unchanged HYPERLIPIDEMIA COPD: stable [place] chorea PLAN ADMIT CVC CONSULT CARDIOLOGY NV RULED OUT SERIAL TROPONIN I dvt prophylaxis HOME MEDS FULL CODE echo D/W RN D/C PLANNING TIME 29 MIN Justicifation of Admission Dx: Justicifation of Admission Dx: Justifications for Admission: Justification of Admission Dx: Yes Angina: [place] Worsening of Sym Hypertension: [place] Worsening of Sym Vitals Vitals Vital Signs Date Time Temp Pulse Resp B/P (MAP) Pulse Ox O2 Delivery O2 Flow Rate FiO2 01/26/20 09:26 18 93 Room Air 01/26/20 08:28 66 155/72 01/26/20 07:00 98.2 98.2 Physical Exam General: Alert, Oriented X3, Cooperative, No acute distress Heart: Regular rate (SR), Normal S1, Normal S2, No murmurs Lungs: Clear Abdomen: Normal bowel sounds, Soft Extremities: No cyanosis, No edema Skin: No breakdown, No significant lesion Labs LABS Laboratory Tests Test 01/25/20 21:23 01/26/20 04:30 01/26/20 07:12 01/26/20 08:45 Glucose (Fingerstick) 83 mg/dL (70-99) 86 mg/dL (70-99) Sodium Level 139 mmol/L (136-145) Potassium Level 3.8 mmol/L (3.5-5.1) Chloride Level 102 mmol/L (98-107) Carbon Dioxide Level 31 mmol/L (21-32) Anion Gap 6 (6-14) Blood Urea Nitrogen 14 mg/dL (7-20) Creatinine 0.8 mg/dL (0.6-1.0) Estimated GFR (Cockcroft-Gault) 87.1 Glucose Level 144 mg/dL (70-99) Calcium Level 8.5 mg/dL (8.5-10.1) Phosphorus Level 3.5 mg/dL (2.6-4.7) Albumin 3.5 g/dL (3.4-5.0) Urine Collection Type Unknown Urine Color Yellow Urine Clarity Clear Urine pH 6.5 (<5.0-8.0) Urine Specific [place] 1.015 (1.000-1.030) Urine Protein Negative mg/dL (NEG-TRACE) Urine Glucose (UA) Negative mg/dL (NEG) Urine Ketones (Stick) Negative mg/dL (NEG) Urine Blood Negative (NEG) Urine Nitrite Negative (NEG) Urine Bilirubin Negative (NEG) Urine Urobilinogen Dipstick 0.2 mg/dL (0.2 mg/dL) Urine Leukocyte Esterase Negative (NEG) Urine RBC Rare /HPF (0-2) Urine WBC 1-4 /HPF (0-4) Urine Squamous Epithelial Cells Few /LPF Urine Bacteria Few /HPF (0-FEW) Urine Mucus Mod /LPF Urine Opiates Screen Neg (NEG) Urine Methadone Screen Neg (NEG) Urine Barbiturates Neg (NEG) Urine Phencyclidine Screen Neg (NEG) Urine Amphetamine/Methamphetamine Neg (NEG) Urine Benzodiazepines Screen Neg (NEG) Urine Cocaine Screen Neg (NEG) Urine Cannabinoids Screen Neg (NEG) Urine Ethyl Alcohol Neg (NEG) Assessment and Plan Assessmemt and Plan Problems Medical Problems: (1) Precordial chest pain Status: Acute FINAL DIAGNOSIS Problems Medical Problems: (1) Precordial chest pain Status: Acute Brief Hospital Course Ms. Minaya is a 64 old [sex] who presented with [UNSTABLE ANGINA ] CONDITION AT DISCHARGE: Improved Discharge Medications Current Medications Aspirin (Aspirin Chewable) 324 mg 1X ONCE PO Last administered on 01/24/20at 23:34; Start 01/24/20 at 23:45; Stop 01/24/20 at 23:46; Status DC Lorazepam (Ativan) 0.5 mg 1X ONCE PO Last administered on 01/25/20at 00:50; Start 01/25/20 at 00:45; Stop 01/25/20 at 00:46; Status DC Ondansetron HCl (Zofran) 4 mg PRN Q8HRS PRN IV NAUSEA/VOMITING 1ST CHOICE; Start 01/25/20 at 01:15; Stop 01/26/20 at 01:14; Status DC Trazodone HCl (Desyrel) 25 mg PRN QHS PRN PO INSOMNIA Last administered on 01/25/20at 03:17; Start 01/25/20 at 03:00 Tramadol HCl (Ultram) 50 mg PRN Q4HRS PRN PO MODERATE PAIN 4-6 Last administered on 01/26/20at 08:26; Start 01/25/20 at 03:00 Nitroglycerin (Nitrostat) 0.4 mg PRN Q5MIN PRN SL CHEST PAIN Last administered on 01/25/20at 08:22; Start 01/25/20 at 08:00 Acetaminophen (Tylenol) 650 mg PRN Q4HRS PRN PO PAIN; Start 01/25/20 at 12:15; Stop 01/26/20 at 07:45; Status DC Aspirin (Aspirin Chewable) 81 mg DAILY PO ; Start 01/26/20 at 09:00; Stop 01/25/20 at 13:05; Status DC Atorvastatin Calcium (Lipitor) 40 mg QHS PO Last administered on 01/25/20at 20:40; Start 01/25/20 at 21:00 Clonazepam (KlonoPIN) 0.5 mg BID PO ; Start 01/25/20 at 21:00; Stop 01/25/20 at 13:05; Status DC Isosorbide Mononitrate (Imdur) 30 mg DAILY PO ; Start 01/26/20 at 09:00; Stop 01/25/20 at 13:05; Status DC Losartan Potassium (Cozaar) 25 mg DAILY PO ; Start 01/26/20 at 09:00; Stop 01/25/20 at 13:05; Status DC Metoprolol Tartrate (Lopressor) 25 mg BID PO ; Start 01/25/20 at 21:00; Stop 01/25/20 at 13:05; Status DC Potassium Chloride (Klor-Con) 20 meq DAILYWBKFT PO Last administered on 01/26/20at 08:25; Start 01/26/20 at 08:00 Tizanidine HCl (Zanaflex) 4 mg PRN Q8HRS PRN PO MUSCLE SPASMS; Start 01/25/20 at 12:15 Trazodone HCl (Desyrel) 100 mg HS PO Last administered on 01/25/20at 20:40; Start 01/25/20 at 21:00 Famotidine (Pepcid) 40 mg DAILY PO ; Start 01/26/20 at 09:00; Stop 01/25/20 at 13:05; Status DC Aspirin (Aspirin Chewable) 81 mg DAILY PO Last administered on 01/26/20 08:27; Start 01/25/20 at 14:00 Clonazepam (KlonoPIN) 0.5 mg BID PO Last administered on 01/26/20 08:25; Start 01/25/20 at 14:00 Famotidine (Pepcid) 40 mg DAILY PO Last administered on 01/26/20 08:25; Start 01/25/20 at 14:00 Isosorbide Mononitrate (Imdur) 30 mg DAILY PO Last administered on 01/26/20 08:26; Start 01/25/20 at 14:00 Losartan Potassium (Cozaar) 25 mg DAILY PO Last administered on 01/26/20 08:28; Start 01/25/20 at 14:00 Metoprolol Tartrate (Lopressor) 25 mg BID PO Last administered on 01/26/20 08:27; Start 01/25/20 at 14:00 Sodium Chloride (Normal Saline Flush) 3 ml QSHIFT PRN IV AFTER MEDS AND BLOOD DRAWS; Start 01/25/20 at 14:30 Ondansetron HCl (Zofran) 4 mg PRN Q4HRS PRN IV NAUSEA/VOMITING; Start 01/25/20 at 14:30 Acetaminophen (Tylenol) 650 mg PRN Q4HRS PRN PO TEMP OVER 100.4F OR MILD PAIN Last administered on 01/26/20 08:26; Start 01/25/20 at 14:30 Al Hydroxide/Mg Hydroxide (Mylanta Plus Xs) 30 ml PRN DAILY PRN PO HEARTBURN / GAS; Start 01/25/20 at 14:30 Sodium Monofluorophosphate (Fleet Adult) 133 ml PRN DAILY PRN OK CONSTIPATION; Start 01/25/20 at 14:30 Docusate Sodium (Colace) 100 mg PRN BID PRN PO HARD STOOLS; Start 01/25/20 at 14:30 Albuterol Sulfate (Ventolin Neb Soln) 2.5 mg PRN Q4HRS PRN NEB SHORTNESS OF BREATH; Start 01/25/20 at 14:30 Guaifenesin (Robitussin) 200 mg PRN Q4HRS PRN PO COUGH; Start 01/25/20 at 14:30 Lorazepam (Ativan) 0.5 mg PRN Q4HRS PRN PO ANXIETY / AGITATION; Start 01/25/20 at 14:30 Enoxaparin Sodium (Lovenox 40mg Syringe) 40 mg Q24H SQ ; Start 01/25/20 at 14:30 Active Scripts Active Tizanidine Hcl 4 Mg Tablet 4 Mg PO PRN Q8HRS PRN 10 Days Diclofenac Sodium 50 Mg Tablet.dr 1 Tab PO BID 5 Days Klor-Con M20 (Potassium Chloride) 20 Meq Tab.er.prt 20 Meq PO DAILYWBKFT 14 Days NITROGLYCERIN SubLingual (Nitroglycerin) 0.4 Mg Tab.subl 0.4 Mg SL PRN Q5MIN PRN Reported Tums (Calcium Carbonate) 200 Mg Tab.chew 200 Mg PO PRN Famotidine 40 Mg Tablet 40 Mg PO DAILY Isosorbide Mononitrate Er (Isosorbide Mononitrate) 30 Mg Tab.er.24h 30 Mg PO DAILY Metoprolol Tartrate 25 Mg Tablet 25 Mg PO BID Trazodone Hcl 100 Mg Tablet 100 Mg PO HS Clonazepam 0.5 Mg Tablet 0.5 Mg PO BID Omeprazole 20 Mg Capsule.dr 1 Cap PO DAILY Naproxen 500 Mg Tablet.dr 1 Tab PO BID Losartan Potassium (Losartan Potassium) 25 Mg Tablet 25 Mg PO DAILY Atorvastatin Calcium 40 Mg Tablet 1 Tab PO QHS Aspirin 81 Mg Tab.chew 1 Tab PO DAILY Tylenol (Acetaminophen) 325 Mg Tablet 650 Mg PO PRN Q4HRS PRN Vital Signs Vital Signs Date Time Temp Pulse Resp B/P (MAP) Pulse Ox O2 Delivery O2 Flow Rate FiO2 01/26/20 10:49 98.2 56 18 136/72 (93) 94 Room Air 98.2 Labs Laboratory Tests Test 01/24/20 23:35 01/24/20 23:40 01/25/20 06:55 01/25/20 21:23 White Blood Count 5.6 x10^3/uL (4.0-11.0) Red Blood Count 4.01 x10^6/uL (3.50-5.40) Hemoglobin 11.9 g/dL (12.0-15.5) Hematocrit 35.5 % (36.0-47.0) Mean Corpuscular Volume 89 fL (79-100) Mean Corpuscular Hemoglobin 30 pg (25-35) Mean Corpuscular Hemoglobin Concent 34 g/dL (31-37) Red Cell Distribution Width 14.7 % (11.5-14.5) Platelet Count 272 x10^3/uL (140-400) Neutrophils (%) (Auto) 35 % (31-73) Lymphocytes (%) (Auto) 55 % (24-48) Monocytes (%) (Auto) 8 % (0-9) Eosinophils (%) (Auto) 2 % (0-3) Basophils (%) (Auto) 1 % (0-3) Neutrophils # (Auto) 1.9 x10^3/uL (1.8-7.7) Lymphocytes # (Auto) 3.1 x10^3/uL (1.0-4.8) Monocytes # (Auto) 0.5 x10^3/uL (0.0-1.1) Eosinophils # (Auto) 0.1 x10^3/uL (0.0-0.7) Basophils # (Auto) 0.1 x10^3/uL (0.0-0.2) Sodium Level 143 mmol/L (136-145) Potassium Level 3.9 mmol/L (3.5-5.1) Chloride Level 103 mmol/L (98-107) Carbon Dioxide Level 30 mmol/L (21-32) Anion Gap 10 (6-14) Blood Urea Nitrogen 15 mg/dL (7-20) Creatinine 1.2 mg/dL (0.6-1.0) Estimated GFR (Cockcroft-Gault) 54.6 BUN/Creatinine Ratio 13 (6-20) Glucose Level 102 mg/dL (70-99) Calcium Level 9.0 mg/dL (8.5-10.1) Total Bilirubin 0.5 mg/dL (0.2-1.0) Aspartate Amino Transf (AST/SGOT) 16 U/L (15-37) Alanine Aminotransferase (ALT/SGPT) 18 U/L (14-59) Alkaline Phosphatase 84 U/L (46-116) Troponin I Quantitative < 0.017 ng/mL (0.000-0.055) < 0.017 ng/mL (0.000-0.055) Total Protein 6.7 g/dL (6.4-8.2) Albumin 3.9 g/dL (3.4-5.0) Albumin/Globulin Ratio 1.4 (1.0-1.7) Lipase 137 U/L (73-393) Bedside Troponin I 0.01 ng/ml (<0.08) Triglycerides Level 55 mg/dL (0-150) Cholesterol Level 122 mg/dL (0-200) LDL Cholesterol, Calculated 55 mg/dL (0-100) VLDL Cholesterol, Calculated 11 mg/dL (0-40) Non-HDL Cholesterol Calculated 66 mg/dL (0-129) HDL Cholesterol 56 mg/dL (40-60) Cholesterol/HDL Ratio 2.2 Thyroid Stimulating Hormone (TSH) 1.187 uIU/mL (0.358-3.74) Glucose (Fingerstick) 83 mg/dL (70-99) Test 01/26/20 04:30 01/26/20 07:12 01/26/20 08:45 01/26/20 11:22 Sodium Level 139 mmol/L (136-145) Potassium Level 3.8 mmol/L (3.5-5.1) Chloride Level 102 mmol/L (98-107) Carbon Dioxide Level 31 mmol/L (21-32) Anion Gap 6 (6-14) Blood Urea Nitrogen 14 mg/dL (7-20) Creatinine 0.8 mg/dL (0.6-1.0) Estimated GFR (Cockcroft-Gault) 87.1 Glucose Level 144 mg/dL (70-99) Calcium Level 8.5 mg/dL (8.5-10.1) Phosphorus Level 3.5 mg/dL (2.6-4.7) Albumin 3.5 g/dL (3.4-5.0) Glucose (Fingerstick) 86 mg/dL (70-99) 97 mg/dL (70-99) Urine Collection Type Unknown Urine Color Yellow Urine Clarity Clear Urine pH 6.5 (<5.0-8.0) Urine Specific [place] 1.015 (1.000-1.030) Urine Protein Negative mg/dL (NEG-TRACE) Urine Glucose (UA) Negative mg/dL (NEG) Urine Ketones (Stick) Negative mg/dL (NEG) Urine Blood Negative (NEG) Urine Nitrite Negative (NEG) Urine Bilirubin Negative (NEG) Urine Urobilinogen Dipstick 0.2 mg/dL (0.2 mg/dL) Urine Leukocyte Esterase Negative (NEG) Urine RBC Rare /HPF (0-2) Urine WBC 1-4 /HPF (0-4) Urine Squamous Epithelial Cells Few /LPF Urine Bacteria Few /HPF (0-FEW) Urine Mucus Mod /LPF Urine Opiates Screen Neg (NEG) Urine Methadone Screen Neg (NEG) Urine Barbiturates Neg (NEG) Urine Phencyclidine Screen Neg (NEG) Urine Amphetamine/Methamphetamine Neg (NEG) Urine Benzodiazepines Screen Neg (NEG) Urine Cocaine Screen Neg (NEG) Urine Cannabinoids Screen Neg (NEG) Urine Ethyl Alcohol Neg (NEG) Laboratory Tests Test 01/25/20 21:23 01/26/20 04:30 01/26/20 07:12 01/26/20 08:45 Glucose (Fingerstick) 83 mg/dL (70-99) 86 mg/dL (70-99) Sodium Level 139 mmol/L (136-145) Potassium Level 3.8 mmol/L (3.5-5.1) Chloride Level 102 mmol/L (98-107) Carbon Dioxide Level 31 mmol/L (21-32) Anion Gap 6 (6-14) Blood Urea Nitrogen 14 mg/dL (7-20) Creatinine 0.8 mg/dL (0.6-1.0) Estimated GFR (Cockcroft-Gault) 87.1 Glucose Level 144 mg/dL (70-99) Calcium Level 8.5 mg/dL (8.5-10.1) Phosphorus Level 3.5 mg/dL (2.6-4.7) Albumin 3.5 g/dL (3.4-5.0) Urine Collection Type Unknown Urine Color Yellow Urine Clarity Clear Urine pH 6.5 (<5.0-8.0) Urine Specific [place] 1.015 (1.000-1.030) Urine Protein Negative mg/dL (NEG-TRACE) Urine Glucose (UA) Negative mg/dL (NEG) Urine Ketones (Stick) Negative mg/dL (NEG) Urine Blood Negative (NEG) Urine Nitrite Negative (NEG) Urine Bilirubin Negative (NEG) Urine Urobilinogen Dipstick 0.2 mg/dL (0.2 mg/dL) Urine Leukocyte Esterase Negative (NEG) Urine RBC Rare /HPF (0-2) Urine WBC 1-4 /HPF (0-4) Urine Squamous Epithelial Cells Few /LPF Urine Bacteria Few /HPF (0-FEW) Urine Mucus Mod /LPF Urine Opiates Screen Neg (NEG) Urine Methadone Screen Neg (NEG) Urine Barbiturates Neg (NEG) Urine Phencyclidine Screen Neg (NEG) Urine Amphetamine/Methamphetamine Neg (NEG) Urine Benzodiazepines Screen Neg (NEG) Urine Cocaine Screen Neg (NEG) Urine Cannabinoids Screen Neg (NEG) Urine Ethyl Alcohol Neg (NEG) Test 01/26/20 11:22 Glucose (Fingerstick) 97 mg/dL (70-99) Allergies Allergies Coded Allergies Type Severity Reaction Last Updated Verified hydrocodone Allergy Intermediate Itching 10/25/16 Yes Disposition/Orders: D/C to Home Justicifation of Admission Dx: Justifications for Admission: Justification of Admission Dx: Yes Angina: [place] Worsening of Sym Hypertension: [place] Worsening of Sym KAITLIN HERMAN MD Jan 26, 2020 12:59
[2020-01-26] MEDS ORDERED: DOCU-153 PO (13:03)
[2020-01-26] MEDS ORDERED: TRAM50TA PO (13:03)
[2020-01-26] MEDS ORDERED: ACET325T9 PO (13:03)
[2020-01-26] MEDS ORDERED: ALBU2.5V8 NEB (13:03)
[2020-01-26] MEDS ORDERED: GUAI100L12 PO (13:03)
--- NOTE | 2020-01-26 13:05 | DISCH ---
DISCHARGE INSTRUCTIONS Condition on Discharge Condition on Discharge: Stable Activity After Discharge Activity Instructions for Disc: Activity as tolerated Lifting Instructions after Dis: No heavy lifting, No pulling or pushing Driving Instructions after Dis: Do not drive Weight Bearing Status after Di: As tolerated Diet after Discharge Diet after Discharge: Cardiac Diet Texture: Regular Liquid Texture: Thin Liquid Swallowing Supervision: None needed Wound Incision Care Wound/Incision Care: No wound care needed Checks after Discharge Checks after discharge: Check blood press - daily, Check your Temp as needed Contacting the DR. after DC Call your doctor for: If your condition worsens Treatment/Equipment after DC Adaptive Equipment Issued: None KAITLIN HERMAN MD Jan 26, 2020 13:04
--- NOTE | 2020-01-26 16:05 | NUR ---
Discharge Note: MAGUE NOVAK Discharge instructions and discharge home medications reviewed with Patient and a copy given. Importance of medication compliance and following up with cardiology emphasized. All questions have been answered and understanding verbalized. The following instructions and handouts were given: Discontinued line and catheter intact. Patient discharged to home with self-care via private vehicle.
== END 2020-01-26 15:20 | disposition home or self-care (01) ==
LOC: ER 23:23 → 2 SOUTH 01-25 01:05
PROVIDERS: ADMIT Internal Medicine; ATTEND Internal Medicine
DX: R07.2 Precordial pain (principal); I10 Essential (primary) hypertension; J44.9 Chronic obstructive pulmonary disease, unspecified; I25.110 Atherosclerotic heart disease of native coronary artery with unstable angina pectoris; E78.5 Hyperlipidemia, unspecified; G10 Huntington's disease; E78.00 Pure hypercholesterolemia, unspecified; F20.9 Schizophrenia, unspecified; Z95.1 Presence of aortocoronary bypass graft; Z87.891 Personal history of nicotine dependence
CPT/HCPCS: 36415; 71045; 76770; 80053; 80061; 80069; 80307; 81001; 82962; 83690; 84443; 84484; 85025; 93005; 93306; G0378; G0379